=== PATIENT | female | born 1950 | race Caucasian/White ===

== ENCOUNTER 2021-05-30 07:11 | Outpatient (REF) | payer MEDICARE, SELFPAY ==
[2021-05-30 11:53] LABS: Alanine Aminotransferase 16 U/L (0-31); Albumin Level 4.5 g/dL (3.5-5.0); Alkaline Phosphatase 74 U/L (39-117); Anion Gap 13 (12-20); Aspartate Amino Transferase 25 U/L (5-31); Bilirubin Total 0.5 mg/dL (0.0-1.0); Blood Urea Nitrogen 18 mg/dL (9-16); Calcium 9.3 mg/dL (8.4-10.2); Carbon Dioxide 26 mmol/L (22-29); Chloride 106 mmol/L (96-108); Cholesterol 189 mg/dL; Estimated Glomerular Filt Rate > 60; Glucose Fasting 87 mg/dL (60-99); HDL Cholesterol 72 mg/dL; LDL Cholesterol Calculated 105 mg/dl; Potassium 4.1 mmol/L (3.3-5.1); Sodium 141 mmol/L (135-145); Total Protein 7.5 g/dL (6.5-8.0); Triglycerides 63 mg/dL
[2021-05-30 11:57] LABS: Hematocrit 41.2 % (37-47); Hemoglobin 13.5 g/dl (12.0-16.0); Mean Corpuscular HGB Conc 32.8 g/dl (31.0-35.0); Mean Corpuscular Hemoglobin 31.7 pg (27.0-33.0); Mean Corpuscular Volume 96.7 fL (80-98); Mean Platelet Volume 9.8 fL (9.4-12.3); Platelet Count 209 X10*3/uL (160-400); Red Blood Count 4.26 X10*6/uL (4.20-5.50); Red Cell Distribution Width 12.5 % (11.0-16.0); White Blood Count 4.9 X10*3/uL (4.8-10.8)
[2021-05-30 12:16] LABS: TSH reflex Free T4 2.12 uIU/mL (0.32-4.0)
== END 2021-05-30 07:12 | disposition home or self-care (01) ==
LOC: HO.HMGCLDS 07:11
PROVIDERS: PCP Internal Medicine; Visit Provider Internal Medicine
DX: Z00.00 Encounter for general adult medical examination without abnormal findings (principal); E03.9 Hypothyroidism, unspecified
CPT/HCPCS: 36415; 80053; 80061; 84443; 85027

== ENCOUNTER 2021-07-21 08:17 | Outpatient (REF) | payer MEDICARE, SELFPAY ==
--- NOTE | ~2021-07-21 | MM_ITS ---
EXAMINATION: BONE DENSITOMETRY CLINICAL INDICATION: Other specified disorders of bone density and structure, unspecified site. COMPARISON: Baseline BD dated 01/14/2019. This is the baseline study for the left forearm radius 33%. TECHNIQUE: Using a [employer] DXA System (software version: 13.1) manufactured by [employer], dual-energy x-ray absorptiometry was performed of the lumbar spine and left forearm radius 33%. The patient has had bilateral hip replacements. The images are of good technical quality. Summary results are attached. FINDINGS: AP SPINE L1-L4 (excluding L2): The data of L1-L4 has been changed to exclude the L2 vertebral body, because degenerative changes at this level may cause overestimation of lumbar spine density. Current: BMD 1.277 g/cm2, Z-score 2.2, T-score 0.9, normal, 1.4% increase from baseline (<5% change is not significant). Baseline: BMD 1.259 g/cm2. LEFT FOREARM RADIUS 33%: Current: BMD 0.693 g/cm2, Z-score 0.0, T-score -2.1, osteopenia. Prior: Not previously measured. IDENTIFIED RISK FACTORS: Height loss. History of adult fracture. Menopause. HISTORY OF FRACTURE: Wrist. MEDICATIONS: Multivitamin. Vitamin D. MM/XR DEXA axial skeleton IMPRESSION: 1. DIAGNOSIS: Osteopenia based on the lowest T-score value of -2.1 in the left forearm applying World Health Organization criteria. 2. 10-YEAR FRACTURE RISK PREDICTION, FRAX: Not performed in this patient without a femoral neck BMD measurement. 3. Treatment Recommendations: NOF guidelines recommend consideration for treatment in postmenopausal women and men age 50 and older presenting with the following: -A hip or vertebral (clinical or morphometric) fracture. -T-score less than or equal to -2.5 at the femoral neck or spine after appropriate evaluation to exclude secondary causes. -Low bone mass at the hip or spine and a 10-year fracture probability by FRAX of greater than or equal to 3% for hip fracture or greater than or equal to 20% for major osteoporotic fracture based on the [place] adapted WHO algorithm. 4. Other Recommendations: All treatment decisions require clinical judgment and consideration of individual patient factors, including patient preferences, comorbidities, previous drug use, risk factors not captured in the FRAX model (e.g. frailty, falls, vitamin D deficiency, increased bone turnover, interval significant decline in bone density) and possible under or overestimation of fracture risk by FRAX. Additional medical evaluation for secondary cause of low bone mineral density may be appropriate. FUTURE SCAN RECOMMENDATION: People with diagnosed cases of osteoporosis or at high risk for fracture should have regular bone mineral density tests. For patients eligible for Medicare, routine testing is allowed once every 2 years. The testing frequency can be increased to one year for patients who have rapidly progressing disease, those who are receiving or discontinuing medical therapy to restore bone mass, or have additional risk factors.
== END 2021-07-21 08:18 | disposition home or self-care (01) ==
LOC: HO.MAMMO 08:17
PROVIDERS: PCP Internal Medicine; Visit Provider Internal Medicine
DX: Z13.820 Encounter for screening for osteoporosis (principal); M85.80 Other specified disorders of bone density and structure, unspecified site; Z78.0 Asymptomatic menopausal state; Z79.899 Other long term (current) drug therapy; Z87.81 Personal history of (healed) traumatic fracture
CPT/HCPCS: 77080

== ENCOUNTER 2021-07-21 12:10 | Outpatient (REF) | payer MEDICARE, SELFPAY ==
[2021-07-21 14:54] LABS: CDiff Gene PCR NEGATIVE (Negative)
== END 2021-07-21 12:11 | disposition home or self-care (01) ==
LOC: HO.HMGCLNP 12:10
PROVIDERS: Visit Provider Hospitalist
DX: Z11.2 Encounter for screening for other bacterial diseases (principal)
CPT/HCPCS: 87493

== ENCOUNTER 2021-08-09 16:37 | Outpatient (REF) | payer MEDICARE, SELFPAY | END 2021-08-09 16:38 | disposition home or self-care (01) | LOC: HO.LNP 16:37 | PROVIDERS: Visit Provider Internal Medicine | DX: N39.0 Urinary tract infection, site not specified (principal) | CPT/HCPCS: 87086; 87088; 87186 ==

== ENCOUNTER 2021-08-18 13:15 | Outpatient (REF) | payer MEDICARE, SELFPAY ==
[2021-08-18 14:04] LABS: Appearance Urine HAZY; Color Urine YELLOW; Glucose Urine UA NEG (NEG); Leukocyte Esterase Urine 2+ (NEG); Nitrite Urine POS (NEG); UACC Culture Trigger YES; Urine Blood TRACE (NEG); Urine Ketones 5 MG/DL (NEG); Urine Protein TRACE MG/DL (NEG-TRACE)
[2021-08-18 14:18] LABS: Bacteria Urine 4+ /LPF; Renal Epithelial Cells Urine TRACE /LPF; Squamous Epithelial Cell Urine 2+ /LPF
== END 2021-08-18 13:16 | disposition home or self-care (01) ==
LOC: HO.HMGCLDS 13:15
PROVIDERS: PCP Internal Medicine; Visit Provider Internal Medicine
DX: N39.0 Urinary tract infection, site not specified (principal)
CPT/HCPCS: 81001; 81003; 87086; 87088; 87186

== ENCOUNTER 2021-09-01 13:36 | Outpatient (REF) | payer MEDICARE, SELFPAY ==
--- NOTE | ~2021-09-01 | XR_ITS ---
EXAMINATION: XR CHEST CLINICAL INFORMATION: Cough. COMPARISON: None TECHNIQUE: 2 views of the chest were obtained. FINDINGS: No significant abnormality is noted involving the heart, lungs, mediastinum, bony thorax or soft tissues. XR/XR chest 2V IMPRESSION: Unremarkable chest exam.
== END 2021-09-01 13:37 | disposition home or self-care (01) ==
LOC: HO.HMGCX 13:36
PROVIDERS: PCP Internal Medicine; Visit Provider Physician Assistant Medical
DX: R05.9 Cough, unspecified (principal)
CPT/HCPCS: 71046

== ENCOUNTER 2022-01-18 14:25 | Outpatient (REF) | payer MEDICARE, SELFPAY | END 2022-01-18 14:26 | disposition home or self-care (01) | LOC: HO.LNP 14:25 | PROVIDERS: Visit Provider Physician Assistant | DX: N39.0 Urinary tract infection, site not specified (principal) | CPT/HCPCS: 87086; 87088; 87186 ==

== ENCOUNTER 2022-06-01 09:04 | Outpatient (REF) | payer MEDICARE, SELFPAY ==
[2022-06-01 11:20] LABS: Appearance Urine CLEAR; Color Urine YELLOW; Glucose Urine UA NEG (NEG); Leukocyte Esterase Urine 1+ (NEG); Nitrite Urine NEG (NEG); Urine Blood 2+ (NEG); Urine Ketones NEG (NEG); Urine Protein NEG (NEG-TRACE)
[2022-06-01 11:37] LABS: Hematocrit 39.3 % (37.0-47.0); Hemoglobin 13.3 g/dl (12.0-16.0); Mean Corpuscular HGB Conc 33.8 g/dl (31.0-35.0); Mean Corpuscular Hemoglobin 31.8 pg (27.0-33.0); Mean Platelet Volume 9.7 fL (9.4-12.3); Platelet Count 217 X10*3/uL (160-400); Red Blood Count 4.18 X10*6/uL (4.20-5.50); Red Cell Distribution Width 12.7 % (11.0-16.0); White Blood Count 3.9 X10*3/uL (4.8-10.8)
[2022-06-01 12:13] LABS: TSH reflex Free T4 2.42 uIU/mL (0.32-4.0)
[2022-06-01 12:14] LABS: Alanine Aminotransferase 33 U/L (0-31); Albumin Level 4.3 g/dL (3.5-5.0); Alkaline Phosphatase 76 U/L (39-117); Anion Gap 13 (12-20); Aspartate Amino Transferase 33 U/L (5-31); Bilirubin Total 0.4 mg/dL (0.0-1.0); Blood Urea Nitrogen 14 mg/dL (9-16); Calcium 9.5 mg/dL (8.4-10.2); Carbon Dioxide 24 mmol/L (22-29); Chloride 107 mmol/L (96-108); Cholesterol 165 mg/dL; Estimated Glomerular Filt Rate > 60; Glucose Fasting 112 mg/dL (60-99); HDL Cholesterol 71 mg/dL; LDL Cholesterol Calculated 83 mg/dl; Potassium 4.5 mmol/L (3.3-5.1); Sodium 139 mmol/L (135-145); Total Protein 7.3 g/dL (6.5-8.0); Triglycerides 59 mg/dL
[2022-06-01 12:14] LABS: Calcium Oxalate Crystals Urine 2+ /LPF; Squamous Epithelial Cell Urine 2+ /LPF
[2022-06-01 12:15] LABS: WBC Urine 0-2 /HPF (0-4)
[2022-06-01 12:16] LABS: Bacteria Urine TRACE /LPF; Mucus Urine 1+ /LPF
== END 2022-06-01 09:05 | disposition home or self-care (01) ==
LOC: HO.HMGCLDS 09:04
PROVIDERS: PCP Internal Medicine; Visit Provider Internal Medicine
DX: E03.9 Hypothyroidism, unspecified (principal); E78.5 Hyperlipidemia, unspecified; M19.019 Primary osteoarthritis, unspecified shoulder; M85.80 Other specified disorders of bone density and structure, unspecified site
CPT/HCPCS: 36415; 80053; 80061; 81001; 84443; 85027

== ENCOUNTER 2022-11-06 06:26 | Day surgery (SDC) | payer MEDICARE, SELFPAY ==
--- NOTE | 2022-11-05 10:58 | HO.ANESPROP2 ---
Documented by User: Rhonda Wilson NP 11/05/22 11:01 HPI - Anesthesia Eval Consult details Narrative: 72yo F for Colonoscopy PMFSH Active Problems Active Problems: All Active Problems (Updated 09/15/22 @ 08:46 by Carlos Alberto Orellana MD) Upper respiratory tract infection (Acute) Vitamin D deficiency (Acute) Hyperglycemia (Acute) Recurrent UTI (Acute) UTI (urinary tract infection) (Acute) Sialoadenitis (Acute) Subcutaneous cyst (Acute) Cough (Acute) Urinary tract infection (Acute) Acute diarrhea (Acute) Postmenopausal (Acute) Hyperlipidemia (Acute) Osteopenia (Acute) Normal colonoscopy (Acute) Mammogram normal (Acute) OA (osteoarthritis) of shoulder (Acute) S/P bilateral hip replacements (Acute) Annual physical exam (Acute) Hypothyroidism (Acute) Past Medical History Medical History (Updated 11/05/22 @ 10:59 by Rhonda Wilson NP) Annual physical exam Glaucoma HTN (hypertension) Hyperlipidemia Hypothyroidism Mammogram normal Normal colonoscopy OA (osteoarthritis) of shoulder Osteopenia Postmenopausal Recurrent UTI Subcutaneous cyst Family History Family History Mother Mental health disorder Sister Mental health disorder Sister Mental health disorder Sister Mental health disorder Sister Mental health disorder Surgical History Surgical History (Updated 11/06/22 @ 06:39 by Noy Sofia) H/O colonoscopy S/P bilateral hip replacements S/P wrist surgery Social History Social History Housing: House Patient Tobacco Use Status: Never used Tobacco e-Cigarette/Vaping Use: Never Used Second Hand Smoke Exposure: No Use of substances other than those prescribed or required for medical reasons: No Are you DNR?: No Advance Directives: No Advance Directives Information Provided: Yes service: No Current occupational status: retired Meds Allergies Allergy/AdvReac Type Severity Reaction Status Date / Time brimonidine Allergy Unknown excessive Verified 11/06/22 06:39 sleepiness oxycodone Allergy Unknown nausea, Verified 11/06/22 06:39 hallucinations Sulfa (Sulfonamide Allergy Unknown HIVES Verified 11/06/22 06:39 Antibiotics) [SULFA (SULFONAMIDE ANTIBIOTICS)] timolol Allergy Unknown lowers Verified 11/06/22 06:39 blood pressure to dangeous levels Home Medications Medication Instructions Recorded Confirmed Last Taken Type netarsudil 0.02 %-latanoprost 0 drp ophthalmic (eye) 06/06/21 06/07/22 Unknown History 0.005 % eye drops Exam Exam Date and Time: November 05, 2022 1058 Pertinent Lab Results Pertinent Lab Results: Laboratory Tests 06/01/22 06/01/22 09:13 09:13 WBC 3.9 L Hgb 13.3 Hct 39.3 Plt Count 217 Sodium 139 Potassium 4.5 Chloride 107 Carbon Dioxide 24 BUN 14 Creatinine 0.76 Assessment and Plan Assessment Anesthesia Assessment: Chart Reviewed Documented by User: Tati Payan MD 11/06/22 07:29 [facility] Past Medical History Medical History (Updated 11/05/22 @ 10:59 by Rhonda Wilson NP) Annual physical exam Glaucoma HTN (hypertension) Hyperlipidemia Hypothyroidism Mammogram normal Normal colonoscopy OA (osteoarthritis) of shoulder Osteopenia Postmenopausal Recurrent UTI Subcutaneous cyst Family History Family History Mother Mental health disorder Sister Mental health disorder Sister Mental health disorder Sister Mental health disorder Sister Mental health disorder Family history of problems with anesthesia: No Surgical History Surgical History (Updated 11/06/22 @ 06:39 by Noy Sofia) H/O colonoscopy S/P bilateral hip replacements S/P wrist surgery History of Problems with Anesthesia: No Social History Social History Housing: House Patient Tobacco Use Status: Never used Tobacco e-Cigarette/Vaping Use: Never Used Second Hand Smoke Exposure: No Use of substances other than those prescribed or required for medical reasons: No Are you DNR?: No Advance Directives: No Advance Directives Information Provided: Yes service: No Current occupational status: retired Meds Allergies Allergy/AdvReac Type Severity Reaction Status Date / Time brimonidine Allergy Unknown excessive Verified 11/06/22 06:39 sleepiness oxycodone Allergy Unknown nausea, Verified 11/06/22 06:39 hallucinations Sulfa (Sulfonamide Allergy Unknown HIVES Verified 11/06/22 06:39 Antibiotics) [SULFA (SULFONAMIDE ANTIBIOTICS)] timolol Allergy Unknown lowers Verified 11/06/22 06:39 blood pressure to dangeous levels Home Medications Medication Instructions Recorded Confirmed Last Taken Type netarsudil 0.02 %-latanoprost 0 drp ophthalmic (eye) 06/06/21 06/07/22 Unknown History 0.005 % eye drops Exam Airway Mallampati Class: II TM Dist: >3cm Neck ROM: Full Loose/Missing/Broken Teeth: Yes and Lower Heart: rrr Lungs: cta Assessment and Plan Assessment Anesthesia Assessment: Anesthesia Plan Discussed Final Anesthetic Review Family History of Problems with Anesthesia: No History of Problems with Anesthesia: No NPO: Yes ASA Class: II Final Preanesthetic Review: No Changes in Pt Med Stat Patient Risk: Low Procedure Risk: Low Anesthetic Plan Anesthetic Plan: MAC: Disposition: Standard PACU
[2022-11-06 06:40] VITALS: BMI 29.2
[2022-11-06 06:58] VITALS: BP 120/63; PULSE 58; RESP 16; TEMP 36.7; O2SAT 95
[2022-11-06] MEDS: Lactated Ringers 1,000 ML 100 ML IVCONT (07:09)
--- NOTE | 2022-11-06 07:34 | MHC.SHP ---
Pre-Procedural Eval Section A Date of Service: 11/06/22 Section B Chief Complaint: Encounter for screening for malignant neoplasm of Details of Present Illness: see h* p no changes Relevant Family History (Specify if Yes): No Relevant Social History: None Present Medications: see Short Stay Collaborative assessment Medical History: No relevant PMH History of Previous Operations: No relevant previous surgery Allergies: Allergies Allergy/AdvReac Type Severity Reaction Status Date / Time brimonidine Allergy Unknown excessive Verified 11/06/22 06:39 sleepiness oxycodone Allergy Unknown nausea, Verified 11/06/22 06:39 hallucinations Sulfa (Sulfonamide Allergy Unknown HIVES Verified 11/06/22 06:39 Antibiotics) [SULFA (SULFONAMIDE ANTIBIOTICS)] timolol Allergy Unknown lowers Verified 11/06/22 06:39 blood pressure to dangeous levels Review of Systems Sugical H&P ROS: Negative: Constitution, Cardiovascular, Respiratory, Neurological, Psychiatric, Hem-Onc, Allergic/Immunologic, Gastrointestinal, Genitourinary, Musculoskeletal, Integumentary, Endocrine and Eyes/Ears/Nose/Throat Exam Surgical H&P Exam: Normal: HEENT, Normal: Heart, Normal: Lungs, Normal: Extremities, Normal: Abdomen, Normal: Skin and Normal: Neurological Plan Diagnosis/Plan: Unchanged I have reviewed the history and physical and performed a pertinent physical examination on my patient. No changes have occurred unless specified.
--- NOTE | 2022-11-06 07:58 | PM.OP ---
Brief Operative Note Date of Service: 11/06/22 Pre-op diagnosis: screening Post-op diagnosis: same Surgeon: Rick Nagel Anesthesia: MAC Was an Dental Surgery Doctor used for this Procedure?: No Estimated blood loss (mL): 2 Pathology: other Condition: stable Disposition: PACU
[2022-11-06 08:03] VITALS: BP 101/50; PULSE 67; RESP 18; TEMP 36.7; O2SAT 98
[2022-11-06 08:18] VITALS: BP 118/62; PULSE 54; RESP 18; TEMP 36.7; O2SAT 97
--- NOTE | 2022-11-06 19:08 | OP_ITS ---
SURGEON: Rick Nagel MD INDICATIONS: Colon cancer screening. PREOPERATIVE DIAGNOSIS: POSTOPERATIVE DIAGNOSIS: PROCEDURE PERFORMED: Colonoscopy to the terminal ileum with biopsy. ESTIMATED BLOOD LOSS: COMPLICATIONS: ANESTHESIA: Monitored anesthesia care. ASSISTANTS: SPECIMENS: DESCRIPTION OF PROCEDURE: The procedure was performed on 11/06/2022. A history and physical performed. The risks and benefits of the procedure were explained to the patient. Informed consent was obtained. The patient was placed in the left lateral decubitus position. A digital rectal exam was performed and was found to be normal. The Olympus pediatric video colonoscope was introduced into the rectum and advanced to the cecum without difficulty. The cecum was identified by transillumination, palpation, and identification of ileocecal valve, examination was performed. The scope was removed. She tolerated the procedure well and was taken to recovery in stable condition. FINDINGS: The terminal ileum was normal. The visualized colonic mucosa was within normal limits without evidence of masses or ulcers. There was some liquid and semi-formed stool left, which limited the sensitivity examination particularly in the sigmoid and descending colon. A single polyp measuring less than 5 mm was identified at 70 cm and removed with biopsy forceps. No other polyps were identified. There was moderate sigmoid diverticulosis with diffuse scattered diverticulosis. Retroflexed examination showed small internal hemorrhoids. IMPRESSION: Colon polyp. RECOMMENDATIONS: Follow up biopsy results. MD GUILLE Owens/SATYA / [id number]
== END 2022-11-06 08:41 | disposition home or self-care (01) ==
PROVIDERS: PCP Internal Medicine; Visit Provider Internal Medicine Gastroenterology
PROC: 0DJD8ZZ Inspection of Lower Intestinal Tract, Via Natural or Artificial Opening Endoscopic (ICD-10-PCS; CPT 45378; principal; 2022-11-06 07:30)
DX: Z12.11 Encounter for screening for malignant neoplasm of colon (principal); D12.6 Benign neoplasm of colon, unspecified; K57.30 Diverticulosis of large intestine without perforation or abscess without bleeding; K64.8 Other hemorrhoids; Z80.0 Family history of malignant neoplasm of digestive organs; I10 Essential (primary) hypertension; E03.9 Hypothyroidism, unspecified; Z79.899 Other long term (current) drug therapy; Z88.2 Allergy status to sulfonamides; Z88.5 Allergy status to narcotic agent; Z88.8 Allergy status to other drugs, medicaments and biological substances
CPT/HCPCS: 45380; 88305

== ENCOUNTER 2023-04-08 08:43 | Outpatient (REF) | payer MEDICARE, SELFPAY ==
[2023-04-08 11:33] LABS: MANUAL DIFF FLAG NO
[2023-04-08 11:46] LABS: Basophils Percent Auto 0.9 % (0-2); Eosinophils Absolute Auto 0.1 X10*3/uL (0.0-0.4); Hematocrit 39.2 % (37.0-47.0); Hemoglobin 13.2 g/dl (12.0-16.0); Lymphocytes Absolute Auto 1.5 X10*3/uL (1.2-4.9); Lymphocytes Percent Auto 45.6 % (20-40); Mean Corpuscular HGB Conc 33.7 g/dl (31.0-35.0); Mean Corpuscular Volume 95.1 fL (80.0-98.0); Mean Platelet Volume 9.9 fL (9.4-12.3); Monocytes Absolute Auto 0.3 X10*3/uL (0.1-1.2); Monocytes Percent Auto 9.5 % (2-11); Neutrophils Absolute Auto 1.4 x10*3/uL (2.0-8.3); Platelet Count 218 X10*3/uL (160-400); Red Blood Count 4.12 X10*6/uL (4.20-5.50); Red Cell Distribution Width 12.2 % (11.0-16.0); White Blood Count 3.4 X10*3/uL (4.8-10.8)
[2023-04-08 11:56] LABS: Estimated Average Glucose 114 mg/dL; Hemoglobin A1c % 5.6 %
[2023-04-08 12:25] LABS: Alanine Aminotransferase 23 U/L (0-31); Albumin Level 4.1 g/dL (3.5-5.0); Alkaline Phosphatase 80 U/L (39-117); Anion Gap 9 (12-20); Aspartate Amino Transferase 26 U/L (5-31); Bilirubin Total 0.8 mg/dL (0.0-1.0); Blood Urea Nitrogen 13 mg/dL (9-16); Calcium 9.3 mg/dL (8.4-10.2); Carbon Dioxide 27 mmol/L (22-29); Chloride 110 mmol/L (96-108); Cholesterol 163 mg/dL; Estimated Glomerular Filt Rate > 60; Glucose Fasting 91 mg/dL (60-99); HDL Cholesterol 66 mg/dL; LDL Cholesterol Calculated 88 mg/dl; Magnesium 2.3 mg/dL (1.6-2.6); Potassium 4.4 mmol/L (3.3-5.1); Sodium 142 mmol/L (135-145); Total Protein 6.9 g/dL (6.5-8.0); Triglycerides 49 mg/dL
[2023-04-08 12:32] LABS: TSH reflex Free T4 2.91 uIU/mL (0.32-4.0); Vitamin D 25-OH Total 40.3 ng/mL (>30)
== END 2023-04-08 08:44 | disposition home or self-care (01) ==
LOC: HO.HMGCLDS 08:43
PROVIDERS: PCP Internal Medicine; Visit Provider Internal Medicine
DX: Z00.00 Encounter for general adult medical examination without abnormal findings (principal); R73.9 Hyperglycemia, unspecified; E55.9 Vitamin D deficiency, unspecified; E78.5 Hyperlipidemia, unspecified; E03.9 Hypothyroidism, unspecified; R00.2 Palpitations
CPT/HCPCS: 36415; 80053; 80061; 82306; 83036; 83735; 84443; 85025

== ENCOUNTER 2023-10-11 08:18 | Outpatient (REF) | payer MEDICARE, SELFPAY ==
[2023-10-11 11:27] LABS: MANUAL DIFF FLAG NO
[2023-10-11 11:43] LABS: Basophils Percent Auto 0.7 % (0-2); Eosinophils Absolute Auto 0.1 X10*3/uL (0.0-0.4); Eosinophils Percent Auto 1.7 % (0-4); Hematocrit 39.6 % (37.0-47.0); Hemoglobin 13.1 g/dl (12.0-16.0); Lymphocytes Absolute Auto 1.6 X10*3/uL (1.2-4.9); Lymphocytes Percent Auto 39.5 % (20-40); Mean Corpuscular HGB Conc 33.1 g/dl (31.0-35.0); Mean Corpuscular Hemoglobin 31.8 pg (27.0-33.0); Mean Corpuscular Volume 96.1 fL (80.0-98.0); Mean Platelet Volume 9.7 fL (9.4-12.3); Monocytes Absolute Auto 0.3 X10*3/uL (0.1-1.2); Monocytes Percent Auto 7.8 % (2-11); Neutrophils Absolute Auto 2.1 x10*3/uL (2.0-8.3); Neutrophils Percent Auto 50.3 % (45-73); Platelet Count 227 X10*3/uL (160-400); Red Blood Count 4.12 X10*6/uL (4.20-5.50); Red Cell Distribution Width 12.6 % (11.0-16.0); White Blood Count 4.1 X10*3/uL (4.8-10.8)
[2023-10-11 11:57] LABS: Estimated Average Glucose 108 mg/dL; Hemoglobin A1c % 5.4 % (<6.0)
[2023-10-11 12:02] LABS: Alanine Aminotransferase 19 U/L (0-31); Albumin Level 4.2 g/dL (3.5-5.0); Alkaline Phosphatase 83 U/L (39-117); Anion Gap 11 (12-20); Aspartate Amino Transferase 25 U/L (5-31); Bilirubin Total 0.5 mg/dL (0.0-1.0); Blood Urea Nitrogen 11 mg/dL (9-16); Calcium 9.3 mg/dL (8.4-10.2); Carbon Dioxide 27 mmol/L (22-29); Chloride 106 mmol/L (96-108); Cholesterol 180 mg/dL (<200); Estimated Glomerular Filt Rate > 60; Glucose Fasting 93 mg/dL (60-99); HDL Cholesterol 65 mg/dL (>40); LDL Cholesterol Calculated 102 mg/dL (<100); Potassium 3.9 mmol/L (3.3-5.1); Sodium 140 mmol/L (135-145); Total Protein 7.4 g/dL (6.5-8.0); Triglycerides 69 mg/dL (<150)
[2023-10-11 12:22] LABS: TSH reflex Free T4 2.99 uIU/mL (0.32-4.0)
[2023-10-11 12:34] LABS: Folate 13.4 ng/mL (> or = 4.0); Vitamin B12 > 2000 pg/mL (200-900)
== END 2023-10-11 08:19 | disposition home or self-care (01) ==
LOC: HO.HMGCLDS 08:18
PROVIDERS: PCP Internal Medicine; Visit Provider Internal Medicine
DX: R73.9 Hyperglycemia, unspecified (principal); E03.9 Hypothyroidism, unspecified; E78.5 Hyperlipidemia, unspecified; M85.80 Other specified disorders of bone density and structure, unspecified site; E53.8 Deficiency of other specified B group vitamins
CPT/HCPCS: 36415; 80053; 80061; 82607; 82746; 83036; 84443; 85025

== ENCOUNTER 2023-10-16 08:56 | Outpatient (AMB) | payer MEDICARE, SELFPAY ==
--- NOTE | 2023-10-16 08:57 | A.OFFVIS_ITS ---
Intake Vital Signs 10/16/23 09:03 Height 5 ft 3 in Weight 164 lb BMI 29.0 BP 90/52 L Blood Pressure Location Rt brachial Position Sitting Pulse 57 Pulse Source Pulse Oximeter Pulse Oximetry (%) 97 Oxygen Delivery Method Room Air Intake Visit Reasons: SWV [id number] Allergies brimonidine Allergy (Unknown, Verified 10/16/23 09:03) excessive sleepiness oxycodone Allergy (Unknown, Verified 10/16/23 09:03) nausea, hallucinations Sulfa (Sulfonamide Antibiotics) [SULFA (SULFONAMIDE ANTIBIOTICS)] Allergy (Unknown, Verified 10/16/23 09:03) HIVES timolol Allergy (Unknown, Verified 10/16/23 09:03) lowers blood pressure to dangeous levels Medication List - Last Reconciled 10/16/23 by Melvi Napoles MD cholecalciferol (vitamin D3) 10 mcg PO DAILY levothyroxine 50 mcg PO DAILY netarsudil-latanoprost 0.02-0.005 % 0 drps ophthalmic (eye) omega-3 fatty acids 1,000 mg PO DAILY omeprazole 40 mg PO DAILY simvastatin 20 mg PO BEDTIME Do you need a note to return to daycare/school/sports/work: No HPI V G0439 HPI Details Pt presents for annual. Patient is concerned about her worsening balance and short-term memory. Her twin sister was diagnosed with normal pressure hydrocephalus. Initiated the conversation about Advanced Directives. Advanced Directives help? patients prepare for current and future decisions about their medical treatment? and place of care. Discussed with patient that it is a process where a patients? current condition and prognosis are reviewed, their wishes for information? regarding their illness are elicited, and likely medical dilemmas are presented? and options discussed. The form can be amended as needed, reviewed yearly and? make changes as needed IPPE/AWV ? year old presents? for her ? Annual? Wellness Visit, initial visit.? Medical / Social History Reviewed? Past Medical History ?Yes? . ? [place]? of Care / Care Team list updated ?Yes . ? Surgical/Hospitalization? History ?Yes . ? Current Medications? (including OTC and supplements) ?Yes . ? Family History ?Yes? . ? Tobacco? Control form ?Yes . ? AUDIT-C (Alcohol use) form? ?Yes . ? Illicit drug use in Social? History ?Yes . ? Current diagnosis of? depression? ?No ? Appropriate PHQ2/PHQ9? completed ?Yes . ? Data entered by ?Medical? Management Advisor and reviewed by provider ? Fall Risk ? Fall? History? Have you had any falls with? injury in the past year? ?No . ? Have you had two or more? falls in the past year? ?No . ? Fall Risk Assessment: ?No? falls in the past year . ? HRA filled out by? the patient, reviewed by Provider and scanned. ? IPPE/AWV ? Balance? Romberg? ?Yes . ? Tandem? walk ?Yes . ? Walk and? Turn ?Yes . ? Rise from? sit to stand ?Yes . ?Vision? Corrective? lens ?Yes ? Vision? screen ? Up-to-date, has an appointment [] for vision? screening and glaucoma screening ?Hearing? Whisper? test ?pass .? Initiated the conversation about Advanced Directives. Advanced Directives help? patients prepare for current and future decisions about their medical treatment? and place of care. Discussed with patient that it is a process where a patients? current condition and prognosis are reviewed, their wishes for information? regarding their illness are elicited, and likely medical dilemmas are presented? and options discussed. The form can be amended as needed, reviewed yearly and? make changes as needed Written? Plan?Completed. See Patient? Documents. [facility] Medical History (Updated 10/16/23 @ 10:12 by Melvi Napoles MD) HTN (hypertension) Glaucoma Recurrent UTI Subcutaneous cyst Postmenopausal Hyperlipidemia Osteopenia Normal colonoscopy Mammogram normal OA (osteoarthritis) of shoulder Annual physical exam Hypothyroidism Surgical History (Updated 10/16/23 @ 09:39 by Melvi Napoles MD) H/O colonoscopy S/P wrist surgery S/P bilateral hip replacements Family History Mother Mental health disorder Sister Mental health disorder Sister Mental health disorder Sister Mental health disorder Sister Mental health disorder Social History Housing: House Patient Tobacco Use Status: Never used Tobacco e-Cigarette/Vaping Use: Never Used Second Hand Smoke Exposure: No service: No Current occupational status: retired Cognitive needs: No Hearing needs: No Vision needs: Yes Questionnaire Medicare Wellness Checkup [age] What gender do you identify with?: female During the past 4 weeks, how much have you been bothered by emotional problems such as feeling anxious, depressed, irritable, sad or downhearted, and blue?: not at all During the past 4 weeks, has your physical & emotional health limited your social activities with family, friends, neighbors, or groups?: not at all During the past 4 weeks, how much bodily pain have you generally had?: mild pain During the past 4 weeks, was someone available to help you if you needed & wanted help?: yes, as much as I wanted During the past 4 weeks, what was the hardest physical activity you could do for at least 2 minutes?: heavy Can you get to places out of walking distance without help? (For eg., can you travel alone on buses, taxis or drive your car?): Yes Can you go shopping for groceries or clothes without someone's help?: No Can you prepare your own meals?: Yes Can you do your housework without help?: Yes Because of any health problems, do you need the help of another person with your personal care needs such as eating, bathing, dressing or getting around the house?: No Can you handle your own money without help?: Yes During the past 4 weeks, how would you rate your health in general?: very good During the past 4 weeks how have things been going for you?: very well; could hardly better Are you having difficulties driving your car?: no Do you always fasten your seat belt when you are in a car?: yes, usually During past 4 weeks, have you been bothered by the following: never: Falling or dizzy when standing up, Sexual problems?, Trouble eating well?, Teeth or denture problems? and Problems using the telephone? and seldom: Tiredness or fatigue? Have you fallen 2 or more times in the past year?: No Are you afraid of falling?: No Are you a smoker?: no During the past 4 weeks, how many drinks of wine, beer, or other alcoholic beverages did you have?: 1 drink or less per week Do you exercise for about 20 minutes 3 or more times a week?: yes, some of the time Have you been given information to help with the following?: yes: Hazards in your house that might hurt you? and yes: Keeping track of your medications? How often do you have trouble taking medicines the way you have been told to take them?: I always take medicine as prescribed How confident are you that you can control & manage most of your health problems?: very confident What is your race?: White Mini Mental State Exam (MMSE) Orientation What is the (year) (season) (date) (day) (month)?: year, season, date, day and month Where are we (state) (county) (town or city) (hospital) (floor)?: state, county, town or city, hospital/clinic and floor Registration Name of 3 unrelated objects clearly and slowly, then ask patient to repeat all 3 of them. (1st repeat determines score. Make sure they can repeat all three): object 1, object 2 and object 3 Attention & Calculation (CHOOSE ONE) Spell WORLD backwards (DLROW): 5 letters Recall Ask patient to repeat the 3 items from question #3.: object 1, object 2 and ob ject 3 Language Show patient a wristwatch & ask what it is. Repeat for pencil.: watch and pencil Ask the patient to repeat the phrase 'No ifs, ands, or buts' after you.: correct Ask the patient to 'take a piece of paper with their right hand' 'fold paper in half' 'place paper on floor': take paper in right hand, fold paper in half and place paper on floor Print the sentence 'CLOSE YOUR EYES' on a piece. If patient actually closes eyes then score.: followed written direction Give patient a blank piece of paper & ask to write a sentence. Score if it contains a noun & verb.: sentence contains subject and verb Ask patient to copy figure of intersecting pentagons exactly. Score if all 10 angles & 2 intersects are included.: all 10 angles present & 2 are intersected Score Score: 30 PHQ-9 Over the last 2 weeks, how often have you been bothered by any of the following problems? 1. Little interest or pleasure in doing things: not at all 2. Feeling down, depressed, or hopeless: not at all 3. Trouble falling or staying asleep, or sleeping too much: not at all 4. Feeling tired or having little energy: not at all 5. Poor appetite or overeating: not at all 6. Feeling bad about yourself - or that you are a failure or have let yourself or your family down: not at all 7. Trouble concentrating on things, such as reading the newspaper or watching television: not at all 8. Moving or speaking so slowly that other people could have noticed. Or the opposite - being so fidgety or restless that you have been moving around a lot more than usual: not at all 9. Thoughts that you would be better off or of hurting yourself in some way: not at all Total score: 0 Depression Screening Interpretation: Negative Depression Screening Done: Yes 24407 - PHQ-9 Billing: Yes Source: Developed by Drs. Leon Rangel, Ame Guzman, Jose Maria Moore and colleagues, with an educational ravi from [employer]. Review of Systems Const All systems reviewed & are unremarkable except as noted in HPI and below Reports no additional complaints Eyes Reports no additional complaints ENT Reports no additional complaints Card Reports no additional complaints Resp Reports no additional complaints GI Reports no additional complaints Reports no additional complaints Physical Exam Vital Signs: Last Vital Signs Pulse 57 10/16/23 09:03 BP 90/52 L 10/16/23 09:03 Pulse Ox 97 10/16/23 09:03 Oxygen Delivery Method Room Air 10/16/23 09:03 BMI result Body Mass Index 29.0 Const General: no acute distress HEENT Head: Yes normal to inspection Ears: hearing grossly normal bilaterally General nose exam: Normal external nose present Mouth: Normal oral and palatal mucosa present Throat: Yes posterior oropharynx normal Neck Neck: Yes no lymphadenopathy and Yes supple Resp Effort & Inspection: normal respiratory effort Auscultation: clear to auscultation bilaterally Cardio Rhythm: regular rhythm Heart sounds: S1 normal heart sound present and S2 normal heart sound present GI Inspection: Yes normal to inspection Palpation (GI): Soft to palpation Percussion: Yes normal to percussion Auscultation: normal bowel sounds Neuro Cranial nerves: Yes CN's II-XII intact bilaterally Gait exam (Neuro): Normal gait present Motor exam (neuro): 5/5 motor strength present throughout Coordination: [id number] test normal Romberg Test: Positive Assessment & Plan Assessment & Plan (1) Normal colonoscopy: Comment: 2017, repeat in 5 ys, Fx of colon ca (2) Annual physical exam: Code(s): Z00.00 - Encounter for general adult medical examination without abnormal findings Plan: Well-balanced diet regular physical activity discussed with the patient. She is up-to-date with the mammogram and will have a repeat colonoscopy next year. (3) Hypothyroidism: Code(s): E03.9 - Hypothyroidism, unspecified Plan: Continue levothyroxine (4) Hyperlipidemia: Code(s): E78.5 - Hyperlipidemia, unspecified Plan: Continue statin (5) Balance problem: Code(s): R26.89 - Other abnormalities of gait and mobility Plan: Check brain CT (concern about family(twin sister) history of normal-pressure hydrocephalus) and worsening balance and memory Orders: Orders CT head/brain wo IV con Today R29.818 - Other symptoms and signs involving the nervous system Lipid Panel 6 Months E03.9 - Hypothyroidism, unspecified, E55.9 - Vitamin D deficiency, unspecified, E78.5 - Hyperlipidemia, unspecified, R73.9 - Hyperglycemia, unspecified TSH reflex Free T4 6 Months E03.9 - Hypothyroidism, unspecified, E55.9 - Vitamin D deficiency, unspecified, E78.5 - Hyperlipidemia, unspecified, R73.9 - Hyperglycemia, unspecified Complete Blood Count Auto Diff 6 Months E03.9 - Hypothyroidism, unspecified, E55.9 - Vitamin D deficiency, unspecified, E78.5 - Hyperlipidemia, unspecified, R73.9 - Hyperglycemia, unspecified Comprehensive [place]. Panel Fast 6 Months E03.9 - Hypothyroidism, unspecified, E55.9 - Vitamin D deficiency, unspecified, E78.5 - Hyperlipidemia, unspecified, R73.9 - Hyperglycemia, unspecified Vitamin D 25-OH Total 6 Months E03.9 - Hypothyroidism, unspecified, E55.9 - Vitamin D deficiency, unspecified, E78.5 - Hyperlipidemia, unspecified, R73.9 - Hyperglycemia, unspecified Quality Reporting (2019) Depression/Bipolar (159/160/161/177) PHQ-9: Total score: 0 Coding Level of Care Code Medicare Subsequent (G0439) Diagnoses Normal colonoscopy Annual physical exam Z00.00 Hypothyroidism E03.9 Hyperlipidemia E78.5 Balance problem R26.89 CPT Codes Advance Care Planning - Time spent: 1-15 minutes, not on file ([id number]) Advance Care Planning Advance Care Planning discussion: Exists, not on file Time spent: 1-15 minutes, not on file
[2023-10-16 09:03] VITALS: BP 90/52; PULSE 57; O2SAT 97; BMI 29.0
== END 2023-10-16 10:15 | disposition home or self-care (01) ==
PROVIDERS: Visit Provider Internal Medicine
DX: Z00.00 Encounter for general adult medical examination without abnormal findings (principal); E03.9 Hypothyroidism, unspecified; E78.5 Hyperlipidemia, unspecified; R26.89 Other abnormalities of gait and mobility
CPT/HCPCS: 1124F; G0439

== ENCOUNTER 2023-11-13 07:39 | Outpatient (REF) | payer MEDICARE, SELFPAY ==
--- NOTE | ~2023-11-13 | CT_ITS ---
CT HEAD WITHOUT CONTRAST CLINICAL INFORMATION: Positive Romberg test. COMPARISON: None available. TECHNIQUE: Contiguous axial imaging was performed from the skull base to vertex without intravenous administration of contrast. This CT examination was performed using dose optimization techniques as appropriate, variously including the following: *Automated exposure control *Adjustment of mA and/or kV according to patient size (this includes techniques or standardized protocols for targeted exams where dose is matched to indication/reason for exam; i.e. extremities or head) *Use of iterative reconstruction technique FINDINGS: There is no intracranial hemorrhage, hydrocephalus, extra-axial surface collection, midline shift, or other herniation pattern. Muñoz to white matter differentiation is diffusely maintained without evidence of an evolved acute territorial infarct. The basilar cisterns are preserved. No significant soft tissue abnormality. No acute osseous abnormality. The paranasal sinuses and the mastoid air cells are well aerated. 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 CT/CT head/brain wo IV con IMPRESSION: - No acute intracranial abnormality. 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
== END 2023-11-13 07:40 | disposition home or self-care (01) ==
LOC: HO.CT 07:39
PROVIDERS: PCP Internal Medicine; Visit Provider Internal Medicine
DX: R29.818 Other symptoms and signs involving the nervous system (principal)
CPT/HCPCS: 70450

== ENCOUNTER 2023-12-19 09:37 | Outpatient (AMB) | payer MEDICARE, SELFPAY ==
--- OUTSIDE RECORDS SUMMARY | 2023-12-19 09:39 | XMS_ITS | Patient Health Record ---
Author Name Unknown Organization [facility] Address [address] [place] [id number] Care Team Providers Care Cemetery Manager Name Role Phone Melvi Napoles MD Primary Care Provider Rick Couch Jr Unavailable [phone] ALLERGIES Allergen (clinical drug ingredient) Drug/Non Drug Allergy documented on EMR Reaction Allergy Type Onset Date Status Sulfa Unknown Drug Allergy Active Timolol Unknown Drug Allergy Active REASON FOR REFERRAL No Information MEDICATIONS Medication SIG (Take, Route, Frequency, Duration) Notes Start Date End Date Status MiraLax (colon prep) 17 GM/SCOOP mixed with Gatorade or Crystal Light Orally begin at 5:00 p.m. the day before the procedure for 1 day 08/27/2022 Active Simvastatin 20 MG 1 tablet in the even ing Orally Once a day Active Levothyroxine Sodium 50 MCG 1 capsule Or ally Once a day Active Latanoprost 0.005 % 1 drop into affected eye in the evening Ophthalmic Once a day Active Omeprazole 40 MG 1 capsule Orally Onc e a day Active Multi Vitamin/Minerals 1 1 Orally QD Active Brimonidine Tartrate 0.2 % 1 drop into a ffected eye Ophthalmic Three times a day Active Probiotic 1 1 Orally QD Active IMMUNIZATIONS Vaccine Route Administration Date Status Comme nts Influenza Unknown 10/18/2021 Administered SOCIAL HISTORY Sex Assigned At : Social History Observation Description Sex Assigned At Unknown Alcohol Screen Question Answer Notes Did you have a drink contain ing alcohol in the past year? Yes How often did you have a dri nk containing alcohol in the past year? Monthly or less (1 point) How many drinks did you have on a typical day when you were drinking in the past year? 1 or 2 drinks (0 point) How often did you have 6 or more drinks on one occasion in the past year? Never (0 point) Points 1 Interpretation Negative PROBLEMS Problem Type ICD Code Onset Dates Problem Status W/U Status Risk SNOMED Code Notes Problem Colon cancer screening (Z12.11) Active confirmed [id number] Problem Diverticulosis (K57.90) Active confirmed [id number] Problem Family history of colon cancer (Z80.0) Active confirmed 575540682 Problem Long-term use of aspirin therapy (Z79.82) Active confirmed [id number] Problem Long-term current use of high risk medication other than anticoagulant (Z79.899) Active confirmed [id number] PLAN OF TREATMENT Future Test Test Name Order Date COLONOSCOPY 06/19/2012 COLONOSCOPY 02/20/2017 COLONOSCOPY 08/27/2022 Insurance Providers Payer Name Payer Address Payer Phone Subscriber Number Group Number Insured Name Patient Relationship to Insured Coverage Start Date Coverage End Date MEDICARE OF [place] [address] [place] [address] [id number] YUE COOK Self - patient is the insured [employer] ATT[employer] CLAIMS [address] [place] [phone] [id number] YUE COOK Self - patient is the insured MEDICAL (GENERAL) HISTORY Medical History History ICD Code colonoscopy 04/12/17, negativ e for polyps, five-year followup based on family history glaucoma hypothyroidism hypertension Elevated cholesterol Surgical History Surgery Date(Month/Year) tonsillectomy wrist surgery right hip replacement 09/2016 hip surgery 2020
[2023-12-19 10:26] VITALS: BP 126/64; PULSE 57; TEMP 36.4; O2SAT 97; BMI 28.5
--- NOTE | 2023-12-19 10:26 | MHC.OFFWIV ---
Intake Vital Signs 12/19/23 10:26 Height 5 ft 3 in Weight 161 lb BMI 28.5 BP 126/64 Blood Pressure Location Lt brachial Position Sitting Pulse 57 Pulse Source Pulse Oximeter Temp 97.5 F Temp Source Temporal Artery Scan Pulse Oximetry (%) 97 Oxygen Delivery Method Room Air Intake Visit Reasons: EST/cough([phone]) Intake Note: pt is here today for cough started 4 weeks ago Patient Tobacco Use Status: Never used Tobacco Allergies brimonidine Allergy (Unknown, Verified 12/19/23 10:26) excessive sleepiness oxycodone Allergy (Unknown, Verified 12/19/23 10:26) nausea, hallucinations Sulfa (Sulfonamide Antibiotics) [SULFA (SULFONAMIDE ANTIBIOTICS)] Allergy (Unknown, Verified 12/19/23 10:26) HIVES timolol Allergy (Unknown, Verified 12/19/23 10:26) lowers blood pressure to dangeous levels Medication List - Last Reconciled 12/19/23 by Trini Hidalgo, SEDRICK benzonatate 100 mg PO BID PRN cholecalciferol (vitamin D3) 10 mcg PO DAILY levothyroxine 50 mcg PO DAILY omega-3 fatty acids 1,000 mg PO DAILY omeprazole 40 mg PO DAILY simvastatin 20 mg PO BEDTIME Do you need a note to return to daycare/school/sports/work: No HPI HPI Comments History of Present Illness Details 73 y/o female presents to walk in clinic with c/o cough for 4 weeks. Denies F/C/N/V. PFSH Medical History (Updated 10/16/23 @ 10:12 by Melvi Napoles MD) HTN (hypertension) Glaucoma Recurrent UTI Subcutaneous cyst Postmenopausal Hyperlipidemia Osteopenia Normal colonoscopy Mammogram normal OA (osteoarthritis) of shoulder Annual physical exam Hypothyroidism Surgical History (Updated 10/16/23 @ 09:39 by Melvi Napoles MD) H/O colonoscopy S/P wrist surgery S/P bilateral hip replacements Family History Mother Mental health disorder Sister Mental health disorder Sister Mental health disorder Sister Mental health disorder Sister Mental health disorder Social History Housing: House Patient Tobacco Use Status: Never used Tobacco e-Cigarette/Vaping Use: Never Used Second Hand Smoke Exposure: No service: No Current occupational status: retired Cognitive needs: No Hearing needs: No Vision needs: Yes Review of Systems Const All systems reviewed & are unremarkable except as noted in HPI and below Physical Exam Vital Signs: Last Vital Signs Temp 97.5 F 12/19/23 10:26 Pulse 57 12/19/23 10:26 BP 126/64 12/19/23 10:26 Pulse Ox 97 12/19/23 10:26 Oxygen Delivery Method Room Air 12/19/23 10:26 BMI result Body Mass Index 28.5 HEENT Head: Yes normocephalic Ears: external ears normal and TM's normal bilaterally General nose exam: Normal nasal mucous membranes and turbinates present Face and sinus: Yes sinuses nontender Mouth: moist mucous membranes Resp Effort & Inspection: normal respiratory effort and Actively coughing Auscultation: clear to auscultation bilaterally Cardio Rate: regular rate Rhythm: regular rhythm Assessment & Plan Assessment & Plan (1) Cough in adult: Code(s): R05.9 - Cough, unspecified Plan: warm fluids. Rest Benzonatate for cough Medications: New benzonatate 100 mg PO BID PRN 60 caps 0RF cough Coding Level of Care Code Est Pt Level 2 (35275) Diagnoses Cough in adult R05.9 Time Spent (min) 10
== END 2023-12-19 11:16 | disposition home or self-care (01) ==
PROVIDERS: PCP Internal Medicine; Visit Provider Nurse Practitioner Family
DX: R05.9 Cough, unspecified (principal)
CPT/HCPCS: 99212

== ENCOUNTER 2024-02-28 11:05 | Outpatient (AMB) | payer MEDICARE, SELFPAY ==
[2024-02-28 11:18] VITALS: BP 130/70; PULSE 57; TEMP 36.4; O2SAT 95; BMI 27.8
--- NOTE | 2024-02-28 11:18 | AM.OFFWIN_ITS ---
Intake Vital Signs 02/28/24 11:18 Height 5 ft 3 in Weight 157 lb BMI 27.8 BP 130/70 Blood Pressure Location Lt brachial Position Sitting Pulse 57 Pulse Source Pulse Oximeter Temp 97.5 F Temp Source Temporal Artery Scan Pulse Oximetry (%) 95 Oxygen Delivery Method Room Air Intake Visit Reasons: EP Vertigo Intake Note: pt is here today for vertigo started 13 days ago Patient Tobacco Use Status: Never used Tobacco Allergies brimonidine Allergy (Unknown, Verified 02/28/24 11:21) excessive sleepiness oxycodone Allergy (Unknown, Verified 02/28/24 11:21) nausea, hallucinations Sulfa (Sulfonamide Antibiotics) [SULFA (SULFONAMIDE ANTIBIOTICS)] Allergy (Unknown, Verified 02/28/24 11:21) HIVES timolol Allergy (Unknown, Verified 02/28/24 11:21) lowers blood pressure to dangeous levels Do you need a note to return to daycare/school/sports/work: No HPI HPI Comments History of Present Illness Details 73 y/o female patient who presents to farhat her[facility] in clinic with c/o Vertigo x 2 weeks now. Pt reports feeling like the room is spinning. Denies nausea or vomiting. She has been taking OTC Meclizine and Loratadine with some mild relief. 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 She does have h/o Glaucoma and currently on medications. Denies any recent URI. Denies any sick contacts. [facility] Medical History (Updated 02/28/24 @ 12:05 by Melvi Napoles MD) HTN (hypertension) Glaucoma Recurrent UTI Subcutaneous cyst Postmenopausal Hyperlipidemia Osteopenia Normal colonoscopy Mammogram normal OA (osteoarthritis) of shoulder Annual physical exam Hypothyroidism Surgical History (Updated 10/16/23 @ 09:39 by Melvi Napoles MD) H/O colonoscopy S/P wrist surgery S/P bilateral hip replacements Family History Mother Mental health disorder Sister Mental health disorder Sister Mental health disorder Sister Mental health disorder Sister Mental health disorder Social History Housing: House Patient Tobacco Use Status: Never used Tobacco e-Cigarette/Vaping Use: Never Used Second Hand Smoke Exposure: No service: No Current occupational status: retired Cognitive needs: No Hearing needs: No Vision needs: Yes Physical Exam Vital Signs: Last Vital Signs Temp 97.5 F 02/28/24 11:18 Pulse 57 02/28/24 11:18 BP 130/70 02/28/24 11:18 Pulse Ox 95 02/28/24 11:18 Oxygen Delivery Method Room Air 02/28/24 11:18 BMI result Body Mass Index 27.8 Const General: comfortable and no acute distress Orientation/consciousness: patient oriented x3 HEENT Head: Yes normocephalic Ears: external ears normal and TM's normal bilaterally General nose exam: Normal nasal mucous membranes and turbinates present Throat: Yes posterior oropharynx normal Eyes Pupils: Equal, round and reactive pupils present EOM: EOMs intact bilaterally Resp Effort & Inspection: normal respiratory effort Cardio Rate: regular rate Rhythm: regular rhythm Neuro General: patient oriented x3 Cranial nerves: Yes Equal, round and reactive pupils present Assessment & Plan Assessment & Plan (1) Vertigo: Code(s): R42 - Dizziness and giddiness Plan: - Meclizine 50 mg BID PRN - F/U with PCP if symptoms not improved - Pt asking for ENT referral, messaged PCP Medications: New meclizine 50 mg PO BID PRN 60 tabs 0RF dizziness R42 - Dizziness and giddiness Coding Level of Care Code Est Pt Level 3 (70019) Diagnoses Vertigo R42 Time Spent (min) 15
== END 2024-02-28 12:10 | disposition home or self-care (01) ==
PROVIDERS: PCP Internal Medicine; Visit Provider Nurse Practitioner Family
DX: R42 Dizziness and giddiness (principal)
CPT/HCPCS: 99213

== ENCOUNTER 2024-03-17 09:00 | Outpatient (RCR) | payer MEDICARE, SELFPAY ==
[2024-03-06 13:16] VITALS: BP 132/78; PULSE 55; O2SAT 96
--- NOTE | 2024-03-06 14:31 | MHC.PT.EP ---
[facility] [place] Office [place] Office [place] Office [address] Analilia Smith [address] [phone] F: [phone] F: [phone] F: [phone] F: [phone] Physical Therapy Plan of Care Date of Evaluation: 03/06/24 Date of Surgery: Diagnosis: This is a 73 yo female presenting to skilled PT with a script for vertigo. Assessment: This is a 73 yo female presenting to skilled PT with a script for vertigo. Patient reporting being in [place] this winter. She reports one day about 3 weeks ago it was a warm day and she does not feel like she hydrated well enough. The next day she had a strong bout vertigo that has lasted until now. Since then she has been treating this with meclizine, loratadine and ibuprofen. She has attempted to self tx herself with information she found on the web but felt like this was making her worse. She has had a moment of vertigo in the past but it resolved in 2 days. Symptoms tend to increase with turning to the R, rolling in bed and looking up to the R. Her symptoms are described as room spinning, eyes bouncing. She also reports BOSE's, mild sense of imbalance and inability to participate in her usual very active lifestyle which includes yoga, exercise classes, ball room dancing, yardwork, driving and walking. Examination shows (-) oculomotor tests with saccades, (-) VBI B (mild symptoms noted on R), and normal cervical AROM. She was (+) for BPPV with R kimberly-hallpike and performed R tyrone maneuver which improved nystagmus s/p tx. Balance was normal except for some lightheadedness/residual BOSE that was felt throughout the session and mildly increased sway with EC. S/S consistent with R PC BPPV and concussion and she would benefit from PT 2x/wk for 4wks to address impairments, implement HEP and optimize functional mobility. 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 Manual therapy to restore motion and function. Therapeutic exercise to improve strength and flexibility. Neuromuscular re-education for posture and balance. Therapeutic activities to return to functional activities of daily living. Electronically signed by: Constance Rogers PT Please sign and return to therapist. Thank you for your referral.
--- NOTE | 2024-04-16 13:44 | MHC.PT.DC ---
[facility] [place] [facility] [place] Office [place] Office [address] Analilia Smith [address] [phone] F: [phone] F: [phone] F: [phone] F: [phone] Physical Therapy Discharge Report Diagnosis: This is a 73 yo female presenting to skilled PT with a script for vertigo. Date of Surgery: Date of Evaluation: 03/06/24 Date of Discharge: 04/16/24 Treatments to Date: 4 Cancellations to Date: 0 No Shows to Date: 0 Discharge Status: Achieved Goals Improved Function Independent with HEP Patient Elected to Stop Discharge Summary: 03/17: Patient without nystagmus noted or symptoms noted in any position. She was educated on symptoms moving forward. Her extensive glaucoma plays a role in her vision and she is undergoing cataract surgery in April. I educated her on her script and if symptoms return. At this point skilled PT is no longer indicated. Chart will be closed in 30 days if patient does not return before then. Electronically signed by: Constance Rogers PT Please sign and return to therapist. Thank you for your referral.
== END 2024-04-16 13:45 | disposition home or self-care (01) ==
LOC: HO.PTCHIC 09:00
PROVIDERS: PCP Internal Medicine; Visit Provider Internal Medicine
DX: R42 Dizziness and giddiness (principal)
CPT/HCPCS: 95992; 97110; 97162

== ENCOUNTER 2024-04-06 07:53 | Outpatient (REF) | payer MEDICARE, SELFPAY ==
[2024-04-06 10:19] LABS: MANUAL DIFF FLAG NO
[2024-04-06 10:48] LABS: Basophils Percent Auto 0.9 % (0-2); Eosinophils Absolute Auto 0.1 X10*3/uL (0.0-0.4); Eosinophils Percent Auto 2.9 % (0-4); Hematocrit 37.2 % (37.0-47.0); Hemoglobin 12.2 g/dl (12.0-16.0); Imm Gran Abs Auto 0.01 X10*3/uL (0.00-0.03); Imm Gran Pct Auto 0.3 % (0.0-0.4); Lymphocytes Absolute Auto 1.4 X10*3/uL (1.2-4.9); Lymphocytes Percent Auto 40.6 % (20-40); Mean Corpuscular HGB Conc 32.8 g/dl (31.0-35.0); Mean Corpuscular Hemoglobin 31.6 pg (27.0-33.0); Mean Corpuscular Volume 96.4 fL (80.0-98.0); Mean Platelet Volume 9.6 fL (9.4-12.3); Monocytes Absolute Auto 0.3 X10*3/uL (0.1-1.2); Monocytes Percent Auto 8.3 % (2-11); Neutrophils Absolute Auto 1.7 x10*3/uL (2.0-8.3); Platelet Count 183 X10*3/uL (160-400); Red Blood Count 3.86 X10*6/uL (4.20-5.50); Red Cell Distribution Width 12.5 % (11.0-16.0); White Blood Count 3.5 X10*3/uL (4.8-10.8)
[2024-04-06 11:04] LABS: Alanine Aminotransferase 20 U/L (0-31); Alkaline Phosphatase 67 U/L (39-117); Anion Gap 13 (12-20); Aspartate Amino Transferase 23 U/L (5-31); Bilirubin Total 0.4 mg/dL (0.0-1.0); Blood Urea Nitrogen 15 mg/dL (9-16); Calcium 9.8 mg/dL (8.4-10.2); Carbon Dioxide 24 mmol/L (22-29); Chloride 110 mmol/L (96-108); Cholesterol 144 mg/dL (<200); Estimated Glomerular Filt Rate > 60; Glucose Fasting 97 mg/dL (60-99); HDL Cholesterol 65 mg/dL (>40); LDL Cholesterol Calculated 70 mg/dL (<100); Potassium 4.1 mmol/L (3.3-5.1); Sodium 143 mmol/L (135-145); Total Protein 7.2 g/dL (6.5-8.0); Triglycerides 46 mg/dL (<150)
[2024-04-06 11:21] LABS: TSH reflex Free T4 1.91 uIU/mL (0.32-4.0); Vitamin D 25-OH Total 34.7 ng/mL (>30)
== END 2024-04-06 07:54 | disposition home or self-care (01) ==
LOC: HO.HMGCLDS 07:53
PROVIDERS: PCP Internal Medicine; Visit Provider Internal Medicine
DX: E55.9 Vitamin D deficiency, unspecified (principal); E78.5 Hyperlipidemia, unspecified; R73.9 Hyperglycemia, unspecified; E03.9 Hypothyroidism, unspecified
CPT/HCPCS: 36415; 80053; 80061; 82306; 84443; 85025

== ENCOUNTER 2024-04-08 10:04 | Outpatient (AMB) | payer MEDICARE, SELFPAY ==
[2024-04-08 10:06] VITALS: BP 114/64; PULSE 51; O2SAT 96; BMI 28.5
--- NOTE | 2024-04-08 10:06 | A.OFFPC_ITS ---
Vital Signs 04/08/24 10:06 Height 5 ft 3 in Weight 161 lb BMI 28.5 BP 114/64 Blood Pressure Location Rt brachial Position Sitting Pulse 51 Pulse Source Pulse Oximeter Pulse Oximetry (%) 96 Oxygen Delivery Method Room Air Intake Visit Reasons: 6 Month F/U Intake Note: Pt is here today for a 6 months follow up visit on labs. Allergies brimonidine Allergy (Unknown, Verified 04/08/24 10:15) excessive sleepiness oxycodone Allergy (Unknown, Verified 04/08/24 10:15) nausea, hallucinations Sulfa (Sulfonamide Antibiotics) [SULFA (SULFONAMIDE ANTIBIOTICS)] Allergy (Unknown, Verified 04/08/24 10:15) HIVES timolol Allergy (Unknown, Verified 04/08/24 10:15) lowers blood pressure to dangeous levels Medication List - Last Reconciled 04/08/24 by Melvi Napoles MD cholecalciferol (vitamin D3) 10 mcg PO DAILY levothyroxine 50 mcg PO DAILY omega-3 fatty acids 1,000 mg PO DAILY omeprazole 40 mg PO DAILY PRN simvastatin 20 mg PO BEDTIME Tobacco use date assessed: 04/08/24 Fall risk assessment: No Falls in past year Last assessed Fall Risk: 04/08/24 Dental Screening Dental Screen Date: 04/08/24 Did you have a dental visit in the last 12 months?: Yes Did you have a dental problem in the last 6 months where you did not have access to dental care?: No Was dental information given to patient?: Patient has dentist HPI 6 Month F/U HPI Details Patient presents for the follow-up of hyperlipidemia and hypothyroidism stable on current medications [facility] Medical History (Updated 04/08/24 @ 15:37 by Melvi Napoles MD) HTN (hypertension) Glaucoma Recurrent UTI Subcutaneous cyst Postmenopausal Hyperlipidemia Osteopenia Normal colonoscopy Mammogram normal OA (osteoarthritis) of shoulder Annual physical exam Hypothyroidism Surgical History (Updated 04/08/24 @ 10:36 by Melvi Napoles MD) H/O colonoscopy S/P wrist surgery S/P bilateral hip replacements Family History Mother Mental health disorder Sister Mental health disorder Sister Mental health disorder Sister Mental health disorder Sister Mental health disorder Social History (Reviewed 04/08/24 @ 10:18 by DARREL Guillermo Housing: House Patient Tobacco Use Status: Never used Tobacco e-Cigarette/Vaping Use: Never Used Second Hand Smoke Exposure: No service: No Current occupational status: retired Cognitive needs: No Hearing needs: No Vision needs: Yes Questionnaire PHQ-9 Over the last 2 weeks, how often have you been bothered by any of the following problems? 1. Little interest or pleasure in doing things: not at all 2. Feeling down, depressed, or hopeless: not at all 3. Trouble falling or staying asleep, or sleeping too much: not at all 4. Feeling tired or having little energy: not at all 5. Poor appetite or overeating: not at all 6. Feeling bad about yourself - or that you are a failure or have let yourself or your family down: not at all 7. Trouble concentrating on things, such as reading the newspaper or watching television: not at all 8. Moving or speaking so slowly that other people could have noticed. Or the opposite - being so fidgety or restless that you have been moving around a lot more than usual: not at all 9. Thoughts that you would be better off or of hurting yourself in some way: not at all Total score: 0 Depression Screening Interpretation: Negative Depression Screening Done: Yes [id number] - PHQ-9 Billing: Yes Source: Developed by Drs. Leon Rangel, mAe Guzman, Jose Maria Moore and colleagues, with an educational ravi from [employer]. Thrive Questionnaire Date Thrive assessed: 04/08/24 I am a: Patient What is your living situation today?: I have a steady place to live Within the past 12 months, did the food you bought not last and you didn't have the money to get more?: Never true Within the past 12 months, did you worry whether your food would run out before you got money to buy more?: Never true Do you have trouble paying for medicines?: No Do you have trouble getting transportation to medical appointments?: No Do you have trouble paying your heating and electricity bill?: No Do you have trouble taking care of your child, family member or friend?: No Do you have trouble with day-to-day activities such as bathing, preparing meals, shopping, managing finances, etc.?: No Are you currently unemployed and looking for a job?: No Are you interested in more education?: No Please select the resources that you would like help with: None THRIVE Score: 0 AUDIT C Alcohol Use Questionnaire (AUDIT-C) 1. How often do you have a drink containing alcohol?: Monthly or less 2. How many drinks containing alcohol do you have on a typical day when you are drinking?: 1 or 2 3. How often do you have six or more drinks on one occasion?: Never Total Score: 1 NIKA-7 AMB Questionnaire NIKA-7 Date NIKA - 7 assessed: 04/08/24 Feeling nervous, anxious, or on edge: 0 = Not at all Not being able to stop or control worryin = Not at all Worrying too much about different things: 0 = Not at all Trouble relaxin = Not at all Being so restless that it is hard to sit still: 0 = Not at all Becoming easily annoyed or irritable: 0 = Not at all Feeling afraid as if something awful might happen: 0 = Not at all Total NIKA-7 score (0-4 normal; 5-9 mild; 10-14 moderate; 15-21 severe): 0 Source: Developed by Drs. Leon Rangel, Ame Guzman, Jose Maria Moore and colleagues, with an educational ravi from [employer]. Review of Systems Const All systems reviewed & are unremarkable except as noted in HPI and below Eyes Reports no additional complaints Card Reports no additional complaints Resp Reports no additional complaints GI Reports no additional complaints Reports no additional complaints Physical exam (Primary Care) Vital Signs: Last Vital Signs Pulse 51 04/08/24 10:06 BP 114/64 04/08/24 10:06 Pulse Ox 96 04/08/24 10:06 Oxygen Delivery Method Room Air 04/08/24 10:06 BMI result Body Mass Index 28.5 Tobacco/Smoking Status: Tobacco use Status Tobacco use date assessed 04/08/24 04/08/24 10:17 Patient Tobacco Use Status Never used Tobacco 04/08/24 10:17 e-Cigarette/Vaping Use Never Used 04/08/24 10:06 PHQ-9: PHQ-9 Score PHQ-9: Total score 0 04/08/24 10:39 Depression Screening Interpretation: Negative Thrive Assessment: Date of Thrive Assessment Date Thrive assessed 04/08/24 04/08/24 10:19 Const General: no acute distress HENMT Head: Yes normal to inspection Throat: Yes posterior oropharynx normal Resp Effort & Inspection: normal respiratory effort Auscultation: clear to auscultation bilaterally Cardio Rhythm: regular rhythm Heart sounds: S1 normal heart sound present and S2 normal heart sound present GI Inspection: Yes normal to inspection Palpation (GI): Soft to palpation Percussion: Yes normal to percussion Auscultation: normal bowel sounds Assessment and Plan Assessment & Plan (1) OA (osteoarthritis) of shoulder: Comment: florina, Code(s): M19.019 - Primary osteoarthritis, unspecified shoulder Plan: For chronic bilateral shoulder pain patient would like to see an orthopedic to evaluate for a shoulder replacement surgery (2) Tick bite: Code(s): W57.XXXA - Bitten or stung by nonvenomous insect and other nonvenomous arthropods, initial encounter Plan: check Lyme antibody (3) Hyperlipidemia: Code(s): E78.5 - Hyperlipidemia, unspecified Plan: cont statin (4) Hypothyroidism: Code(s): E03.9 - Hypothyroidism, unspecified Plan: cont Levothyroxine Orders: Orders Lyme IgG/IgM w/reflex to WB Today W57.XXXA - Bitten or stung by nonvenomous insect and other nonvenomous arthropods, initial encounter Referrals Orthopedics Referral M19.019 - Primary osteoarthritis, unspecified shoulder Medications: Changed From omeprazole 40 mg PO DAILY 90 caps 0RF To omeprazole 40 mg PO DAILY PRN Coding Level of Care Code Est Pt Level 4 (75423) Diagnoses OA (osteoarthritis) of shoulder M19. Tick bite W57.XXXA Hyperlipidemia E78.5 Hypothyroidism E03.9
== END 2024-04-08 10:42 | disposition home or self-care (01) ==
PROVIDERS: PCP Internal Medicine; Visit Provider Internal Medicine
DX: M19.019 Primary osteoarthritis, unspecified shoulder (principal); W57.XXXA Bitten or stung by nonvenomous insect and other nonvenomous arthropods, initial encounter; E78.5 Hyperlipidemia, unspecified; E03.9 Hypothyroidism, unspecified
CPT/HCPCS: 99214

== ENCOUNTER 2024-05-06 10:37 | Outpatient (REF) | payer MEDICARE, SELFPAY ==
[2024-05-07 16:13] LABS: Lyme Abs Screen <0.90 index
== END 2024-05-06 10:38 | disposition home or self-care (01) ==
LOC: HO.HMGCLDS 10:37
PROVIDERS: PCP Internal Medicine; Visit Provider Internal Medicine
DX: T14.8XXA Other injury of unspecified body region, initial encounter (principal); W57.XXXA Bitten or stung by nonvenomous insect and other nonvenomous arthropods, initial encounter
CPT/HCPCS: 36415; 86617; 86618

== ENCOUNTER 2024-05-19 11:00 | Outpatient (RCR) | payer MEDICARE, SELFPAY ==
[2024-05-13 06:46] VITALS: BP 117/78; PULSE 64; O2SAT 97
--- NOTE | 2024-05-13 08:05 | MHC.PT.EP ---
[facility] [place] Office [place] Office [place] Office [address] [place] [address] [address] [phone] F: [phone] F: [phone] F: [phone] F: [phone] Physical Therapy Plan of Care Date of Evaluation: 05/13/24 Date of Surgery: Diagnosis: This is a 73 yo female presenting to skilled PT with a script for vertigo. Assessment: This is a 73 yo female presenting to skilled PT with a script for vertigo. Patient returns reporting that this past Saturday when she closed her eyes while singing at [employer]ahao[employer] she noticed that she started to get dizzy. She had been gardening that day in the hot sun and did not hydrate. Since then she has been feeling okay, has been hydrating and dancing without increased symptoms. She feels like the heat and hydration are a common factor in her symptoms. Examination shows (+) oculomotor tests with saccades with ML smooth pursuits, (-) VBI B, and normal cervical AROM. She was (-) for BPPV but reported that with L hallpike and L roll test that she felt like symptoms could happen. I treated her with a kurtzer hybrid maneuver and her symptoms felt better. Balance was normal except for some lightheadedness/residual BOSE that was felt throughout the session and mildly increased sway with EC. S/S consistent with ? L PC or HC BPPV and she would benefit from PT 2x/wk for 4wks to address impairments, implement HEP and optimize functional mobility. Frequency and Duration: The patient will be seen 2x/wk for 4wks Short Term Goals: reassess canals [employer] Superintendent Goals: I in HEP Negative in all 6 canals for dizziness and nystagmus Return to normal gait pattern without reports fo LOB due to dizziness Treatment Plan: Modalities to reduce pain, spasms and effusion. Manual therapy to restore motion and function. Therapeutic exercise to improve strength and flexibility. Neuromuscular re-education for posture and balance. Therapeutic activities to return to functional activities of daily living. Electronically signed by: Constance Rogers PT Please sign and return to therapist. Thank you for your referral.
--- NOTE | 2024-07-06 08:34 | MHC.PT.DC ---
[facility] [place] Office [place] Office [place] Office [address] [phone] F: [phone] F: [phone] F: [phone] F: [phone] Physical Therapy Discharge Report Diagnosis: This is a 73 yo female presenting to skilled PT with a script for vertigo. Date of Surgery: Date of Evaluation: 05/13/24 Date of Discharge: 07/06/24 Treatments to Date: 3 Cancellations to Date: 0 No Shows to Date: 0 Discharge Status: Achieved Goals Improved Function Recommend MD Follow-up Discharge Summary: 05/19: Patient without any nystagmus noted with positions however she did have eye lid twitching which I think may be what she feels when her eyes are twitching lately. I will plan to put her on a PT at this time and she will call if symptoms return. Chart was closed after 30 days. Electronically signed by: Constance Rogers, PT Please sign and return to therapist. Thank you for your referral.
== END 2024-07-06 08:35 | disposition home or self-care (01) ==
LOC: HO.PTCHIC 11:00
PROVIDERS: PCP Internal Medicine; Visit Provider Internal Medicine
DX: R42 Dizziness and giddiness (principal)
CPT/HCPCS: 95992; 97110; 97162

== ENCOUNTER 2024-08-21 09:04 | Outpatient (RCR) | payer MEDICARE, SELFPAY ==
[2024-08-21 09:06] VITALS: BP 110/68; PULSE 55
--- NOTE | 2024-08-21 09:51 | MHC.PT.EP ---
[facility] [place] Office [place] Office [place] Office [address] Analilia Smith [address] [phone] F: [phone] F: [phone] F: [phone] F: [phone] Physical Therapy Plan of Care Date of Evaluation: Date of Surgery: Diagnosis: vertigo dizziness and giddiness BPPV Assessment: 74 y/o female presenting to skilled PT with a script for vertigo. She reports feeling pressure in her head and just a little off, therefore she has avoided ballroom dancing. She also feels that she has been dehydrated and feels that is part of it. Examination shows (-) oculomotor tests, (-) VBI B, normal cervical AROM, and good static/ dynamic balance with DGI. She was (-) for BPPV in Loly-Hallpike and Roll Test for sx and nystagmus. At this time, her sx may be from a cold she has had for several weeks causing sx of congestion. Also educated pt that we will keep chart open for 6 weeks in case of recurrence of room-spinning dizziness and will reassess at that time. Pt in agreement. Frequency and Duration: The patient will be seen Short Term Goals: Educated pt that we will keep chart open for 6 weeks in case of recurrence of room-spinning dizziness and will reassess at that time. Goals will be made at that time if pt arrives with dizziness Fpc Goals: Treatment Plan: Modalities to reduce pain, spasms and effusion. Manual therapy to restore motion and function. Therapeutic exercise to improve strength and flexibility. Neuromuscular re-education for posture and balance. Therapeutic activities to return to functional activities of daily living. Electronically signed by: Janna Rodrigues PT Please sign and return to therapist. Thank you for your referral.
--- NOTE | 2024-10-12 14:36 | MHC.PT.DC ---
[facility] [place] Office [place] [facility] [place] Office [address] Analilia Smith [address] [phone] F: [phone] F: [phone] F: [phone] F: [phone] Physical Therapy Discharge Report Diagnosis: vertigo dizziness and giddiness BPPV Date of Surgery: Date of Evaluation: 08/21/24 Date of Discharge: 10/12/24 Treatments to Date: 1 Cancellations to Date: 0 No Shows to Date: 0 Discharge Status: Discharge Summary: D/c chart at this time as it has been open for 6 weeks in case of recurrence of sx. At time of evaluation, she was (-) for BPPV in [facility] and Roll Test for sx and nystagmus. At this time, her sx may be from a cold she has had for several weeks causing sx of congestion. Electronically signed by: Janna Rodrigues PT Please sign and return to therapist. Thank you for your referral.
== END 2024-10-12 14:36 | disposition home or self-care (01) ==
LOC: HO.PTCHIC 09:04
PROVIDERS: PCP Internal Medicine; Visit Provider Internal Medicine
DX: H81.10 Benign paroxysmal vertigo, unspecified ear (principal)
CPT/HCPCS: 97161

== ENCOUNTER 2024-09-17 12:27 | Outpatient (AMB) | payer MEDICARE, SELFPAY ==
[2024-09-17 12:58] VITALS: BP 118/70; PULSE 61; O2SAT 98; BMI 28.3
--- NOTE | 2024-09-17 12:58 | MHC.PC.OV ---
Vital Signs 09/17/24 12:58 Height 5 ft 3 in Weight 160 lb BMI 28.3 BP 118/70 Blood Pressure Location Lt brachial Position Sitting Pulse 61 Pulse Source Pulse Oximeter Pulse Oximetry (%) 98 Oxygen Delivery Method Room Air Intake Visit Reasons: Surgery date 10/01 Intake Note: Pt is here today for pre op visit. Pt is having R should replacement at [facility] on 10/01/24. Allergies brimonidine Allergy (Unknown, Verified 09/17/24 13:02) excessive sleepiness oxycodone Allergy (Unknown, Verified 09/17/24 13:02) nausea, hallucinations Sulfa (Sulfonamide Antibiotics) [SULFA (SULFONAMIDE ANTIBIOTICS)] Allergy (Unknown, Verified 09/17/24 13:02) HIVES timolol Allergy (Unknown, Verified 09/17/24 13:02) lowers blood pressure to dangeous levels Medication List - Last Reconciled 09/17/24 by Melvi Napoles MD cholecalciferol (vitamin D3) 10 mcg PO DAILY levothyroxine 50 mcg PO DAILY omega-3 fatty acids 1,000 mg PO DAILY omeprazole 40 mg PO DAILY simvastatin 20 mg PO BEDTIME Tobacco use date assessed: 09/17/24 Fall risk assessment: No Falls in past year Last assessed Fall Risk: 09/17/24 Dental Screening Dental Screen Date: 09/17/24 Did you have a dental visit in the last 12 months?: Yes Did you have a dental problem in the last 6 months where you did not have access to dental care?: No Was dental information given to patient?: Patient has dentist HPI Surgery date 10/01 HPI Details Pt presents for pre op for R shoulder replacement on 10/01. Hyperlipidemia and hypothyroidism stable on current medications. Patient has been physically active walking every day for at least a half an hour. She complains of 2 days of right-sided lower back discomfort radiating to right buttock and leg worse when sitting for longer time. She denies weakness or numbness in extremities, change in bladder or bowel function. [facility] Medical History HTN (hypertension) Glaucoma Recurrent UTI Subcutaneous cyst Postmenopausal Hyperlipidemia Osteopenia Normal colonoscopy Mammogram normal OA (osteoarthritis) of shoulder Annual physical exam Hypothyroidism Surgical History H/O colonoscopy S/P wrist surgery S/P bilateral hip replacements Family History Mother Mental health disorder Sister Mental health disorder Sister Mental health disorder Sister Mental health disorder Sister Mental health disorder Social History Housing: House Patient Tobacco Use Status: Never used Tobacco e-Cigarette/Vaping Use: Never Used Second Hand Smoke Exposure: No service: No Current occupational status: retired Cognitive needs: No Hearing needs: No Vision needs: Yes Questionnaire PHQ-9 Over the last 2 weeks, how often have you been bothered by any of the following problems? 1. Little interest or pleasure in doing things: nearly every day 2. Feeling down, depressed, or hopeless: not at all 3. Trouble falling or staying asleep, or sleeping too much: not at all 4. Feeling tired or having little energy: not at all 5. Poor appetite or overeating: not at all 6. Feeling bad about yourself - or that you are a failure or have let yourself or your family down: not at all 7. Trouble concentrating on things, such as reading the newspaper or watching television: not at all 8. Moving or speaking so slowly that other people could have noticed. Or the opposite - being so fidgety or restless that you have been moving around a lot more than usual: not at all 9. Thoughts that you would be better off or of hurting yourself in some way: not at all Total score: 3 Depression Screening Interpretation: Negative Depression Screening Done: Yes 63032 - PHQ-9 Billing: Yes Source: Developed by Drs. Leon Rangel, Ame Guzman, Jose Maria Moore and colleagues, with an educational ravi from [employer]. Thrive Questionnaire Date Thrive assessed: 09/17/24 I am a: Patient What is your living situation today?: I have a steady place to live Within the past 12 months, did the food you bought not last and you didn't have the money to get more?: Never true Within the past 12 months, did you worry whether your food would run out before you got money to buy more?: Never true Do you have trouble paying for medicines?: No Do you have trouble getting transportation to medical appointments?: No Do you have trouble paying your heating and electricity bill?: No Do you have trouble taking care of your child, family member or friend?: No Do you have trouble with day-to-day activities such as bathing, preparing meals, shopping, managing finances, etc.?: No Are you currently unemployed and looking for a job?: No Are you interested in more education?: No Please select the resources that you would like help with: None Currently or been in a relationship where the following occur: No concerns reported THRIVE Score: 0 AUDIT C Alcohol Use Questionnaire (AUDIT-C) 1. How often do you have a drink containing alcohol?: 2-4 times a month 2. How many drinks containing alcohol do you have on a typical day when you are drinking?: 1 or 2 3. How often do you have six or more drinks on one occasion?: Never Total Score: 2 NIKA-7 AMB Questionnaire NIKA-7 Date NIKA - 7 assessed: 09/17/24 Feeling nervous, anxious, or on edge: 0 = Not at all Not being able to stop or control worryin = Not at all Worrying too much about different things: 0 = Not at all Trouble relaxin = Not at all Being so restless that it is hard to sit still: 0 = Not at all Becoming easily annoyed or irritable: 0 = Not at all Feeling afraid as if something awful might happen: 0 = Not at all Total NIKA-7 score (0-4 normal; 5-9 mild; 10-14 moderate; 15-21 severe): 0 Source: Developed by Drs. Leon Rangel, Ame Guzman, Jose Maria Moore and colleagues, with an educational ravi from [employer]. NIKA-7 Assessment Billing NIKA-7 Assessment Tool: NIKA-7 Assessment 40378 Review of Systems Card Reports no additional complaints Resp Reports no additional complaints GI Reports no additional complaints Reports no additional complaints Physical exam (Primary Care) Vital Signs: Last Vital Signs Pulse 61 09/17/24 12:58 BP 118/70 09/17/24 12:58 Pulse Ox 98 09/17/24 12:58 Oxygen Delivery Method Room Air 09/17/24 12:58 BMI result Body Mass Index 28.3 Tobacco/Smoking Status: Tobacco use Status Tobacco use date assessed 09/17/24 09/17/24 13:04 Patient Tobacco Use Status Never used Tobacco 09/17/24 13:04 e-Cigarette/Vaping Use Never Used 09/17/24 13:04 PHQ-9: PHQ-9 Score PHQ-9: Total score 3 09/17/24 13:04 Depression Screening Interpretation: Negative Thrive Assessment: Date of Thrive Assessment Date Thrive assessed 09/17/24 09/17/24 13:04 Currently or been in a relationship where the following occur: No concerns reported Const General: no acute distress Eyes General: appearance normal, both eyes and all related structures Resp Effort & Inspection: normal respiratory effort Auscultation: clear to auscultation bilaterally Cardio Rhythm: regular rhythm Heart sounds: S1 normal heart sound present and S2 normal heart sound present GI Inspection: Yes normal to inspection Palpation (GI): Soft to palpation Percussion: Yes normal to percussion Auscultation: normal bowel sounds Back/Spine/Pelvis Other: Paraspinal tenderness lower lumbar region, straight leg rising 90 degrees bilaterally. Deep tendon reflexes 2+ bilaterally Coding Level of Care Code Est Pt Level 4 (58338) Diagnoses OA (osteoarthritis) of shoulder M19.019 Hyperlipidemia E78.5 Hypothyroidism E03.9 Lower back pain M54.50 Additional Codes NIKA-7 Assessment Billing - NIKA-7 Assessment Tool: NIKA-7 Assessment 67925 ([id number]) Assessment & Plan Assessment & Plan (1) OA (osteoarthritis) of shoulder: Comment: Right Code(s): M19.019 - Primary osteoarthritis, unspecified shoulder Category: Medical Plan: EKG showed normal sinus bradycardia no ST-T changes. Patient is medically cleared for right shoulder surgery (2) Hyperlipidemia: Code(s): E78.5 - Hyperlipidemia, unspecified Category: Medical Plan: Continue statin (3) Hypothyroidism: Code(s): E03.9 - Hypothyroidism, unspecified Category: Medical Plan: Continue levothyroxine (4) Lower back pain: Code(s): M54.50 - Low back pain, unspecified Category: Medical Plan: Try baclofen and ibuprofen as needed. lower back exercises were given to the patient. Orders: Orders Basic Metabolic Panel Today M19.019 - Primary osteoarthritis, unspecified shoulder, R73.9 - Hyperglycemia, unspecified Complete Blood Count Auto Diff Today M19.019 - Primary osteoarthritis, unspecified shoulder, R73.9 - Hyperglycemia, unspecified Medications: New baclofen 10 mg PO BEDTIME 10 tabs 0RF Changed From simvastatin 20 mg PO BEDTIME 90 tabs 1RF To simvastatin every other day 20 mg PO BEDTIME
== END 2024-09-17 13:25 | disposition home or self-care (01) ==
PROVIDERS: PCP Internal Medicine; Visit Provider Internal Medicine
DX: M19.019 Primary osteoarthritis, unspecified shoulder (principal); E78.5 Hyperlipidemia, unspecified; E03.9 Hypothyroidism, unspecified; M54.50 Low back pain, unspecified

== ENCOUNTER → 2024-09-17 12:27 | Outpatient (BNVA) | payer MEDICARE, SELFPAY | PROVIDERS: PCP Internal Medicine; Visit Provider Internal Medicine | DX: M19.011 Primary osteoarthritis, right shoulder (principal); E78.5 Hyperlipidemia, unspecified; E03.9 Hypothyroidism, unspecified; M54.50 Low back pain, unspecified; Z79.899 Other long term (current) drug therapy | CPT/HCPCS: 96127; 99212 ==

== ENCOUNTER 2024-09-18 09:57 | Outpatient (REF) | payer MEDICARE, SELFPAY ==
[2024-09-18 13:15] LABS: MANUAL DIFF FLAG NO
[2024-09-18 13:23] LABS: Basophils Percent Auto 0.6 % (0-2); Eosinophils Absolute Auto 0.2 X10*3/uL (0.0-0.4); Eosinophils Percent Auto 4.6 % (0-4); Hematocrit 37.4 % (37.0-47.0); Hemoglobin 12.3 g/dl (12.0-16.0); Imm Gran Abs Auto 0.01 X10*3/uL (0.00-0.03); Imm Gran Pct Auto 0.3 % (0.0-0.4); Lymphocytes Absolute Auto 1.2 X10*3/uL (1.2-4.9); Lymphocytes Percent Auto 36.9 % (20-40); Mean Corpuscular HGB Conc 32.9 g/dl (31.0-35.0); Mean Corpuscular Hemoglobin 31.4 pg (27.0-33.0); Mean Corpuscular Volume 95.4 fL (80.0-98.0); Mean Platelet Volume 9.7 fL (9.4-12.3); Monocytes Absolute Auto 0.2 X10*3/uL (0.1-1.2); Neutrophils Absolute Auto 1.7 x10*3/uL (2.0-8.3); Neutrophils Percent Auto 50.6 % (45-73); Platelet Count 201 X10*3/uL (160-400); Red Blood Count 3.92 X10*6/uL (4.20-5.50); Red Cell Distribution Width 13.3 % (11.0-16.0); White Blood Count 3.3 X10*3/uL (4.8-10.8)
[2024-09-18 13:40] LABS: Anion Gap 11 (12-20); Blood Urea Nitrogen 15 mg/dL (9-16); Calcium 9.1 mg/dL (8.4-10.2); Carbon Dioxide 27 mmol/L (22-29); Chloride 108 mmol/L (96-108); Estimated Glomerular Filt Rate > 60; Glucose Random 99 mg/dL (60-115); Sodium 142 mmol/L (135-145)
== END 2024-09-18 09:58 | disposition home or self-care (01) ==
LOC: HO.HMGCLDS 09:57
PROVIDERS: PCP Internal Medicine; Visit Provider Internal Medicine
DX: M19.019 Primary osteoarthritis, unspecified shoulder (principal); R73.9 Hyperglycemia, unspecified
CPT/HCPCS: 36415; 80048; 85025

== ENCOUNTER 2024-10-12 08:41 | Outpatient (AMB) | payer MEDICARE, SELFPAY ==
--- NOTE | 2024-10-12 08:51 | MHC.OFFWIV ---
Intake Vital Signs 10/12/24 08:57 Height 5 ft 3 in Weight 160 lb BMI 28.3 BP 122/80 Blood Pressure Location Lt brachial Position Sitting Pulse 76 Pulse Source Pulse Oximeter Temp 98.3 F Temp Source Oral Pulse Oximetry (%) 97 Oxygen Delivery Method Room Air Intake Visit Reasons: EP-cough, UTI, insomnia Intake Note: Patient here for cough that has been present for about 1 week now and worsening, she also has UTI symptoms w/back pain and has been having a real hard time sleeping. she is 1 week post op from right shoulder replacement. Patient Tobacco Use Status: Never used Tobacco Allergies brimonidine Allergy (Unknown, Verified 10/12/24 08:56) excessive sleepiness oxycodone Allergy (Unknown, Verified 10/12/24 08:56) nausea, hallucinations Sulfa (Sulfonamide Antibiotics) [SULFA (SULFONAMIDE ANTIBIOTICS)] Allergy (Unknown, Verified 10/12/24 08:56) HIVES timolol Allergy (Unknown, Verified 10/12/24 08:56) lowers blood pressure to dangeous levels Do you need a note to return to daycare/school/sports/work: No HPI HPI Comments History of Present Illness Details Patient is a 74-year-old female who is 1 week postop from her right shoulder surgery complaining of 1 week of a cough as well as burning with urination and low back pain for the last 5 days. She states this is how she feels when she has a UTI. She states she only has a cough and no other upper respiratory symptoms. She is taking Tylenol 500 mg every 8 hours for her shoulder pain. She states she is also not sleeping well. [facility] Medical History HTN (hypertension) Glaucoma Recurrent UTI Subcutaneous cyst Postmenopausal Hyperlipidemia Osteopenia Normal colonoscopy Mammogram normal OA (osteoarthritis) of shoulder Annual physical exam Hypothyroidism Surgical History H/O colonoscopy S/P wrist surgery S/P bilateral hip replacements Family History Mother Mental health disorder Sister Mental health disorder Sister Mental health disorder Sister Mental health disorder Sister Mental health disorder Social History Housing: House Patient Tobacco Use Status: Never used Tobacco e-Cigarette/Vaping Use: Never Used Second Hand Smoke Exposure: No service: No Current occupational status: retired Cognitive needs: No Hearing needs: No Vision needs: Yes Review of Systems Const All systems reviewed & are unremarkable except as noted in HPI and below Physical Exam Vital Signs: Last Vital Signs Temp 98.3 F 10/12/24 08:57 Pulse 76 10/12/24 08:57 BP 122/80 10/12/24 08:57 Pulse Ox 97 10/12/24 08:57 Oxygen Delivery Method Room Air 10/12/24 08:57 BMI result Body Mass Index 28.3 Const General: cooperative, healthy appearing, comfortable, no acute distress and well developed Orientation/consciousness: patient oriented x3 Limitations: no limitations HEENT Head: Yes normal to inspection Ears: hearing grossly normal bilaterally General nose exam: Normal external nose present Face and sinus: Yes normal facial exam Eyes General: appearance normal, both eyes and all related structures Neck Neck: Yes normal visual inspection and Yes full ROM Resp Effort & Inspection: normal respiratory effort and able to speak in complete sentences Skin General skin exam: no rashes or lesions noted Neuro General: patient oriented x3 Extrem General: Yes normal to inspection Results AMB Urinalysis, Automated UA Leukoctes 500 Jocelyn/uL Last Edit by APRIL Galvan on 10/12/24 09:10 UA Nitrite Positive Last Edit by APRIL Galvan on 10/12/24 09:10 UA Urobilinogen 2 mg/dL Last Edit by APRIL Galvan on 10/12/24 09:10 UA Protein 15 mg/dL Last Edit by APRIL Galvan on 10/12/24 09:10 UA pH 8.0 Last Edit by APRIL Galvan on 10/12/24 09:10 UA Blood 200 Lux/uL Last Edit by APRIL Galvan on 10/12/24 09:10 UA Specific Ralston 1.005 Last Edit by APRIL Galvan on 10/12/24 09:10 UA Ketone Negative Last Edit by APRIL Galvan on 10/12/24 09:10 UA Bilirubin 1 mg/dL Last Edit by APRIL Galvan on 10/12/24 09:10 UA Glucose 0 mg/dL Last Edit by APRIL Galvan on 10/12/24 09:10 Results Reviewed Results Reviewed: Laboratory Last Values Urine pH (Auto) 8.0 10/12/24 09:09 Specific Ralston (Auto) 1.005 10/12/24 09:09 Urine Protein (Auto) 15 mg/dL 10/12/24 09:09 Glucose (UA)(Auto) 0 mg/dL 10/12/24 09:09 Urine Ketones (Auto) Negative 10/12/24 09:09 Urine Blood (Auto) 200 Lux/uL 10/12/24 09:09 Urine Nitrite (Auto) Positive 10/12/24 09:09 Urine Bilirubin (Auto) 1 mg/dL 10/12/24 09:09 Urine Urobilinogen (Auto) 2 mg/dL 10/12/24 09:09 Leukocyte Esterase (Auto) 500 Jocelyn/uL 10/12/24 09:09 Assessment & Plan Assessment & Plan (1) Urinary tract infection: Code(s): N39.0 - Urinary tract infection, site not specified Qualifiers: Urinary tract infection type: acute cystitis Hematuria presence: with hematuria Qualified Code(s): N30.01 - Acute cystitis with hematuria Plan: UA positive for nitrites, 3+ leukocyte esterase and 3+ blood. Sent cefuroxime to pharmacy. (2) Cough: Code(s): R05 - Cough Qualifiers: Cough type: acute Qualified Code(s): R05.1 - Acute cough Plan: Vital signs are stable. Cough is likely secondary to intubation for her surgery, sent Alex Salas and recommended ibuprofen for throat pain. Plan see above Orders: Orders AMB Urinalysis Automated Today Z13.9 - Encounter for screening, unspecified Medications: New cefuroxime axetil 500 mg PO Q12H 10 tabs 0RF benzonatate 200 mg PO TID PRN 14 caps 0RF cough Coding Level of Care Code Est Pt Level 4 (06100) Diagnoses Acute cystitis with hematuria N30.01 Urinary tract infection type: acute cystitis Hematuria presence: with hematuria Acute cough R05.1 Cough type: acute
[2024-10-12 08:57] VITALS: BP 122/80; PULSE 76; TEMP 36.8; O2SAT 97; BMI 28.3
== END 2024-10-12 09:46 | disposition home or self-care (01) ==
PROVIDERS: PCP Internal Medicine; Visit Provider Physician Assistant
DX: N30.01 Acute cystitis with hematuria (principal); R05.1 Acute cough; Z13.9 Encounter for screening, unspecified

== ENCOUNTER → 2024-10-12 08:41 | Outpatient (BNVA) | payer MEDICARE, SELFPAY | PROVIDERS: PCP Internal Medicine; Visit Provider Physician Assistant | DX: N30.01 Acute cystitis with hematuria (principal); R05.1 Acute cough | CPT/HCPCS: 81003; 99212 ==

== ENCOUNTER 2024-10-20 08:54 | Outpatient (AMB) | payer MEDICARE, SELFPAY ==
[2024-10-20 09:23] VITALS: BP 124/80; PULSE 60; O2SAT 98; BMI 28.7
--- NOTE | 2024-10-20 09:23 | AM.OFFWIN_ITS ---
Intake Vital Signs 10/20/24 09:23 Height 5 ft 3 in Weight 162 lb 1 oz BMI 28.7 BP 124/80 Blood Pressure Location Lt brachial Position Sitting Pulse 60 Pulse Source Pulse Oximeter Pulse Oximetry (%) 98 Oxygen Delivery Method Room Air Intake Visit Reasons: EP-UTI Patient Tobacco Use Status: Never used Tobacco Allergies brimonidine Allergy (Unknown, Verified 10/20/24 09:30) excessive sleepiness oxycodone Allergy (Unknown, Verified 10/20/24 09:30) nausea, hallucinations Sulfa (Sulfonamide Antibiotics) [SULFA (SULFONAMIDE ANTIBIOTICS)] Allergy (Unknown, Verified 10/20/24 09:30) HIVES timolol Allergy (Unknown, Verified 10/20/24 09:30) lowers blood pressure to dangeous levels Medication List - Last Reconciled 10/20/24 by Yadi Muro MD cholecalciferol (vitamin D3) 10 mcg PO DAILY codeine-guaifenesin 10-100 mg/5 mL 10 mL PO Q4-6H PRN levothyroxine 50 mcg PO DAILY omega-3 fatty acids 1,000 mg PO DAILY omeprazole 40 mg PO DAILY simvastatin 20 mg PO BEDTIME Do you need a note to return to daycare/school/sports/work: No HPI EP-UTI HPI Details Patient is a 74-year-old female came today to be evaluated for bladder infection Patient has been having symptoms since of this month, she was initially evaluated in walk-in clinic when she presented with respiratory infection as well as signs of cystitis She was treated with cefuroxime and benzonatate Patient says that she felt better for few days but now the symptoms are coming back She is having dysuria and frequency There is no back pain there is no nausea no vomiting There is slight suprapubic discomfort UA shows positive leuk esterase 3+ and blood 3+ I am treating her with Levaquin 500 mg once a day for 5 days We will send urine for culture as well. [facility] Medical History HTN (hypertension) Glaucoma Recurrent UTI Subcutaneous cyst Postmenopausal Hyperlipidemia Osteopenia Normal colonoscopy Mammogram normal OA (osteoarthritis) of shoulder Annual physical exam Hypothyroidism Surgical History H/O colonoscopy S/P wrist surgery S/P bilateral hip replacements Family History Mother Mental health disorder Sister Mental health disorder Sister Mental health disorder Sister Mental health disorder Sister Mental health disorder Social History Housing: House Patient Tobacco Use Status: Never used Tobacco e-Cigarette/Vaping Use: Never Used Second Hand Smoke Exposure: No service: No Current occupational status: retired Cognitive needs: No Hearing needs: No Vision needs: Yes Review of Systems Const All systems reviewed & are unremarkable except as noted in HPI and below Physical Exam Vital Signs: Last Vital Signs Pulse 60 10/20/24 09:23 BP 124/80 10/20/24 09:23 Pulse Ox 98 10/20/24 09:23 Oxygen Delivery Method Room Air 10/20/24 09:23 BMI result Body Mass Index 28.7 Const General: no acute distress Orientation/consciousness: patient oriented x3 Eyes General: appearance normal, both eyes and all related structures Resp Effort & Inspection: normal respiratory effort and able to speak in complete sentences Auscultation: clear to auscultation bilaterally General: Yes no CVA tenderness Back/Spine/Pelvis Back: no CVA tenderness Neuro General: patient oriented x3 Psych Mental Status: mental status grossly normal Assessment & Plan Assessment & Plan (1) Acute cystitis with hematuria: Code(s): N30.01 - Acute cystitis with hematuria Plan Patient is a 74-year-old female came today to be evaluated for bladder infection Patient has been having symptoms since 11th of this month, she was initially evaluated in walk-in clinic when she presented with respiratory infection as well as signs of cystitis She was treated with cefuroxime and benzonatate Patient says that she felt better for few days but now the symptoms are coming back She is having dysuria and frequency There is no back pain there is no nausea no vomiting There is slight suprapubic discomfort UA shows positive leuk esterase 3+ and blood 3+ I am treating her with Levaquin 500 mg once a day for 5 days We will send urine for culture as well. Orders: Orders Urine Culture Today N30.01 - Acute cystitis with hematuria Medications: New levofloxacin 500 mg PO DAILY 5 tabs 0RF 5 days Coding Level of Care Code Est Pt Level 3 (19438) Diagnoses Acute cystitis with hematuria N30.01
== END 2024-10-20 10:00 | disposition home or self-care (01) ==
PROVIDERS: PCP Internal Medicine; Visit Provider Internal Medicine
DX: N30.01 Acute cystitis with hematuria (principal); Z13.9 Encounter for screening, unspecified

== ENCOUNTER 2024-10-20 08:54 | Outpatient (REF) | payer MEDICARE, SELFPAY | END 2024-10-20 08:55 | disposition home or self-care (01) | LOC: HO.LNP 08:54 | PROVIDERS: PCP Internal Medicine; Visit Provider Internal Medicine | DX: N30.01 Acute cystitis with hematuria (principal); B96.20 Unspecified Escherichia coli [E. coli] as the cause of diseases classified elsewhere | CPT/HCPCS: 81003; 87086; 87088; 87186; 99212 ==

== ENCOUNTER 2024-11-04 10:25 | Outpatient (REF) | payer MEDICARE, SELFPAY | END 2024-11-04 10:26 | disposition home or self-care (01) | LOC: HO.LAB 10:25 | PROVIDERS: PCP Internal Medicine | DX: N30.01 Acute cystitis with hematuria (principal) | CPT/HCPCS: 81003; 87086; 87088; 87186; 99212 ==

== ENCOUNTER 2024-11-04 10:25 | Outpatient (AMB) | payer MEDICARE, SELFPAY ==
[2024-11-04 10:38] VITALS: BP 112/76; PULSE 78; O2SAT 98; BMI 28.7
--- NOTE | 2024-11-04 10:38 | AM.OFFWIN_ITS ---
Intake Vital Signs 11/04/24 10:38 Height 5 ft 3 in Weight 162 lb BMI 28.7 BP 112/76 Blood Pressure Location Rt brachial Pulse 78 Pulse Source Pulse Oximeter Pulse Oximetry (%) 98 Oxygen Delivery Method Room Air Intake Visit Reasons: EP-uti Patient Tobacco Use Status: Never used Tobacco Allergies brimonidine Allergy (Unknown, Verified 11/04/24 10:38) excessive sleepiness oxycodone Allergy (Unknown, Verified 11/04/24 10:38) nausea, hallucinations Sulfa (Sulfonamide Antibiotics) [SULFA (SULFONAMIDE ANTIBIOTICS)] Allergy (Unknown, Verified 11/04/24 10:38) HIVES timolol Allergy (Unknown, Verified 11/04/24 10:38) lowers blood pressure to dangeous levels Medication List - Last Reconciled 11/04/24 by Yadi Muro MD cholecalciferol (vitamin D3) 10 mcg PO DAILY codeine-guaifenesin 10-100 mg/5 mL 10 mL PO Q4-6H PRN levothyroxine 50 mcg PO DAILY omega-3 fatty acids 1,000 mg PO DAILY omeprazole 40 mg PO DAILY simvastatin 20 mg PO BEDTIME Do you need a note to return to daycare/school/sports/work: No HPI EP-uti HPI Details Chief Complaint The patient reports recurrence of urinary tract infection symptoms following recent antibiotic treatment. History of Present Illness The patient is a 74-year-old female presenting with recurrent urinary tract infections (UTIs). She was last seen on October 20 and was prescribed Levaquin for five days. Symptoms improved during the course of treatment but recurred three days after completing the antibiotics. The patient has a history of difficulty in eradicating UTIs and typically requires prolonged antibiotic therapy. Previous urine cultures identified Escherichia coli as the causative pathogen, which is sensitive to both Levaquin and nitrofurantoin. As background, the patient is known to have an allergy to sulfonamides. She has been evaluated by urology, including a bladder scope, with all findings reportedly negative. Throughout her history with UTIs, the patient experiences typical symptoms, including back pain and mild hematuria, both considered customary for her. New back pain was noted with the recurrence of symptoms. She denies any fever or chills. Today's symptoms echo the pattern of recurrent infections that have intermittently disrupted her life over the years. Plan For the issue of recurrent urinary tract infections, I will prescribe Levaquin for a 10-day course, given its appropriateness for the previously cultured E. coli pathogen. Due to past allergic reactions, sulfonamides will be avoided. If symptoms persist following this course of treatment, a further urology consult will be warranted to explore any underlying causes not previously identified. Additionally, I will ensure this prescription is sent to the patient's pharmacy promptly. [facility] Medical History HTN (hypertension) Glaucoma Recurrent UTI Subcutaneous cyst Postmenopausal Hyperlipidemia Osteopenia Normal colonoscopy Mammogram normal OA (osteoarthritis) of shoulder Annual physical exam Hypothyroidism Surgical History H/O colonoscopy S/P wrist surgery S/P bilateral hip replacements Family History Mother Mental health disorder Sister Mental health disorder Sister Mental health disorder Sister Mental health disorder Sister Mental health disorder Social History Housing: House Patient Tobacco Use Status: Never used Tobacco e-Cigarette/Vaping Use: Never Used Second Hand Smoke Exposure: No service: No Current occupational status: retired Cognitive needs: No Hearing needs: No Vision needs: Yes Review of Systems Const All systems reviewed & are unremarkable except as noted in HPI and below Physical Exam Vital Signs: Last Vital Signs Pulse 78 11/04/24 10:38 BP 112/76 11/04/24 10:38 Pulse Ox 98 11/04/24 10:38 Oxygen Delivery Method Room Air 11/04/24 10:38 BMI result Body Mass Index 28.7 Const General: no acute distress Orientation/consciousness: patient oriented x3 Eyes General: appearance normal, both eyes and all related structures Resp Effort & Inspection: normal respiratory effort and able to speak in complete sentences GI Other: Mild suprapubic discomfort with pressure General: Yes no CVA tenderness Back/Spine/Pelvis Back: no CVA tenderness Neuro General: patient oriented x3 Psych Mental Status: mental status grossly normal Assessment & Plan Assessment & Plan (1) Acute cystitis with hematuria: Code(s): N30.01 - Acute cystitis with hematuria Plan Chief Complaint The patient reports recurrence of urinary tract infection symptoms following recent antibiotic treatment. History of Present Illness The patient is a 74-year-old female presenting with recurrent urinary tract infections (UTIs). She was last seen on October 20 and was prescribed Levaquin for five days. Symptoms improved during the course of treatment but recurred three days after completing the antibiotics. The patient has a history of difficulty in eradicating UTIs and typically requires prolonged antibiotic therapy. Previous urine cultures identified Escherichia coli as the causative pathogen, which is sensitive to both Levaquin and nitrofurantoin. As background, the patient is known to have an allergy to sulfonamides. She has been evaluated by urology, including a bladder scope, with all findings reportedly negative. Throughout her history with UTIs, the patient experiences typical symptoms, including back pain and mild hematuria, both considered customary for her. New back pain was noted with the recurrence of symptoms. She denies any fever or chills. Today's symptoms echo the pattern of recurrent infections that have intermittently disrupted her life over the years. Plan For the issue of recurrent urinary tract infections, I will prescribe Levaquin for a 10-day course, given its appropriateness for the previously cultured E. coli pathogen. Due to past allergic reactions, sulfonamides will be avoided. If symptoms persist following this course of treatment, a further urology consult will be warranted to explore any underlying causes not previously identified. Additionally, I will ensure this prescription is sent to the patient's pharmacy promptly.orts recurrence of urinary tract infection symptoms following recent antibiotic treatment. Medications: Changed From levofloxacin 500 mg PO DAILY 5 days 5 tabs 0RF To levofloxacin 500 mg PO DAILY 10 days 10 tabs 0RF Coding Level of Care Code Est Pt Level 3 (31534) Diagnoses Acute cystitis with hematuria N30.01
--- OUTSIDE RECORDS SUMMARY | 2024-11-10 17:39 | XMS_ITS | Patient Health Record ---
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 Role Phone Melvi Napoles MD Primary Care Provider Rick Couch Jr Unavailable ALLERGIES Allergen (clinical drug ingredient) Drug/Non Drug [...] Problem Colon cancer screening (Z12.11) Active confirmed 023168057 Problem Diverticulosis (K57.90) Active confirmed 781315975 Problem Family history of colon cancer (Z80.0) Active confirmed 596411039 Problem Long-term use of aspirin therapy (Z79.82) Active confirmed 540530850 Problem Long-term current use of high risk medication other than anticoagulant (Z79.899) Active confirmed 472533732 PLAN OF TREATMENT Future Test Test Name Order Date COLONOSCOPY 06/19/2012 COLONOSCOPY 02/20/2017 COLONOSCOPY 08/27/2022 Insurance Providers Payer Name Payer Address Payer Phone Subscriber Number Group Number Insured Name Patient Relationship to Insured Coverage Start Date Coverage End Date MEDICARE OF [place] [address] [place] [id number] YUE COOK Self - patient is the insured [employer] ATT[employer] CLAIMS [address] [place] [phone] [id number] YUE COOK Self - patient is the insured MEDICAL (GENERAL) HISTORY Medical History History ICD Code colonoscopy 04/12/17, negativ e for polyps, five-year followup based on family history glaucoma hypothyroidism hypertension Elevated cholesterol Surgical History Surgery Date(Month/Year) tonsillectomy wrist surgery right hip replacement 09/2016 hip surgery 2020
--- OUTSIDE RECORDS SUMMARY | 2024-11-10 17:39 | XMS_ITS | Data Portability ---
Author Organization [facility] Office Address [address] [facility] [place] [address] Care Team Providers Care Transportation Broker Name Role Phone AYDIN GAYLE Primary Care Provider Assessment Encounter Date Assessment Date Assessment LastModified by Organization Details LastModified Time 05/26/2021 05/26/2021 Diagnostic Imaging: Grashey, axillary, and humerus views of the LEFT shoulder demonstrated moderate/severe glenohumeral DJD, with joint space narrowing, and osteophyte formation. Assessment/Plan: 70-year-old female presents with moderate/severe LEFT glenohumeral DJD. We had a long discussion regarding pertinent anatomy, imaging results, natural progression of the condition, and both non-surgical and surgical options. At this point, Laura has significant arthritis on x-ray, and notes that her pain is beginning to become more frequent, and is affecting her quality of life. We discussed conservative treatment options including pharmacotherapy, and injection therapy, but she is seeking more definitive surgical management, which is reasonable. She is a candidate for reverse shoulder replacement. Risks, benefits, perioperative outcomes and expectations were discussed. We will set up a tentative surgical date, as well as a presurgical appointment with Dr. Madrigal. She can also contact the office if she wishes to have her shoulder injection prior to surgery. All questions were answered, and she is comfortable with this plan. This visit is a wmvn-tf-ewjo visit during the COVID-19 pandemic. Based on my clinical judgment, I felt that this visit could not be provided safely and appropriately via TeleHealth. Based on available information prior to presentation, the patient had a high risk of significant worsening and potential functional impairment affecting ADLs if the visit was not completed today. The patient was seen in the office after following PPE use, Workforce Safety, Patient Safety and Infection Control protocols for all services provided today in accordance with [facility] and CDC Guidelines. There was additional practice expense incurred due to the Public Health Emergency. This additional expense includes but is not limited to: - Additional clinical staff and medical horticultural technical officer time for pre-screening - Time spent reviewing COVID social distancing guidelines, precautions, instructions, and signage - Patient symptom checking upon arrival - Application, removal, and purchasing of additional PPE - Additional cleaning of exam room, equipment, supplies, as well as cleaning supplies for that purpose. This note was dictated with Timmy. Please excuse any errors in spelling/transcri ption, which may have changed the context of the sentence. [email or web address] Not available 05/26/2021 11:57:52 09/18/2021 09/18/2021 Data:X-Ray AP/Grashey Left shoulder-09/18/20 21: Severe glenohumeral osteoarthritis. Complete loss of glenohumeral joint spacing. Early onset erosion of the glenoid. Impression/Plan: 71 year old female here for LEFT shoulder pain. Had a lengthy conversation today with the patient regarding her shoulder. Patient has watched the pre-visit video. Explained to patient in detail the anatomy of a shoulder. Reviewed X-Rays. Reviewed all possible treatment options which include: nothing until pain is unbearable, injections or surgery. Discussed the possible surgical options would be a total shoulder replacement or a reverse shoulder replacement. Discussed optimal treatment outcomes, with realistic healing, pain and range of motion levels post-surgically. Discussed possibility of 1% of cases failing early, within 10 years. Reviewed the seven surgical risks; infection, medical risk factors, dislocation/poppi ng out of socket, implant failure, nerve injury, stress fracture, and the possibility of still having pain. I am mostly concerned about her risk for acromial stress fracture and nerve injury and we discussed these risks in more detail. Reviewed operative and post op healing process. Discussed that patient is allowed to do small movements in front of body and driving usually is allowed within 2-6 weeks, once they are off pain medication and has practiced with family/friends. Patient received a pre-op binder. Based on Laura's radiographs, explained that she is a candidate for shoulder replacement given her arthritic changes and complete loss of joint spacing. However, she is compensating for her shoulder better than the typical consult, as she has well-preserved ROM and is still able to perform most ADLs albeit with some difficulty. While she has started to erode into her glenoid, Laura has plenty of glenoid bone stock remaining. It is not imperative that we address her shoulder immediately, but Laura should f/u yearly to continue to the progression of her glenoid erosion. Ultimately, Laura's three treatment options include leaving her shoulder alone and continuing to supplement with anti-inflammatori es, receiving cortisone injection(s), or opting for shoulder replacement. Given her demographic and glenoid erosion, Laura is a candidate for a reverse replacement, rather than an anatomic replacement. Explained that a reverse replacement will address her pain, but she may continue to experience some limitations in ROM, especially behind her back. Given her current management, urged Laura to hold off on surgery for the time being and continue using her shoulder for whatever actions she tolerates. We will cancel Laura's upcoming surgical date and she should f/u in one year for continued evaluation. She is in agreement with this plan. Given the patient's pain, dysfunction, and advanced degenerative changes, advised against enrollment in a formal physical therapy program, as this will likely exacerbate their shoulder pain. ? I spent a total of 46 minutes on the day of the visit, which includes time spent preparing to see the patient by reviewing records/test results including patient radiographs, obtaining patient history, performing a medically necessary examination, counseling/educat ing the patient on surgical risks, rehabilitation timelines, and continued shoulder care, communicating with other health professionals including Urbano Hampton's clinical notes, coordinating patient care, and documenting information in the EHR? The patient completed the COVID-19 screening handout and was deemed healthy to move forward with this appointment. This visit is a bzta-or-zcfr visit during the COVID-19 pandemic. Based on my clinical judgment, I felt that this visit could not be provided safely and appropriately via TeleHealth. Based on available information prior to presentation, the patient had a high risk of significant worsening and potential functional impairment affecting ADLs if the visit was not completed today. The patient was seen in the office after following PPE use, Workforce Safety, Patient Safety and Infection Control protocols for all services provided today in accordance with [facility] and CDC Guidelines. There was additional practice expense incurred due to the Public Health Emergency. This additional expense includes but is not limited to: * Additional clinical staff and medical horticultural technical officer time for pre-screening * Time spent reviewing COVID social distancing guidelines, precautions, instructions, and signage * Patient symptom checking upon arrival * Application, removal, and purchasing of additional PPE * Additional cleaning of exam room, equipment, supplies, as well as cleaning supplies for that purpose. [email or web address] Not available 09/18/2021 11:23:07 Plan of Treatment Reminders Order Date Submit Date Provider Last Modified By Organization Details Last Modified Time Details Appointments None record ed. Lab None record ed. Referral None record ed. Procedures None record ed. Surgeries None record ed. Imaging None record ed. Medication Orders None record ed. Patient TargetsNo targets recorded. Patient InstructionsNo instructions recorded. Reason for Referral None Reported. Results Created Date Observation Date Name Description Value Unit Range Abnormal Flag Note LastModifiedBy Organization Detail LastModifiedTime 05/26/20 21 05/26/2021 xr humer us left 2 views minim um Fin al Report EXAM#: [id number] PROCED URE: DXR 0093 XR HUMERU S LEFT 2 VIEWS MINIMU M May 26 2021 10:24A M CLINIC AL INDICA TION: pain in left should er Severe degene rative change s are presen t of the glenoh umeral joint with comple te loss of the joint space, subcho ndral cyst format ion, and margin al osteop hyte format ion. Degene rative change s are presen t of the acromi oclavi cular joint. NUMBER OF IMAGES : 1 Report ed by : SUPA PATEL M.D. On: May 26 2021 10:51A Signed by: SUPA PATEL M.D. On: May 26 2021 10:51A [email or web address] [facility] [address] [facility], [place], [address], 05/26/2021 13:29:40 05/26/20 21 05/26/2021 XR, teresa nabil, 2 or more view Fin al Report EXAM#: [id number] PROCED URE: DXR 0145 XR SHOULD ER LEFT 2 VIEWS May 26 2021 10:24A M CLINIC AL INDICA TION: pain in left should er Severe degene rative change s are presen t of the glenoh umeral joint with comple te loss of the joint space, subcho ndral cyst format ion, and margin al osteop hyte format ion. Degene rative change s are presen t of the acromi oclavi cular joint. NUMBER OF IMAGES : 2 Report ed by : SUPA PATEL M.D. On: May 26 2021 10:51A Signed by: SUPA PATEL M.D. On: May 26 2021 10:51A [email or web address] [facility] [address] [facility], [place], [address], 05/26/2021 13:29:40 09/18/2009/18/2021 teresa TEJADA [email or web address] [email or web address] [email or web address] ocesso [email or web address] ?CMD=O PENSTU DY&ACC ESSION =[id number] [facility] [address], [address], 09/18/2021 11:46:23 09/18/2009/18/2021 jud TEJADA [email or web address] ntegra tionPr ocesso [email or web address] ?CMD=O PENSTU DY&ACC ESSION =[id number] [facility] [address], [address], 09/18/2021 11:46:24 Result Notes None recorded. Problems Name Problem SNOMED Code Status Onset Date Resolution Date Notes Provider Name and Address Organization Details Recorded Time Localized , primary osteoarth ritis of the shoulder region 594496635 Active 2020 IZAIAH GOTTLIEB [address] [place] [address], [address] , [facility] 11:57:14 History of operation on musculosk eletal system 628749296 Active 2018 History of musculosk eletal operation Not Available [facility] 2 01:04:36 Localized , primary osteoarth ritis of the pelvic region and thigh 037349006 Active 2015 Localized , primary osteoarth ritis of the pelvic region and thigh Loc alized, primary osteoarth ritis of the pelvic region and thigh Not Available [facility] 2 01:04:36 Patient encounter status 388732463 Active 2015 Not Available [facility] 2 01:04:37 History of artificia l joint 627305474 Active 2018 History of artificia l joint Not Available [facility] 2 01:04:37 Trochante wali bursitis of right hip 32943487427 9100 Active 2018 Not Available [facility] 2 01:04:37 Notes:Problem Name: Total hi p replacement Prosthesis Problem Code: 420230539 Problem Code Type: SNOMED Status: Active Start_Date: 11/02/2016 - Problem Notes None recorded. Procedures Surgical History Date Name Laterality Status Provider Name and Address Organization Details Recorded Time 09/01/20 19 Orthopaedic Surgery completed Ana Laura Fernandez [facility] 05/26/2021 10:59:12 09/16/20 17 Orthopaedic Surgery completed Mally Apodaca [facility] 09/18/2021 10:55:34 12/02/19 06 Orthopaedic Surgery completed Mally Apodaca [facility] 09/18/2021 10:55:59 Imaging Results Imaging Date Name Status [facility]Modified by [facility] Details LastModified Time 05/26/2021 xr humerus left 2 views minimum completed [address] [facility] [address] [place], [address], 05/26/2021 13:29:40 05/26/2021 XR, shoulder, 2 or more view completed [address] [facility] [address] [place], [address], 05/26/2021 13:29:40 09/18/2021 XR, shoulder completed [address] [facility] [address] [place] [address], [address], 09/18/2021 11:46:23 09/18/2021 XR, humerus completed [email or web address] [facility] [address] [place], [address], 09/18/2021 11:46:24 Procedure Notes None recorded. Medical Equipment None Reported. Allergies Allergen ID Allergen Name Allergen Category Reaction Reaction Severity Criticality Documentation Date Start Date Code Code System Note Provider Name and Address Organization Details Recorded Time 288193 Substance with sulfonami de structure and antibacte rial mechanism of action (substanc e) medicatio n Not available Not available Not available 05/26/2021 16851 8003 SNOMED Ana Laura Fernandez [facility] 10:56:24 386928 timolol medicatio n Not available Not available Not available 05/26/2021 45801 RxNorm Mally Constanza [facility] 10:53:31 915403 hydrocodo ne Not available Not available Not available Not available 05/26/2021 5489 RxNorm Ana Laura Fernandez [facility] 10:56:48 300352 brimonidi ne medicatio n Not available Not available Not available 09/18/2021 58680 5 RxNorm eye drops Mally Constanza [facility] 10:53:22 209819 Sulf-10 medicatio n Not available Not available Not available 08/13/2022 38121 2 RxNorm React ion: Unkno wn, sever ity: Unkno wn Not Available [facility] 2 01:46:38 Medications Name Sig Start Date Stop Date Status Note LastModified by Organization Details LastModified Time amoxicillin 500 mg capsule 4 capsules Orally 1 hour pre-denta l procedure 2018 active Not Available Not Available Not Avai lable metronidazo le 500 mg tablet 09/18 completed Not Available Not Available Not Available omeprazole 40 mg capsule,del ayed release 09/17 completed Not Available Not Available Not Available levothyroxi ne 50 mcg tablet 2020 active Not Available Not Available Not Avai lable simvastatin 20 mg tablet 2020 active Not Available Not Available Not Avai lable fluticasone propionate 50 mcg/actuati on nasal spray,suspe nsion USE 2 SPRAYS IN EACH NOSTRIL DAILY UNTIL SYMPTOMS IMPROVE FOR ALLERGIES CONGESTIO N OR IRRITATIO N 05/26 completed Not Available Not Available Not Available azithromyci n 500 mg tablet TAKE 1 TABLET BY MOUTH EVERY DAY FOR 5 DAYS 05/26 completed Not Available Not Available Not Available nitrofurant oin monohydrate /macrocryst als 100 mg capsule 09/18 completed Not Available Not Available Not Available Vitamin C active Not Available Not Kisha ilable Not Available Fish Oil 2020 active Not Available Not Available Not Avai lable Vitamin D3 active Not Available Not Av ailable Not Available latanoprost active Not Available Not A vailable Not Available multivitami n 2020 active Not Available Not Available Not Avai lable Alphagan P 0.1 % eye drops 2020 active Not Available Not Available Not Avai lable Rocklatan 0.02 %-0.005 % eye drops 09/17 completed Not Available Not Available Not Available Vitals Date Recorded Body height Body mass index (BMI) Body weight Provider Name and Address Organization Details Last Updated DateTime 05/26/2021 162.56 cm 26.6 kg/m2 58638.82 g Ana Laura Fernandez [facility] 05/26/2021 10:56:15 Date Recorded Body height Body mass index (BMI) Body weight Provider Name and Address Organization Details Last Updated DateTime 09/18/2021 162.56 cm 27.8 kg/m2 93672.96 g Malyl Apodaca [facility] 09/18/2021 10:55:11 Social History Question Answer Notes LastModified by Organizat ion Details LastModified Time Tobacco Smoking Status Never [facility] 05/26/2021 10:58:16 What Is Your Level Of Alcohol Consumption? Occasional 1-2/week Information not available 05/26/2021 Auto Related Injury? No Information not available 09/18/2021 What Is Your Level Of Caffeine Consumption? Occasional Information not available 09/18/2021 Do You Or Have You Ever Used E-cigarettes Or Vape? Never Used Electronic Cigarettes Information not available 05/26/2021 What Is Your Occupation? Retired Information not available 05/26/2021 Have You Had Cortisone? No Information not available 05/26/2021 Do You Or Have You Ever Used Smokeless Tobacco? Never Used Smokeless Tobacco Information not available 05/26/2021 How Much Tobacco Do You Smoke? No Information not available 09/18/2021 What Types Of Sporting Activities Do You Participate In? Walking Information not available 05/26/2021 Work Related Injury? No Information not available 09/18/2021 Sex: Unknown Functional Status Question Answer Note LastModified by Organization D etails LastModified Time What is your exercise level? Moderate Information not available 05/26/2021 Mental Status None recorded. Family History Relationship Description Onset Age of this Age Resolved Age Notes LastModified by Organization Details LastModified Time Father No current problems or disability Not available 05/26 10:58:06 Mother No current problems or disability Not available 05/26 10:58:06 Medical History Condition Response Blood Clots / Phlebitis N Heart Problems N HIV or AIDS N High Blood Pressure N Depression or Anxiety N MRSA Y Emphysema / Chronic Bronchitis N Any Other Significant Medical Issues Y Reaction to General/Local Anesthesia N Hepatitis / Jaundice N Weight Gain / Loss Y Kidney / Bladder Infections Y Diabetes N Bleeding Disorder N Hearing Loss Y Angina, Heart Failure or Attack N Night Sweats N Seizures / Epilepsy N Osteoarthritis / Rheumatoid arthritis / Other Y Cancer N Stroke N Chemical Dependency / Alcoholism N Ulcer / Stomach Bleeding / Indigestion N Visual Loss or Glaucoma Y Psoriasis / Skin Rash N Thyroid Disorder Y Heart Disease N Asthma / Shortness of Breath / Sleep Bracelet Former ea (please specify) N Pulmonary Embolism N Gynecological HistoryNo gynecological history recorded. Obstetrics History GPAL:G 0 P 0 0 0 0 Immunizations Vaccine Type Date Status Provider Name and Address Organization Details Recorded Time SARS-COV-2 (COVID-19) vaccine, UNSPECIFIED 01/10/2021 completed Ana Laura gloria [place] [facility] 05/26/2021 10:57:54 SARS-COV-2 (COVID-19) vaccine, UNSPECIFIED 02/07/2021 completed Ana Laura gloria [place] [facility] 05/26/2021 10:57:58 Past Encounters Encounter ID Performer Location Encounter Start Date Encounter Closed Date Diagnosis/Indication Diagnosis SNOMED-CT Code Diagnosis ICD10 Code [id number] IZAIAH GOTTLIEB [place] [facility] [address] [place] [address],[facility] [address] [place] [address] 05/26/2021 10:04:54 05/29/2021 08:01:09 Localized, primary osteoarthritis of the shoulder region 723518583 M19.012 [id number] RIO MADRIGAL MD [place] [facility] [address] [place] [phone] 09/18/2021 10:32:52 09/18/2021 11:27:22 Localized, primary osteoarthritis of the shoulder region 910198353 M19.012 Health Concerns Section Related Observation LastModified by Organization Detai ls LastModified Time None Recorded Concern Status LastModified by Organization Details LastModified Time None Recorded Advance Directives Directive None Recorded Payers Encounter Date Sequence Insurance Name Policy Number Policy Harris Covered Member ID Harris Member ID Guarantor Name 05/26/2021 1 [place]: [facility] [employer] Laura Adiel Alina [id number] Laura [facility] 05/26/2021 2 [facility]IC[place] SU[place]LE[place] [id number] Laura Adiel Alina [id number] Laura [facility] 09/18/2021 1 [place] [employer] Laura Adiel Ripa [id number] Laura 09/18/2021 2 [facility]LE[place]) [id number] Laura Adiel Ripa [id number] Laura [facility] Notes Date Note Type Note Provider Name and Address Organization Details Recorded Time 05/26/2021 text/html 70-year-old llroa-bwrd-bowmmqz t female presents with chief complaint LEFT shoulder pain. She notes the pain increases with activity, and overhead motions. She has difficulty with certain ADLs such as dressing herself, doing her hair, putting her bra to her shoulder pain. Pain is rated 3/10, function 50%. She notes that previously, she was able to control most of her pain with gluten-free diet, and fish oil, but notes that more recently, her pain increases with any activity, despite her diet and fish oil intake. She has not had any cortisone injections. She notes that she unfortunate how to watch her mother deal with significant shoulder arthritis, which went untreated, now she has difficulties with ambulating with a walker. She notes that her shoulder pain is affecting her quality of life, and she presents today to discuss further treatment options. IZAIAH GOTTLIEB [address] [place], [address], [facility] 05/26/2021 11:58:02 09/18/2021 text/html 71 year old mamta hampton here for LEFT shoulder pain. She last saw Urbano on 05/26/2021. She is joined by her daughter, Martha Finch. Laura notes her shoulder pain began about 20 years ago. Her shoulder would be painful with activity, but would be aleviated by rest. Recently, she notes significant impairment with activity. While her active ROM is quite good, she often locks up in certain motions and must manipulate with her other arm to get it out of these positions. As of late, she has been experiencing higher pain levels, but she attributes this to increased activity level (gardening, cleaning around her home, etc.) She supplements with 6mg Ibuprofen twice daily. Her right shoulder is also becoming increasingly painful due to compensation. She feels she could live with her shoulder at this time, but would rather address the issue at the source, rather than prolong it. {{He She*}} rates {{his her*}} pain at a {{ 3#}}. {{His Her*}} ASES score is {{ 64#}}. {{His Her*}} SANE is {{ 52#}}. RIO MADRIGAL MD [address] [facility], [place], [address], [facility] 09/20/2021 10:48:50 OBGyn Episode No OBEpisode recorded.
--- OUTSIDE RECORDS SUMMARY | 2024-11-10 17:40 | XMS_ITS ---
[facility] Address [address] [facility] [place] [address] Care Team Providers Care Oxygen Equipment Preparer Name Role Phone Melvi Napoles MD Primary Care Provider Lu Falk Unavailable [phone] Allergies Allergen (clinical drug ingredient) Drug/Non Drug Allergy documented on EMR Reaction Allergy Type Onset Date Status sulfamethoxazole / trimethoprim Bactrim Unknown Drug Allergy Active codeine Codeine Unknown Drug Allergy Active REASON FOR VISIT PCP: 05/2023, Ingrown Nail, Fungal Nails Medications Medication SIG (Take, Route, Frequency, Duration) Notes Start Date End Date Status Levothyroxine Sodium 50 MCG Oral for 90 Days Active Rocklatan 0.02-0.005 % Ophthalmic for 90 Days Active Alphagan P 0.1 % Ophthalmic for 90 Days Active Omeprazole 40 MG Oral for 90 Days Active Multivitamin 06/28/2023 Active Simvastatin 20 MG Oral for 90 Days Active Social History Tobacco Use: Social History Observation Description Date Details (start date - stop date) Never Smoker NA - NA Tobacco Use/Smoking Question Answer Notes Are you a: nonsmoker Additional Findings: Tobacco Non-User Current no n-smoker Alcohol Screen Question Answer Notes Did you have a drink containing alcohol in the p ast year? Yes Points 0 Interpretation Negative Tobacco use other than smoking: Question Answer Notes Are you an other tobacco user? No Vital Signs Height 5 ft 3 in in 07/16/2023 Weight 163 lbs 07/16/2023 BMI 28.87 kg/m2 07/16/2023 Encounters Encounter Location Date Provider Diagnosis [facility] [address] [place] [address] 07/16/2023 Lu Frederick Fungal infection of nail B35.1 and Ingrown nail L60.0 Assessments Encounter Date Diagnosis (ICD Code) Assessment Notes Treatment Notes Treatment Clinical Notes Section Notes 07/16/2023 Fungal infection of nail (ICD-10 - B35.1) 07/16/2023 Ingrown nail (ICD-10 - L60.0) Plan Of Treatment Next Appt Details Follow Up: prn, Reason: Progress Notes * Laura COOKDOB: 8 (73 yo F)Acc No.[id number]:07/16/2023 Progress Notes Patient:?Laura Cook Provider:?Lu Frederick DPM :1950???Age:73 Y???Sex:Female D ate:07/16/2023 Address:[address] [place], [place] [address] Pcp:Melvi Naploes MD Subjective: * Chief Complaints: * ??? PCP: 05/2023Ingrown Nail Fungal Nails * HPI: ???Painful Nails:?Nature:?aching, tender, discolored, thick.?Location:?Great toe Both feet.?Duration:?several years.?Course:?worse.?Aggrevated by:?shoegear causing difficulty standing/walking.?Treatments:?none.? * ROS:?General/Constitutional:?Nausea?denies.?Vomiting?denies.?Hunger Thirst?denies.?Loss appetite?denies.?Chills?denies.?Fatigue?denies.?Fever?denies.?Night Sweats?denies.?Unexplained weight loss?denies.?Unexplained weight gain?denies.?HEENTM:?Dentures?denies.?Dizziness?denies.?Glasses/contacts?admits.?Retinopathy?de nies.?Blurred/double vision?denies.?TMJ?denies.?Discharge/drainage?denies.?Implants?denies.?Sore throat?denies.?Dental implants?denies.?Hard of hearing ?denies.?Difficulty chewing/swallowing/speaking?denies.?Nose bleeds?denies.?Sore mouth?denies.?Respiratory:?On Oxygen?denies.?Pneumonia/pleurisy?denies.?Bronchitis?denies.?Emphysema?denies.?C oughing?denies.?Cough blood?denies.?Shortness of breath?denies.?Wheezing?denies.?Cardiovascular:?Pacemaker?denies.?MVP?denies.?WPW?denies.?CHF?denies.?Heart attack?denies.?Septal defect?denies.?Rapid beat?denies.?Chest pain ?denies.?Atrial Fib.?denies.?Murmur/Palpitations?denies.?Gastrointestinal:?Hemorrhoids?denies.?Stomach/Abdominal pain?denies.?Dark blood stool?denies.?Irritable bowel ?denies.?Constipation?denies.?Diarrhea?denies.?Hematology:?Swelling?denies.?Clots?denies.?Varicose Veins?denies.?Bruising?denies.?Bleeding problem?denies.?Genitourinary:?Blood urine?denies.?Frequent/Painfu/urination/bladder control?denies.?Kidney stones?denies.?Infection (UTI)?denies.?Nephropathy?denies.?sex trans dis (STD)?denies.?Prostate?denies.?Musculoskeletal:?Hammertoes?denies.?Bunions?denies.?Back Pain?denies.?Muscle Cramps/ Resting?denies.?Muscle cramps / walking?denies.?Generalized aches and pains?denies.?Weakness?denies.?Integ.:?Yeager?denies.?Scars?denies.?Corns/calluses?denies.?Ingrown nails?denies.?Painful nails?denies.?Open Sores?denies.?Rashes?denies.?Neurologic:?Difficulty sleeping?denies.?Brain disorder?denies.?Numbness?denies.?Balance trouble?denies.?Confusion?denies.?Fainting/blackouts?denies.?Tingling?denies.?Tr emors?denies.? * Medical History:? * Surgical History:?tonsillect tavo 1954wrist surgery 2018hip replacement 2019 * Hospitalization/Major Diagno stic Procedure:?Denies Past Hospitalization * Family History:?Mother: dece ased, kidney/liver disease, diagnosed with Family history of arthritis, Unspecified essential hypertension, Unspecified heart disease, Other malignant neoplasm of unspecified site. Father: , diagnosed with Family history of arthritis, Unspecified essential hypertension.?Paternal Grand Mother: diagnosed with Diabetic - NIDDM.? * Social History:?Tobacco Use:?Tobacco Use/Smoking?Are you a:?nonsmoker ?Additional Findings: Tobacco Non-User?Current non-smoker ?Tobacco use other than smoking?Are you an other tobacco user??No ???Drugs/Alcohol:?Drugs?Have you used drugs other than those for medical reasons in the past 12 months??No ?Alcohol Screen?Did you have a drink containing alcohol in the past year??Yes ?Points?0 ?Interpretation?Negative ???Miscellaneous:?no Caffeine. ?Children: yes, 4. ?Marital status: . * Medications:?TakingLevothyro xine Sodium 50 MCG Tablet Oral Simvastatin 20 MG Tablet Oral Omeprazole 40 MG Capsule Delayed Release Oral Alphagan P 0.1 % Solution Ophthalmic Rocklatan 0.02-0.005 % Solution Ophthalmic Multivitamin Medication List reviewed and reconciled with the patientTaking Levothyroxine Sodium 50 MCG Tablet Oral Taking Simvastatin 20 MG Tablet Oral Taking Omeprazole 40 MG Capsule Delayed Release Oral Taking Alphagan P 0.1 % Solution Ophthalmic Taking Rocklatan 0.02- 0.005 % Solution Ophthalmic Taking Multivitamin Medication List reviewed and reconciled with the patient * Allergies:?BactrimCodeineyes [Allergies Verified] Objective: * Vitals:?Ht: 5 ft 3 in, Wt:16 3, BMI:28.87, Shoe size:7, Ht-cm: 160.02 cm, Wt-k.94 kg. * Examination: ???General Examination: ?GENERAL APPEARANCE:?Reveals a pleasant, alert, well-nourished, well- developed, well hydrated individual, who demonstrates proper attention to hygiene/body habitus, and is in no acute distress, Pt serves as own?historian for office visit today.?ORIENTED:?person, place, and time.?Neurological: ?SENSORY:?Neurological exam reveals intact sensorium, pain sensation normal, vibration sensation intact, pinprick sensation is normal in the lower extremities, Pt denies, anesthesia, burning, paresthesia, tingling, B/L.?DEEP TENDON REFLEXES:?Achilles, 2/4, B/L.?Vascular: ?DP PULSES:?3/4, B/L.?PT PULSES:?3/4, B/L.?CAPILLARY FILL TIME:?immediate, all digits, B/L.?SKIN TEMPERTURE GRADIENT OF THE LOWER EXTERMITIES:?warm to cool, proximal to distal, B/L.?HAIR GROWTH/TEXTURE/ELASTICITY/TURGOR:?normal, B/L.?PIGMENTATION:?normal, B/L.?EDEMA:?absent, B/L.?Dermatologic: ?SKIN FINDINGS:?Skin exam reveals normal texture, elasticity, and turgor. There are no masses. The interspaces are clear.?Orthopedic: ?MUSCLE STRENGTH:?5/5 all groups in a symmetrical fashion , B/L.?Ingrown Nail: ?INSPECTION:?Reveals nail incurvation, NO pain on palpation, groove hypertrophy Bilateral nail borders T5.?Nails: ?NAILS are:?Elongated, overgrown, dystrophic, lytic, greater than 3mm thick, discolored and friable with crumbly malodorous subungual debris, with pain on palpation TA T5.? 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 Plan: * Treatment: * Procedure Codes:? * Preventive Medicine:? ??Counseling:?Discussion:?-03: Office or other outpatient visit for the evaluation and management of a new patient, which required a medically appropriate history and/or examination and LOW level of DECISION MAKING for: 1 STABLE ACUTE UNCOMPLICATED PROBLEM, 2 OR MORE MINOR PROBLEMS, OR 1 STABLE CHRONIC PROBLEM, THAT POSE(S) A LOW RISK FOR MORBIDITY/MORTALITY. The visit on the day of the encounter encompassed interpreting the data and educating the patient as to the nature of their condition, treatment options available according to their individual PMH, meds, allergies, and overall health/living conditions, as well as any potential risks or complications that may occur from a failure to adhere to, and participate in, the recommended course of therapy. The discussion included a complete verbal, and/or written explanation of the examination results, any x-rays taken, the proposed diagnosis, and outline of the treatment plan. A schedule for future care needs was also explained. The patient verbalized an understanding of the instructions at this time and agreed to be an active participant in their treatment. If the patient should think of any questions or concerns after the visit, I have encouraged the patient to call the office.?Abscess/Paraonychia/Ingrown Nails:?We discussed the possible etiologies (genetic, improper nailcare, shoegear, nail trauma) which may lead to ingrown nails and/or paronychial infections. We discussed and reviewed palliative/nonsurgical/deferring definitive treatment (vs) undergoing the treatment procedures of nail avulsion(s) or PNA, which may prevent recurrence and give more lasting results. The possible risks/complications such as worsened condition/delayed healing/nonhealing/failure/recurrence/infection, the potential benefits/advantages of decreased pain/deformity, as well as alterative treatment options including applying nail softening agents/nailgroove packing were discussed. No guarantees were given regarding any outcome for any procedure. The patient was educated in the length of time for the affected nail to regrow once completely healed from a nail avulsion procedure. Once the condition has completely healed, the patient was consulted on proper nailcare. Patient questions such as details of each procedure, varying time to heal, activity post procedure, and shoegear were discussed and the answers were verbally confirmed fully understood.?Fungal Nail Counseling:?The patient was counseled on the diagnosis, potential etiologies (including, but not limited to, environmental factors, genetic, immune deficiency), and the multiple treatment options for Onychomycosis. We discussed the risks and benefits of each option from performing no treatment, to ultraviolet light shoe treatment, to laser nail treatment, to applying topical antifungals, to taking oral antifungal medication, to surgical removal of the involved nail(s) with or without performing a matricectomy, or any combination thereof. We discussed the advantages and disadvantages of each of possible treatment and importance for adherence to all the recommended therapies for optimum success. This includes the necessity for weekly emery board self nail home debridements, and control the nail and skin environment as much as possible by only using a fresh, dry pair of shoes/socks each day, as well as keeping the skin as dry as possible through the use of sprays/powders if necessary. The patient was instructed to discard the emery board after use to prevent reinfection of the involved nail(s). We discussed the mycological and visual clinical effectiveness of topical vs oral antifungal treatments as well as each ones potential side effects and/or any patient- specific medication interactions. We discussed the reasons behind the important requirement of regular liver function testing with oral antifungal therapy for safety. Patient questions regarding use, dosage, successful outcomes, blood tests, and possible pharmaceutical interactions were reviewed and the patient verbalized that all answers were clearly understood, The Pt prefers topical treatment, Formula 7 was dispensed with instructions for use.?Verruca/benign lesion Surgery:?.? * Follow Up:?prn * Images: * Sign off status: Completed true * Provider:?Lu Frederick, DPM Date:? Generated for [place] ornelas/[place]udson/Leland on:?11/10/2024 05:39 PM EST History and Physical Notes * HPI (History of Present Illness) Category Sub-Category Detail Notes Category Not es Painful Nails Aggravated by: shoegear causing difficulty standing/walking Course: worse Duration: several years Location: Great toe Both feet Nature: aching, tender, disc olored, thick Treatments: none Examination Category Sub-Category Detail Notes Category Not es Ingrown Nail INSPECTION: Reveals nail inc urvation, NO pain on palpation, groove hypertrophy Bilateral nail borders T5 Neurological SENSORY: Neurological exa m reveals intact sensorium, pain sensation normal, vibration sensation intact, pinprick sensation is normal in the lower extremities, Pt denies, anesthesia, burning, paresthesia, tingling, B/L DEEP TENDON REFLEXES: Achilles, 2/4, B/L Dermatologic SKIN FINDINGS: Skin exam reveal s normal texture, elasticity, and turgor. There are no masses. The interspaces are clear Orthopedic MUSCLE STRENGTH: 5/5 all groups in a symm etrical fashion , B/L General Examination GENERAL APPEARANCE: Reveals a pleasant, alert, well- nourished, well-developed, well hydrated individual, who demonstrates proper attention to hygiene/body habitus, and is in no acute distress, Pt serves as own historian for office visit today ORIENTED: person, place, and t susu Vascular DP PULSES(B): 3/4, B/L PT PULSES(B): 3/4, B/L CAPILLARY FILL TIME: immediate, all digi ts, B/L TEMPERTURE GRADIENT(C): warm to cool, pr oximal to distal, B/L TROPHIC CONDITION-TEXTURE/ELASTICITY/TURGOR/HAIR GROWTH(B): normal, B/L EDEMA(C): absent, B/L PIGMENTATION: normal, B/L Nails NAILS are: Elongated, overg rown, dystrophic, lytic, greater than 3mm thick, discolored and friable with crumbly malodorous subungual debris, with pain on palpation TA T5
--- OUTSIDE RECORDS SUMMARY | 2024-11-10 17:40 | XMS_ITS ---
[facility] Address [address] [facility] [place] [address] Care Team Providers Care Pattern Illustrator Name Role Phone Melvi Napoles MD Primary Care Provider Lu Falk [phone] REASON FOR VISIT formula 7 Encounters Encounter Location Date Provider Diagnosis [facility] [address] [place] [address] 12/25/2023 Lu Frederick Plan Of Treatment No Information Progress Notes * Laura COOKDOB: 8 (73 yo F)Acc No.[id number]:12/25/2023 Patient:?Laura Cook :1950???Age:73 Y???Sex:Female Address:[address] [place] [address] * true * Date:? Generated for Yogeshi ceci/[place]udson/eTransmitting on:?11/10/2024 05:39 PM EST
--- OUTSIDE RECORDS SUMMARY | 2024-11-10 17:40 | XMS_ITS ---
[facility] Address [address] [facility] [address] Care Team Providers Care Quality Eng Name Role Phone Melvi Napoles MD Primary Care Provider Lu Falk [phone] REASON FOR VISIT Formula 7 Encounters Encounter Location Date Provider Diagnosis [facility] [address] [place] [address] 07/16/2023 Lu Frederick Plan Of Treatment No Information Progress Notes * Laura COOKDOB: 8 (73 yo F)Acc No.[id number]:07/16/2023 Patient:?Laura Cook :1950???Age:73 Y???Sex:Female Address:[address] [place] [address] * true * Date:? Generated for Printi ceci/[place]udson/eTransmitting on:?11/10/2024 05:39 PM EST
--- OUTSIDE RECORDS SUMMARY | 2024-11-10 17:40 | XMS_ITS | Patient Health Record ---
Author Organization [facility] Address [address] [facility] [place] [address] Care Team Providers Care Clinic Administrator Name Role Phone Melvi Napoles MD Primary Care Provider Lu Falk Unavailable [phone] Allergies Allergen (clinical drug ingredient) Drug/Non Drug Allergy documented on EMR Reaction Allergy Type Onset Date Status sulfamethoxazole / trimethoprim Bactrim Unknown Drug Allergy Active codeine Codeine Unknown Drug Allergy Active Reason For Referral No Information Medications Medication SIG (Take, Route, Frequency, Duration) Notes Start Date End Date Status Levothyroxine Sodium 50 MCG Oral for 90 Days Active Rocklatan 0.02-0.005 % Ophthalmic for 90 Days Active Alphagan P 0.1 % Ophthalmic for 90 Days Active Omeprazole 40 MG Oral for 90 Days Active Simvastatin 20 MG Oral for 90 Days Active Multivitamin 06/28/2023 Active Social History Tobacco Use: Social History [...] Are you an other tobacco user? No Encounters Encounter Location Date Provider Diagnosis [facility] [place] [address] [facility] [place] [address] 12/25/2023 Lu Frederick Plan Of Treatment No Information Insurance Providers Payer Name Payer Address Payer Phone Subscriber Number Group Number Insured Name Patient Relationship to Insured Coverage Start Date Coverage End Date Medicare National [employer] [address] [place] [address] [id number] Laura Fuller Self - patient is the insured Medical (General) History Medical History History ICD Code Anemia Arthritis Back,Hip,and Knee pain Broken bones Glaucoma High blood pressure Kidney disease Psoriasis Warts Measles Mumps Chicken pox Joint implants/screws Headaches/Migraines Surgical History Surgery Date(Month/Year) tonsillectomy 1953 wrist surgery 2017 hip replacement 2019
== END 2024-11-04 11:36 | disposition home or self-care (01) ==
PROVIDERS: PCP Internal Medicine; Visit Provider Internal Medicine
DX: Z13.9 Encounter for screening, unspecified (principal); N30.01 Acute cystitis with hematuria

== ENCOUNTER 2024-11-20 14:34 | Outpatient (REF) | payer MEDICARE, SELFPAY ==
--- OUTSIDE RECORDS SUMMARY | 2024-11-21 10:17 | XMS_ITS | Patient Health Record ---
Author Organization [facility] Address [address] [place] [address] Care Team Providers Care Electronics Scale Tester Name Role Phone Melvi Napoles MD Primary Care Provider Rick Couch Jr Unavailable [phone] ALLERGIES Allergen (clinical drug ingredient) Drug/Non Drug [...] Problem Colon cancer screening (Z12.11) Active confirmed 816283199 Problem Diverticulosis (K57.90) Active confirmed 979354525 Problem Family history of colon cancer (Z80.0) Active confirmed 295260729 Problem Long-term use of aspirin therapy (Z79.82) Active confirmed 333101569 Problem Long-term current use of high risk medication other than anticoagulant (Z79.899) Active confirmed 140370987 PLAN OF TREATMENT Future Test Test Name Order Date COLONOSCOPY 06/19/2012 COLONOSCOPY 02/20/2017 COLONOSCOPY 08/27/2022 Insurance Providers Payer Name Payer Address Payer Phone Subscriber Number Group Number Insured Name Patient Relationship to Insured Coverage Start Date Coverage End Date MEDICARE OF [place] [address] [place] [id number] YUE COOK Self - patient is the insured [employer] ATT[employer] CLAIMS [address] [place] [address] [id number] YUE COOK Self - patient is the insured MEDICAL (GENERAL) HISTORY Medical History History ICD Code colonoscopy 04/12/17, negativ e for polyps, five-year followup based on family history glaucoma hypothyroidism hypertension Elevated cholesterol Surgical History Surgery Date(Month/Year) tonsillectomy wrist surgery right hip replacement 09/2016 hip surgery 2020
--- OUTSIDE RECORDS SUMMARY | 2024-11-21 10:17 | XMS_ITS ---
Author Organization [facility] Address [address] [place] [address] Care Team Providers Care Freelance Operator Name Role Phone Melvi Napoles MD Primary Care Provider Lu Falk Unavailable [phone] Allergies Allergen (clinical drug ingredient) Drug/Non Drug [...] 07/16/2023 Encounters Encounter Location Date Provider Diagnosis [facility] [address] [place] [address] 07/16/2023 Lu Frederick Fungal infection of nail B35.1 and Ingrown nail L60.0 Assessments Encounter Date Diagnosis (ICD Code) Assessment Notes Treatment Notes Treatment Clinical Notes Section Notes 07/16/2023 Fungal infection of nail (ICD-10 - B35.1) 07/16/2023 Ingrown nail (ICD-10 - L60.0) Plan Of Treatment Next Appt Details Follow Up: prn, Reason: Progress Notes * Laura COOKDOB: 8 (73 yo F)Acc No.[id number]:07/16/2023 Progress Notes Patient:?Laura Cook Provider:?Lu Frederick DPM :1950???Age:73 Y???Sex:Female D ate:07/16/2023 Address:[address] [place], [place] [id number] Pcp:Melvi Napoles MD Subjective: * Chief Complaints: [...] Frederick, DPM Date:? Generated for [place] ornelas/[place]udson/[place] on:?11/21/2024 10:17 AM EST History and Physical Notes * HPI [...]
--- OUTSIDE RECORDS SUMMARY | 2024-11-21 10:17 | XMS_ITS ---
Author Organization [facility] [facility] [place] Address [address] [facility] [address] Care Team Providers Care Training Officer Name Role Phone Melvi Napoles MD Primary Care Provider Lu Falk [phone] REASON FOR VISIT Formula 7 Encounters Encounter Location Date Provider Diagnosis [facility] [address] [place] [address] 07/16/2023 Lu Frederick Plan Of Treatment No Information Progress Notes * Laura COOKDOB: [birth year] (73 yo F)Acc No.[id number]:07/16/2023 Patient:?Laura Cook :1950???Age:73 Y???Sex:Female Address:[address] [place] [address] * true * Date:? Generated for Printi ceci/[place]udson/eTransmitting on:?11/21/2024 10:17 AM EST
--- OUTSIDE RECORDS SUMMARY | 2024-11-21 10:17 | XMS_ITS ---
Author Organization [facility] [place] [facility] [place] Address [address] [facility] [place] [address] Care Team Providers Care Weight Training Instructor Name Role Phone Melvi Napoles MD Primary Care Provider Lu Falk [phone] REASON FOR VISIT formula 7 Encounters Encounter Location Date Provider Diagnosis [facility] [address] [place] [address] 12/25/2023 Lu Frederick Plan Of Treatment No Information Progress Notes * Laura COOKDOB: [birth year] (73 yo F)Acc No.[id number]:12/25/2023 Patient:?Laura Cook :1950???Age:73 Y???Sex:Female Address:[address] [place] [address] * true * Date:? Generated for Printi ceci/[place]/eTransmitting on:?11/21/2024 10:17 AM EST
--- OUTSIDE RECORDS SUMMARY | 2024-11-21 10:17 | XMS_ITS | Patient Health Record ---
Author Organization [facility] Address [address] [place] [address] Care Team Providers Care Mounting Inspector Name Role Phone Melvi Napoles MD Primary Care Provider Lu Falk Unavailable [phone] Allergies Allergen (clinical drug ingredient) Drug/Non Drug [...] No Encounters Encounter Location Date Provider Diagnosis [facility] [place] [address] [facility] [address] 12/25/2023 Lu Frederick Plan Of Treatment No Information Insurance Providers Payer Name Payer Address Payer Phone Subscriber Number Group Number Insured Name Patient Relationship to Insured Coverage Start Date Coverage End Date Medicare [employer] [address] [place] [address] [id number] Laura Fuller Self - patient is the insured Medical (General) History Medical History History ICD Code Anemia Arthritis Back,Hip,and Knee pain Broken bones Glaucoma High blood pressure Kidney disease Psoriasis Warts Measles Mumps Chicken pox Joint implants/screws Headaches/Migraines Surgical History Surgery Date(Month/Year) tonsillectomy 1953 wrist surgery 2017 hip replacement 2019
== END 2024-11-20 14:35 | disposition home or self-care (01) ==
LOC: HO.LNP 14:34
PROVIDERS: PCP Internal Medicine; Visit Provider Physician Assistant
DX: R30.0 Dysuria (principal)
CPT/HCPCS: 81003; 87086; 99212

== ENCOUNTER 2024-11-20 14:34 | Outpatient (AMB) | payer MEDICARE, SELFPAY ==
--- OUTSIDE RECORDS SUMMARY | 2024-11-20 14:36 | XMS_ITS ---
Author Organization [facility] Address [address] [facility] [place] [address] Care Team Providers Care Spot Welder Body Assembly Name Role Phone Melvi Napoles MD Primary Care Provider Lu Falk Unavailable [phone] Allergies Allergen (clinical drug ingredient) Drug/Non Drug [...] 07/16/2023 Encounters Encounter Location Date Provider Diagnosis [facility] [address] [place] [address] 07/16/2023 Lu Frederick Fungal infection of nail B35.1 and Ingrown nail L60.0 Assessments Encounter Date Diagnosis (ICD Code) Assessment Notes Treatment Notes Treatment Clinical Notes Section Notes 07/16/2023 Fungal infection of nail (ICD-10 - B35.1) 07/16/2023 Ingrown nail (ICD-10 - L60.0) Plan Of Treatment Next Appt Details Follow Up: prn, Reason: Progress Notes * Laura COOKDOB: [birth year] (73 yo F)Acc No.[id number]:07/16/2023 Progress Notes Patient:?Laura Cook Provider:?Lu Frederick DPM :1950???Age:73 Y???Sex:Female D ate:07/16/2023 Address:[address] [place], [place] [id number] Pcp:Melvi Napoles MD Subjective: * Chief Complaints: * ??? [...] Frederick, DPM Date:? Generated for [place] ornelas/[place] on:?11/20/2024 02:36 PM EST History and Physical Notes * [...] person, place, and t susu Vascular DP PULSES (B): 3/4, B/L PT PULSES (B): 3/4, B/L CAPILLARY FILL TIME: immediate, all digi ts, B/L TEMPERTURE GRADIENT (C): warm to cool, p roximal to distal, B/L TROPHIC CONDITION-TEXTURE/ELASTICITY/TURGOR/HAIR GROWTH (B): normal, B/L EDEMA (C): absent, B/L PIGMENTATION: normal, B/L Nails NAILS are: Elongated, overg rown, dystrophic, lytic, greater than 3mm thick, discolored and friable with crumbly malodorous subungual debris, with pain on palpation TA T5
--- OUTSIDE RECORDS SUMMARY | 2024-11-20 14:36 | XMS_ITS | Patient Health Record ---
Author Organization [facility] Address [address] [place] [address] Care Team Providers Care Ebay Reseller Name Role Phone Melvi Napoles MD Primary Care Provider Rick Couch Jr Unavailable [phone] ALLERGIES Allergen (clinical drug ingredient) Drug/Non [...] Problem Colon cancer screening (Z12.11) Active confirmed 570116745 Problem Diverticulosis (K57.90) Active confirmed 782602480 Problem Family history of colon cancer (Z80.0) Active confirmed 310149964 Problem Long-term use of aspirin therapy (Z79.82) Active confirmed 601487908 Problem Long-term current use of high risk medication other than anticoagulant (Z79.899) Active confirmed 065506988 PLAN OF TREATMENT Future Test Test Name Order Date COLONOSCOPY 06/19/2012 COLONOSCOPY 02/20/2017 COLONOSCOPY 08/27/2022 Insurance Providers Payer Name Payer Address Payer Phone Subscriber Number Group Number Insured Name Patient Relationship to Insured Coverage Start Date Coverage End Date MEDICARE OF [place] [address] [place] [address] [id number] YUE COOK Self - patient is the insured MED[employer] ATT[employer] CLAIMS [address] [place] [address] [id number] YUE COOK Self - patient is the insured MEDICAL (GENERAL) HISTORY Medical History History ICD Code colonoscopy 04/12/17, negativ e for polyps, five-year followup based on family history glaucoma hypothyroidism hypertension Elevated cholesterol Surgical History Surgery Date(Month/Year) tonsillectomy wrist surgery right hip replacement 09/2016 hip surgery 2020
--- OUTSIDE RECORDS SUMMARY | 2024-11-20 14:36 | XMS_ITS ---
[facility] Address [address] [place] [address] Care Team Providers Care Cemetery Vault Installer Name Role Phone Melvi Napoles MD Primary Care Provider Lu Falk [phone] REASON FOR VISIT Formula 7 Encounters Encounter Location Date Provider Diagnosis [facility] [address] [place] [address] 07/16/2023 Lu Frederick Plan Of Treatment No Information Progress Notes * Laura COOKDOB: 8 (73 yo F)Acc No.[id number]:07/16/2023 Patient:?Laura Cook :1950???Age:73 Y???Sex:Female Address:[address] [place] [address] * true * Date:? Generated for Yogeshi ceci/[place]/eTransmitting on:?11/20/2024 02:36 PM EST
--- OUTSIDE RECORDS SUMMARY | 2024-11-20 14:36 | XMS_ITS ---
[facility] Address [address] [facility] [place] [address] Care Team Providers Care Public Affairs Specialist Name Role Phone Melvi Napoles MD Primary Care Provider Lu Falk [phone] REASON FOR VISIT formula 7 Encounters Encounter Location Date Provider Diagnosis [facility] [address] [place] [address] 12/25/2023 Lu Frederick Plan Of Treatment No Information Progress Notes * Laura COOKDOB: [birth year] (73 yo F)Acc No.[id number]:12/25/2023 Patient:?Laura Cook :1950???Age:73 Y???Sex:Female Address:[address] [place] [address] * true * Date:? Generated for [place]oges[place] ceci/[place]/eTransmitting on:?11/20/2024 02:36 PM EST
--- OUTSIDE RECORDS SUMMARY | 2024-11-20 14:37 | XMS_ITS | Patient Health Record ---
Author Organization [facility] Address [address] [facility] [place] [address] Care Team Providers Care Sterile Technician Name Role Phone Melvi Napoles MD Primary Care Provider Lu Falk Unavailable [phone] Allergies Allergen (clinical drug ingredient) Drug/Non Drug [...] No Encounters Encounter Location Date Provider Diagnosis [facility] [place] [address] [facility] [place] [address] 12/25/2023 Lu Frederick Plan Of Treatment No Information Insurance Providers Payer Name Payer Address Payer Phone Subscriber Number Group Number Insured Name Patient Relationship to Insured Coverage Start Date Coverage End Date Medicare National Govt Sv[employer] Inc [address] [place] [address] [id number] Laura Fuller Self - patient is the insured Medical (General) History Medical History History ICD Code Anemia Arthritis Back,Hip,and Knee pain Broken bones Glaucoma High blood pressure Kidney disease Psoriasis Warts Measles Mumps Chicken pox Joint implants/screws Headaches/Migraines Surgical History Surgery Date(Month/Year) tonsillectomy 1953 wrist surgery 2017 hip replacement 2019
--- NOTE | 2024-11-20 14:49 | MHC.OFFWIV ---
Intake Vital Signs 11/20/24 14:55 Weight 162 lb BP 142/80 H Blood Pressure Location Lt brachial Position Sitting Pulse 78 Pulse Source Pulse Oximeter Temp 98.1 F Temp Source Oral Pulse Oximetry (%) 98 Oxygen Delivery Method Room Air Intake Visit Reasons: EP-UTI Patient Tobacco Use Status: Never used Tobacco Allergies brimonidine Allergy (Unknown, Verified 11/04/24 10:38) excessive sleepiness oxycodone Allergy (Unknown, Verified 11/04/24 10:38) nausea, hallucinations Sulfa (Sulfonamide Antibiotics) [SULFA (SULFONAMIDE ANTIBIOTICS)] Allergy (Unknown, Verified 11/04/24 10:38) HIVES timolol Allergy (Unknown, Verified 11/04/24 10:38) lowers blood pressure to dangeous levels HPI HPI Comments History of Present Illness Details Pt presents for recurrent UTI SHe was seen on 10/20 and 11/04 for symptoms 4th UTI since October 01 (had rotator cuff surgery) Has been using flushable wipes, guide rail cleaner and shas noticed difficulty with arm ROM due to surgery and ? hygeine issue Both days grew + E. COli but culture from 11/04 was resistent to cipro Pt tx with levaquin both times but second time they called in macrobid after resistace noted. Completed all antibiotic courses She said 2 days ago she started with symptoms States starts with burning eyes and lower back ache Then onset urgency and dysuria + urgency and frequency Some incontinence She denies noted blood but has microscopic blood known in the past December 23 has urology appointment Staying hydrated and eating well No vaginal discharge or bleeding Discomfort is 3/10 [facility] Medical History HTN (hypertension) Glaucoma Recurrent UTI Subcutaneous cyst Postmenopausal Hyperlipidemia Osteopenia Normal colonoscopy Mammogram normal OA (osteoarthritis) of shoulder Annual physical exam Hypothyroidism Surgical History H/O colonoscopy S/P wrist surgery S/P bilateral hip replacements Family History Mother Mental health disorder Sister Mental health disorder Sister Mental health disorder Sister Mental health disorder Sister Mental health disorder Social History Housing: House Patient Tobacco Use Status: Never used Tobacco e-Cigarette/Vaping Use: Never Used Second Hand Smoke Exposure: No service: No Current occupational status: retired Cognitive needs: No Hearing needs: No Vision needs: Yes Review of Systems Const Denies chills and Denies fever(s) Eyes Reports irritation Card Denies chest pain Resp Denies cough GI Reports abdominal pain and Denies vomiting Reports dysuria, Reports urinary hesitancy and Reports urinary urgency Musc Reports back pain Physical Exam Vital Signs: Last Vital Signs Temp 98.1 F 11/20/24 14:55 Pulse 78 11/20/24 14:55 BP 142/80 H 11/20/24 14:55 Pulse Ox 98 11/20/24 14:55 Oxygen Delivery Method Room Air 11/20/24 14:55 General: Non-toxic, NAD. Speaking full sentences. Skin: Warm dry throughout. Respiratory: No respiratory distress Cardiac: RRR. No murmur Abdominal: BS present. No CVAT. Minimal suprapubic tenderness to palpation. MSK: Full ROM extremities. Neurology: Alert. No aphasia or facial droop. Gait without abnormality Psych: Good mood and affect Results AMB Urinalysis, Automated UA Leukoctes 0 Jocelyn/uL Last Edit by APRIL Galvan on 11/20/24 15:06 UA Nitrite Negative Last Edit by APRIL Galvan on 11/20/24 15:06 UA Urobilinogen 0.2 mg/dL Last Edit by APRIL Galvan on 11/20/24 15:06 UA Protein 0 mg/dL Last Edit by APRIL Galvan on 11/20/24 15:06 UA pH 7.0 Last Edit by APRIL Galvan on 11/20/24 15:06 UA Blood 25 Lux/uL Last Edit by APRIL Galvan on 11/20/24 15:06 UA Specific [place] 1.010 Last Edit by APRIL Galvan on 11/20/24 15:06 UA Ketone Negative Last Edit by APRIL Galvan on 11/20/24 15:06 UA Bilirubin 0 mg/dL Last Edit by APRIL Galvan on 11/20/24 15:06 UA Glucose 0 mg/dL Last Edit by APRIL Galvan on 11/20/24 15:06 Results Reviewed Results Reviewed: Laboratory Last Values Urine pH (Auto) 7.0 11/20/24 15:05 Specific [place] (Auto) 1.010 11/20/24 15:05 Urine Protein (Auto) 0 mg/dL 11/20/24 15:05 Glucose (UA)(Auto) 0 mg/dL 11/20/24 15:05 Urine Ketones (Auto) Negative 11/20/24 15:05 Urine Blood (Auto) 25 Lux/uL 11/20/24 15:05 Urine Nitrite (Auto) Negative 11/20/24 15:05 Urine Bilirubin (Auto) 0 mg/dL 11/20/24 15:05 Urine Urobilinogen (Auto) 0.2 mg/dL 11/20/24 15:05 Leukocyte Esterase (Auto) 0 Jocelyn/uL 11/20/24 15:05 Assessment & Plan Assessment & Plan (1) Dysuria: Code(s): R30.0 - Dysuria Plan: Pt seen and evaluated U/a improved from last visits; + blood which she is aware of Culture will be sent Concern is that pt has all her recurrent UTI symptoms x 2 days without significant urine Due to it being Saturday, concerned that she will not have culture results until next week and may worsen over weekend if it is bacterial Will send in Keflex; pt aware if culture negative that she needs to discontinue the antibiotic She expresses verbal understanding and has no additional questions at this time Orders: Orders Urine Culture Today R30.0 - Dysuria AMB Urinalysis Automated Today Z13.9 - Encounter for screening, unspecified Medications: New cephalexin 500 mg PO BID 14 caps 0RF Coding Level of Care Code Est Pt Level 3 (46143) Diagnoses Dysuria R30.0
[2024-11-20 14:55] VITALS: BP 142/80; PULSE 78; TEMP 36.7; O2SAT 98
== END 2024-11-20 15:37 | disposition home or self-care (01) ==
PROVIDERS: PCP Internal Medicine; Visit Provider Physician Assistant
DX: R30.0 Dysuria (principal); Z13.9 Encounter for screening, unspecified

== ENCOUNTER 2024-12-23 08:00 | Outpatient (RCR) | payer MEDICARE, SELFPAY | END 2024-12-23 09:11 | disposition home or self-care (01) | LOC: HO.PTCHIC 08:00 | PROVIDERS: PCP Internal Medicine; Visit Provider Orthopaedic Surgery | DX: Z47.1 Aftercare following joint replacement surgery (principal); Z96.611 Presence of right artificial shoulder joint | CPT/HCPCS: 97110; 97162 ==

== ENCOUNTER 2025-04-09 09:47 | Outpatient (AMB) | payer MEDICARE, SELFPAY ==
[2025-04-09 09:50] VITALS: BP 106/74; PULSE 76; RESP 18; TEMP 36.9; O2SAT 96; BMI 29.0
--- NOTE | 2025-04-09 09:50 | A.OFFVIS_ITS ---
Intake Vital Signs 04/09/25 09:50 Height 5 ft 3 in Weight 164 lb BMI 29.0 BP 106/74 Blood Pressure Location Lt brachial Position Sitting Respiration 18 Pulse 76 Pulse Source Pulse Oximeter Temp 98.5 F Temp Source Oral Pulse Oximetry (%) 96 Oxygen Delivery Method Room Air Intake Visit Reasons: AWV G0439 Intake Note: Pt is here today for AWV. Allergies brimonidine Allergy (Unknown, Verified 04/09/25 09:52) excessive sleepiness oxycodone Allergy (Unknown, Verified 04/09/25 09:52) nausea, hallucinations Sulfa (Sulfonamide Antibiotics) [SULFA (SULFONAMIDE ANTIBIOTICS)] Allergy (Unknown, Verified 04/09/25 09:52) HIVES timolol Allergy (Unknown, Verified 04/09/25 09:52) lowers blood pressure to dangeous levels Medication List - Last Reconciled 04/09/25 by Melvi Napoles MD cholecalciferol (vitamin D3) 10 mcg PO DAILY cyclosporine 0.05% (Restasis) 1 drp ophthalmic (eye) Q12H levothyroxine 50 mcg PO DAILY omega-3 fatty acids 1,000 mg PO DAILY omeprazole 40 mg PO DAILY PRN simvastatin 20 mg PO BEDTIME HPI AWV G0439 HPI Details Patient presents for annual visit. She has been under lot of stress related to her son with 3 children getting . Patient complains of chronic lower back pain radiating to right lower extremity worse when sitting for long time or walking up or down the stairs. She denies any weakness or numbness in extremities. Patient noticed on her Apple watch low heart rate to 40s while she is sleeping. She denies any chest pain shortness or breath or palpitations. Initiated the conversation about Advanced Directives. Advanced Directives help? patients prepare for current and future decisions about their medical treatment? and place of care. Discussed with patient that it is a process where a patients? current condition and prognosis are reviewed, their wishes for information? regarding their illness are elicited, and likely medical dilemmas are presented? and options discussed. The form can be amended as needed, reviewed yearly and? make changes as needed IPPE/AWV ? year old presents? for her ? Annual? Wellness Visit, initial visit.? Medical / Social History Reviewed? Past Medical History ?Yes? . ? [facility]? of Care / Care Team list updated ?Yes . ? Surgical/Hospitalization? History ?Yes . ? Current Medications? (including OTC and supplements) ?Yes . ? Family History ?Yes? . ? Tobacco? Control form ?Yes . ? AUDIT-C (Alcohol use) form? ?Yes . ? Illicit drug use in Social? History ?Yes . ? Current diagnosis of? depression? ?No ? Appropriate PHQ2/PHQ9? completed ?Yes . ? Data entered by ?Medical? Verification Clerk and reviewed by provider ? Fall Risk ? Fall? History? Have you had any falls with? injury in the past year? ?No . ? Have you had two or more? falls in the past year? ?No . ? Fall Risk Assessment: ?No? falls in the past year . ? HRA filled out by? the patient, reviewed by Provider and scanned. ? IPPE/AWV ? Balance? Romberg? ?Yes . ? Tandem? walk ?Yes . ? Walk and? Turn ?Yes . ? Rise from? sit to stand ?Yes . ?Vision? Corrective? lens ?Yes ? Vision? screen ? Up-to-date, has an appointment [] for vision? screening and glaucoma screening ?Hearing? Whisper? test ?pass .? Initiated the conversation about Advanced Directives. Advanced Directives help? patients prepare for current and future decisions about their medical treatment? and place of care. Discussed with patient that it is a process where a patients? current condition and prognosis are reviewed, their wishes for information? regarding their illness are elicited, and likely medical dilemmas are presented? and options discussed. The form can be amended as needed, reviewed yearly and? make changes as needed Written? Plan?Completed. See Patient? Documents. [facility] Medical History HTN (hypertension) Glaucoma Recurrent UTI Subcutaneous cyst Postmenopausal Hyperlipidemia Osteopenia Normal colonoscopy Mammogram normal OA (osteoarthritis) of shoulder Annual physical exam Hypothyroidism Surgical History H/O colonoscopy S/P wrist surgery S/P bilateral hip replacements Family History Mother Mental health disorder Sister Mental health disorder Sister Mental health disorder Sister Mental health disorder Sister Mental health disorder Social History Housing: House Patient Tobacco Use Status: Never used Tobacco e-Cigarette/Vaping Use: Never Used Second Hand Smoke Exposure: No service: No Current occupational status: retired Cognitive needs: No Hearing needs: No Vision needs: Yes Questionnaire Medicare Wellness Checkup [age] What gender do you identify with?: female During the past 4 weeks, how much have you been bothered by emotional problems such as feeling anxious, depressed, irritable, sad or downhearted, and blue?: not at all During the past 4 weeks, has your physical & emotional health limited your social activities with family, friends, neighbors, or groups?: slightly During the past 4 weeks, how much bodily pain have you generally had?: moderate pain During the past 4 weeks, was someone available to help you if you needed & wanted help?: yes, quite a bit During the past 4 weeks, what was the hardest physical activity you could do for at least 2 minutes?: heavy Can you get to places out of walking distance without help? (For eg., can you travel alone on buses, taxis or drive your car?): Yes Can you go shopping for groceries or clothes without someone's help?: Yes Can you prepare your own meals?: Yes Can you do your housework without help?: Yes Because of any health problems, do you need the help of another person with your personal care needs such as eating, bathing, dressing or getting around the house?: No Can you handle your own money without help?: Yes During the past 4 weeks, how would you rate your health in general?: very good During the past 4 weeks how have things been going for you?: pretty well Are you having difficulties driving your car?: no Do you always fasten your seat belt when you are in a car?: yes, usually During past 4 weeks, have you been bothered by the following: never: Sexual problems?, Trouble eating well?, Teeth or denture problems? and Problems using the telephone? and often: Falling or dizzy when standing up and Tiredness or fatigue? Have you fallen 2 or more times in the past year?: No Are you afraid of falling?: No Are you a smoker?: no During the past 4 weeks, how many drinks of wine, beer, or other alcoholic beverages did you have?: 1 drink or less per week Do you exercise for about 20 minutes 3 or more times a week?: yes, some of the time Have you been given information to help with the following?: no: Hazards in your house that might hurt you? and no: Keeping track of your medications? How often do you have trouble taking medicines the way you have been told to take them?: I always take medicine as prescribed How confident are you that you can control & manage most of your health problems?: very confident What is your race?: White Mini Mental State Exam (MMSE) Orientation What is the (year) (season) (date) (day) (month)?: year, season, date, day and month Where are we (state) (county) (town or city) (hospital) (floor)?: state, county, town or city, hospital/clinic and floor Registration Name of 3 unrelated objects clearly and slowly, then ask patient to repeat all 3 of them. (1st repeat determines score. Make sure they can repeat all three): object 1, object 2 and object 3 Attention & Calculation (CHOOSE ONE) Spell WORLD backwards (DLROW): 5 letters Recall Ask patient to repeat the 3 items from question #3.: object 1, object 2 and object 3 Language Show patient a wristwatch & ask what it is. Repeat for pencil.: watch and pencil Ask the patient to repeat the phrase 'No ifs, ands, or buts' after you.: correct Ask the patient to 'take a piece of paper with their right hand' 'fold paper in half' 'place paper on floor': take paper in right hand, fold paper in half and place paper on floor Print the sentence 'CLOSE YOUR EYES' on a piece. If patient actually closes eyes then score.: followed written direction Give patient a blank piece of paper & ask to write a sentence. Score if it contains a noun & verb.: sentence contains subject and verb Score Score: 29 Activity of Daily Living Bathing - sponge bath, tub bath or shower: receives no assistance (gets in/out by self, if usual bathing means Dressing - getting clothes from closets & drawers, including inner/outer garments & fasteners.: gets clothes & gets completely dressed without help Toileting - going to the 'toilet room' for urine/bowel elimination & cleaning self/arranging clothes: goes to toilet room, cleans self, arranges clothes without help Transfer: moves in & out of bed and chair without help (may use support object) Continence: controls urination/bowel movements completely by self Feeding: feeds self without help Total Score: 0 Information obtained from: patient Using telephone: independent Traveling: independent Shopping: independent Preparing meals: independent Housework: independent Taking medicine: independent Managing money: independent PHQ-9 Over the last 2 weeks, how often have you been bothered by any of the following problems? 1. Little interest or pleasure in doing things: not at all 2. Feeling down, depressed, or hopeless: not at all 3. Trouble falling or staying asleep, or sleeping too much: not at all 4. Feeling tired or having little energy: several days 5. Poor appetite or overeating: not at all 6. Feeling bad about yourself - or that you are a failure or have let yourself or your family down: not at all 7. Trouble concentrating on things, such as reading the newspaper or watching television: not at all 8. Moving or speaking so slowly that other people could have noticed. Or the opposite - being so fidgety or restless that you have been moving around a lot more than usual: not at all 9. Thoughts that you would be better off or of hurting yourself in some way: not at all Total score: 1 Depression Screening Interpretation: Negative Depression Screening Done: Yes 08206 - PHQ-9 Billing: Yes Source: Developed by Drs. Leon Rangel, Ame Guzman, Jose Maria Moore and colleagues, with an educational ravi from [employer]. Review of Systems Const All systems reviewed & are unremarkable except as noted in HPI and below Eyes Reports no additional complaints ENT Reports no additional complaints Card Reports no additional complaints Resp Reports no additional complaints GI Reports no additional complaints Reports no additional complaints Physical Exam Vital Signs: Last Vital Signs Temp 98.5 F 04/09/25 09:50 Pulse 76 04/09/25 09:50 Resp 18 04/09/25 09:50 BP 106/74 04/09/25 09:50 Pulse Ox 96 04/09/25 09:50 Oxygen Delivery Method Room Air 04/09/25 09:50 BMI result Body Mass Index 29.0 Const General: no acute distress HEENT Head: Yes normal to inspection Eyes General: appearance normal, both eyes and all related structures Neck Neck: Yes no lymphadenopathy and Yes supple Resp Effort & Inspection: normal respiratory effort Auscultation: clear to auscultation bilaterally Cardio Rhythm: regular rhythm Heart sounds: S1 normal heart sound present and S2 normal heart sound present GI Inspection: Yes normal to inspection Palpation (GI): Soft to palpation Percussion: Yes normal to percussion Auscultation: normal bowel sounds Back/Spine/Pelvis Other: decreased range of motion lumbar spine, straight leg rising 90 degrees bilaterally, motor strength is 5/5 bilaterally, deep tendon reflexes 1+ bilaterally Extrem General: Yes no clubbing, cyanosis or edema Immunizations pneumoc 20-carol conj-dip cr(PF) 0.5 mL IM syringe Performing Provider: Melvi Napoles MD [place] [facility] [place] [facility] Administered by: Wagner Lemus CMA on 04/09/25 10:54 Dose Route Admin Location Dispensed Lot Number Expiration Date [facility] [employer] 0.5 mL IM Right Deltoid 0.5 mL [id number] 03/01/26 9371-0020-14 [employer]ior[employer]leep VIS Given Date VIS Provided VIS Publication Date 04/09/25 Single Vaccine 22 Eligibility Eligibility Date Funding Source Not [facility] Eligible 04/09/25 Private Assessment & Plan Assessment & Plan (1) Sciatica: Code(s): M54.30 - Sciatica, unspecified side Plan: Chronic sciatica obtain x-ray of lumbar spine and referred to physical therapy (2) Bradycardia: Code(s): R00.1 - Bradycardia, unspecified Plan: EKG showed normal sinus rhythm bradycardia at [address]-T changes. We will obtain 24 hour Holter to evaluate (3) Vitamin D deficiency: Code(s): E55.9 - Vitamin D deficiency, unspecified Plan: Continue vitamin-D supplement (4) Postmenopausal: Code(s): Z78.0 - Asymptomatic menopausal state Plan: Obtain DEXA to follow-up on osteopenia (5) Annual physical exam: Code(s): Z00.00 - Encounter for general adult medical examination without abnormal findings Plan: Well-balanced diet regular physical activity discussed with the patient continue current medications she will have a fasting blood work today. Stress manageme nt discussed with the patient she declined medications Orders: Orders XR lumbar spine 2-3V Today M54.30 - Sciatica, unspecified side Pneumococcal 20 Immunization Today Z23 - Encounter for immunization Complete Blood Count Auto Diff Today E53.8 - Deficiency of other specified B group vitamins, E55.9 - Vitamin D deficiency, unspecified, R73.9 - Hyperglycemia, unspecified ECG holter monitor 24 hour Today E53.8 - Deficiency of other specified B group vitamins, E55.9 - Vitamin D deficiency, unspecified, R00.1 - Bradycardia, unspecified, R73.9 - Hyperglycemia, unspecified Lipid Panel Today Z00.00 - Encounter for general adult medical examination without abnormal findings XR DEXA axial skeleton Today Z78.0 - Asymptomatic menopausal state AMB EKG-In Office Today M54.30 - Sciatica, unspecified side, R00.1 - Bradycardia, unspecified PT Evaluation and Treatment Today M54.30 - Sciatica, unspecified side Comprehensive Flomot. Panel Fast Today E53.8 - Deficiency of other specified B group vitamins, E55.9 - Vitamin D deficiency, unspecified, R73.9 - Hyperglycemia, unspecified TSH reflex Free T4 Today E53.8 - Deficiency of other specified B group vitamins, E55.9 - Vitamin D deficiency, unspecified, R73.9 - Hyperglycemia, unspecified Medications: Changed From omeprazole 40 mg PO DAILY PRN To omeprazole 40 mg PO DAILY 90 caps 3RF Refilled levothyroxine 50 mcg PO DAILY 90 tabs 3RF simvastatin 20 mg PO BEDTIME 90 tabs 3RF Quality Reporting (2019) Depression/Bipolar (159/160/161/177) PHQ-9: Total score: 1 Coding Level of Care Code Medicare Subsequent (G0439) Diagnoses Sciatica M54.30 Bradycardia R00.1 Vitamin D deficiency E55.9 Postmenopausal Z78.0 Annual physical exam Z00.00 CPT Codes Advance Care Planning - Advance Care Planning discussion: On file, no changes ([id number]) Advance Care Planning - Time spent: 1-15 minutes, on File ([id number]) Additional Codes PHQ-9 - 21259 - PHQ-9 Billing: Yes ([id number]) Advance Care Planning Advance Care Planning discussion: On file, no changes Forms completed: Health Care Proxy Time spent: 1-15 minutes, on File Did not discuss due to Cultural/Spiritual beliefs: Yes
--- OUTSIDE RECORDS SUMMARY | 2025-04-09 10:11 | XMS_ITS | Continuity of Care Document ---
Author Organization [facility] [place] Address [address] [place] [address]- Care Team Providers Care Paver Installer Name Role Phone Melvi Napoles MD Primary Care Physician Encounter 03/29/25 - 04/05/25 [facility] [address], [address] [place] [address]- Attending Physician: Terence Brown MD, I Admitting Physician: Terence Brown MD, I Referring Physician: Terence Brown MD, I Encounter Type: OutPatient One Time Allergies, Adverse Reactions, Alerts Substance Criticality Severity Reaction Reaction Severity Status sulfa drugs Hives Active Medications ascorbic acid 1000 mg oral tablet 1 tablet = 1,000 mg, By Mouth, Daily, # 30 tablet, 0 Refills, Maintenance, 03/01/15 9:19:49 AM EDT, Tablet Start Date: 03/01/15 Status: Ordered Quantity: 30.0 Unit: tablet Repeat number: 1 Aspirin Enteric Coated 81 mg oral delayed release tablet 1 tablet = 81 mg, By Mouth, Daily, 0 Refills, Maintenance, 03/01/15 9:17:03 AM EDT Start Date: 03/01/15 Status: Ordered Repeat number: 1 bifidobacterium-lactobacillus oral tablet 1 tablet, By Mouth, Daily, # 30 tablet, 0 Refills, Maintenance, 03/01/15 9:19:06 AM EDT, Tablet Start Date: 03/01/15 Status: Ordered Quantity: 30.0 Unit: tablet Repeat number: 1 Brimonidine Ophthalmic Solution 1 drops, 0 Refills, Maintenance, 03/01/15 9:20:19 AM EDT Start Date: 03/01/15 Status: Ordered Repeat number: 1 cholecalciferol 2000 intl units oral tablet 1 tablet = 2,000 International_Units, By Mouth, Daily, 0 Refills, Maintenance, 03/01/15 9:19:35 AM EDT Start Date: 03/01/15 Status: Ordered Repeat number: 1 Colace sodium 100 mg oral capsule 1 capsule = 100 mg, By Mouth, 2 times a day, PRN for constipation, # 20 capsule, 0 Refills, Maintenance, 03/01/15 9:19:22 AM EDT, Capsule Start Date: 03/01/15 Status: Ordered Quantity: 20.0 Unit: capsule Repeat number: 1 Cranberry oral capsule 0 Refills, Maintenance, 03/15/22 11:38:00 AM EDT, Partial fill upon patient request if the prescription is for a schedule II opioid drug. Start Date: 03/15/22 Status: Ordered Repeat number: 1 Estrace Vaginal Cream 0.1 mg/g See Instructions, 1 gram Vaginally at bedtime twice per week, # 42 Gm, 4 Refills, Maintenance, 03/15/22 11:34:00 AM EDT, [facility], Pt will be using the Sonda41 Rx card. ; Partial fill upon patient request if the prescription is for a schedule II opioid drug., 160, cm, 03/15/22 11:04:00 EDT, Height, 76.5, kg, 03/15/22 11:04:00 EDT, Dry Weight Start Date: 03/15/22 Status: Ordered Quantity: 42.0 Unit: g Repeat number: 5 Fish Oil By Mouth, 0 Refills, Maintenance, 03/15/22 11:09:00 AM EDT, Partial fill upon patient request if theprescription is for a schedule II opioid drug. Start Date: 03/15/22 Status: Ordered Repeat number: 1 levothyroxine 0.05 mg oral tablet 1 tablet = 50 mcg, By Mouth, Daily, # 30 tablet, 0 Refills, Maintenance, 03/01/15 9:17:20 AM EDT, Tablet Start Date: 03/01/15 Status: Ordered Quantity: 30.0 Unit: tablet Repeat number: 1 Multivitamin Daily, 0 Refills, Maintenance, 03/15/22 11:38:00 AM EDT, Partial fill upon patient request if the prescription is for a schedule II opioid drug. Start Date: 03/15/22 Status: Ordered Repeat number: 1 omeprazole 40 mg oral enteric coated capsule 1 capsule = 40 mg, By Mouth, Daily, # 30 capsule, 0 Refills, Maintenance, 03/01/15 9:17:50 AM EDT, EC Capsule Start Date: 03/01/15 Status: Ordered Quantity: 30.0 Unit: capsule Repeat number: 1 simvastatin 20 mg oral tablet 1 tablet = 20 mg, By Mouth, Daily at bedtime, # 30 tablet, 0 Refills, Maintenance, 03/01/15 9:17:31 AM EDT, Tablet Start Date: 03/01/15 Status: Ordered Quantity: 30.0 Unit: tablet Repeat number: 1 Xalatan 0.005% Ophth 1 drops, Eyes, Both, Daily at bedtime, 0 Refills, Maintenance, 03/01/15 9:19:59 AM EDT Start Date: 03/01/15 Status: Ordered Repeat number: 1 Problem List Condition Confirmation Course Effective Dates Status Health St atus Informant Arthritis Confirmed Active Glaucoma Confirmed Active High cholesterol Confirmed Active Hypothyroid Confirmed Active Frequent UTI Confirmed Active Results Radiology Reports * Exam Date Time Procedure Performing Provider Status 03/29/25 1:30 PM US Renal Bladder Brianna Romano odified Notes: (US Renal Bladder) Reason For Exam: acute cystitis without hematuria RESULT: US Renal Bladder US Renal Bladder [facility] [address] [place] [address], [id number]. INDICATION / CLINICAL QUESTION: Acute/recurrent cystitis without hematuria. Patient Age 74 years. COMPARISON: None. FINDINGS: Single bilateral upper pole renal cysts measuring approximately 2 cm maximal dimension. Right kidney: 10 cm in length. No hydronephrosis, stone, scarring or mass. Normal parenchymal thickness and echotexture. Left kidney: 10 cm in length. No hydronephrosis, stone, scarring or mass. Normal parenchymal thickness and echotexture. Bladder: Incompletely distended, but no evidence of stone, mass, wall thickening or debris. Prevoid volume: 250 cc. Postvoid volume: 45 cc. IMPRESSION: Small bilateral renal cysts. Limited bladder evaluation due to underdistention. WSN: [id number] Ordering Physician: Terence Brown I Dictated By: David Boswell MD Dictated Date/Time: 03/29/25 2:06 pm Reviewed By: David Boswell MD Signed By: David Boswell MD Signed Date/Time: 03/29/25 2:06 pm Transcribed By: BONIFACIO Transcribed Date/Time: 03/29/25 2:01 pm Social History Social History Type Response Smoking Status Never (less than 100 in lifetime) entered on: 03/15/22 Sex Sex Representation Female (finding) Patient Care team information Care Team Personnel Name: Melvi Napoles MD Position: [facility] Physician - Primary Care Member Role: PCP [address]: [address] [place] [address] Telecom: Insurance Providers Guarantor name: YUE COOK Health Plan Information #: 1 Payer: MEDICARE PART B OUTPT Member Number: [id number] Policy Number: NA Group Number: NA Health Plan Information #: 2 Payer: MEDEX Member Number: [id number] Policy Number: NA Group Number: NA
--- OUTSIDE RECORDS SUMMARY | 2025-04-09 10:11 | XMS_ITS | Clinical Summary ---
Author Organization [facility] Address [address] [place] [address] Care Team Providers Care Buffet Manager Name Role Phone Unavailable Primary Care Provider Unavailabl e Social History Tobacco Use Types Packs/Day Years Used Date Smoking Tobacco: Never Assessed Sex and Gender Information Value Date Recorded Sex Assigned at Not on file Gender Identity Not on file Sexual Orientation Not on file Plan of Treatment Not on file
--- OUTSIDE RECORDS SUMMARY | 2025-04-09 10:11 | XMS_ITS ---
Author Organization [facility] Address [address] [facility] [place] [address] Care Team Providers Care Culinary Instructor Name Role Phone Melvi Napoles MD Primary Care Provider Lu Falk [phone] REASON FOR VISIT formula 7 Encounters Encounter Location Date Provider Diagnosis [facility] [address] [place] [address] 12/25/2023 Lu Frederick Plan Of Treatment No Information Progress Notes * Laura COOKDOB: 8 (73 yo F)Acc No.[id number]:12/25/2023 Patient:?Laura Cook :1950???Age:73 Y???Sex:Female Address:[address] [place] [address] * true * Date:? Generated for Printi ceci/Hudson/eTransmitting on:?04/09/2025 10:11 AM EDT
--- OUTSIDE RECORDS SUMMARY | 2025-04-09 10:11 | XMS_ITS | Patient Health Record ---
Author Organization [facility] Address [address] [place] [address] Care Team Providers Care Screen Printer Helper Name Role Phone Melvi Napoles MD Primary Care Provider Rick Couch Jr Unavailable [phone] Allergies Allergen (clinical drug ingredient) Drug/Non Drug Allergy documented on EMR Reaction Allergy Type Onset Date Status Sulfa Unknown Drug Allergy Active Timolol Unknown Drug Allergy Active Reason For Referral [...] Active Probiotic 1 1 Orally QD Active Immunizations Vaccine Route Administration Date Status Comme nts Influenza Unknown 10/18/2021 Administered Social History Alcohol Screen Question Answer Notes Did you [...] Never (0 point) Points 1 Interpretation Negative Section Notes: 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 Problems Problem Type SNOMED Code ICD Code Onset Dates Problem Status W/U Status Risk Notes Problem 001180674 Colon cancer screening (Z12.11) Active confirmed Problem 758340284 Diverticulosis (K57.90) Active confirmed Problem 511075541 Family history o f colon cancer (Z80.0) Active confirmed Problem 744449696 Long-term use of aspirin therapy (Z79.82) Active confirmed Problem 098264782 Long-term curren t use of high risk medication other than anticoagulant (Z79.899) Active confirmed Plan Of Treatment Future Test Test Name Order Date COLONOSCOPY 06/19/2012 COLONOSCOPY 02/20/2017 COLONOSCOPY 08/27/2022 Insurance Providers Payer Name Payer Address Payer Phone Subscriber Number Group Number Insured Name Patient Relationship to Insured Coverage Start Date Coverage End Date MED[place]ARE OF [place] [address] [place] [address] [phone] [id number] JOYCE YUE Self - patient is the insured MED[employer] ATT[employer] CLAIMS [address] [place] [address] [id number] JOYCE YUE Self - patient is the insured Medical (General) History Medical History History ICD Code colonoscopy 04/12/17, negativ e for polyps, five-year followup based on family history glaucoma hypothyroidism hypertension Elevated cholesterol Surgical History Surgery Date(Month/Year) tonsillectomy wrist surgery right hip replacement 09/2016 hip surgery 2020
--- OUTSIDE RECORDS SUMMARY | 2025-04-09 10:12 | XMS_ITS | Data Portability ---
Author Organization [place] [facility] [place], [facility] Address [address] [place] [address] Care Team Providers Care Behavior Analyst Name Role Phone AYDIN GAYLE Primary Care [...] with this plan. This visit is a jtxu-pv-qldz visit during the COVID-19 pandemic. Based on [...] all services provided today in accordance with [facility] and CDC Guidelines. There was additional practice expense incurred due to the Public Health Emergency. This additional expense includes but is not limited to: - Additional clinical staff and medical technical solutions director time for pre-screening - Time spent reviewing [...] with this appointment. This visit is a uuis-dn-qsqr visit during the COVID-19 pandemic. Based on [...] all services provided today in accordance with [facility] and CDC Guidelines. There was additional practice expense incurred due to the Public Health Emergency. This additional expense includes but is not limited to: * Additional clinical staff and medical technical solutions director time for pre-screening * Time spent reviewing [...] views minim um Fin al Report EXAM#: [id number] PROCED URE: DXR 0093 XR HUMERU [...] M.D. On: May 26 2021 10:51A [email or web address] [facility] [address] [facility], [place], [address], 05/26/2021 13:29:40 05/26/20 21 05/26/2021 XR, shoul nabil, 2 or more view Fin al Report EXAM#: [id number] PROCED URE: DXR 0145 XR SHOULD [...] M.D. On: May 26 2021 10:51A [email or web address] [facility] [address] [facility], [place], [address], 05/26/2021 13:29:40 09/18/2009/18/2021 XR, teresa ferrer http:/ [email or web address] ntegra tionPr ocesso r.aspx ?CMD=O PENSTU DY&ACC ESSION =[id number] [facility] [address], [address], 09/18/2021 11:46:23 09/18/2009/18/2021 jud TEJADA http:/ [email or web address] ntegra tionPr ocesso r.aspx ?CMD=O PENSTU DY&ACC ESSION =[address] [facility] [address], [address], 09/18/2021 11:46:24 Result Notes None recorded. Problems Name Problem SNOMED Code Status Onset Date Resolution Date Notes Provider Name and Address Organization Details Recorded Time Localized , primary osteoarth ritis of the shoulder region 017412320 Active 2020 [address] GOTTL[address]B [address] [place] [address], [phone] , [facility] 11:57:14 History of operation on musculosk eletal system 317752018 Active 2018 History of musculosk eletal operation Not Available [facility] 2 01:04:36 Localized , primary osteoarth ritis of the pelvic region and thigh 135704993 Active 2015 Localized , primary osteoarth ritis of the pelvic region and thigh Loc alized, primary osteoarth ritis of the pelvic region and thigh Not Available [facility] 2 01:04:36 Patient encounter status 373316407 Active 2015 Not Available [facility] 2 01:04:37 History of artificia l joint 815702682 Active 2018 History of artificia l joint Not Available [facility] 2 01:04:37 Trochante wali bursitis of right hip 81320290433 9100 Active 2018 Not Available [facility] 2 01:04:37 Notes:Problem Name: Total hi p replacement Prosthesis Problem Code: 269353156 Problem Code Type: SNOMED Status: Active Start_Date: 11/02/2016 - Problem Notes None recorded. Procedures Surgical History Date Name Laterality Status Provider Name and Address Organization Details Recorded Time 09/01/20 19 Orthopaedic Surgery completed Ana Laura Fernandez [facility] [place] 05/26/2021 10:59:12 09/16/20 17 Orthopaedic Surgery completed Mally Apodaca [facility] [place] 09/18/2021 10:55:34 12/02/19 06 Orthopaedic Surgery completed Mally Apodaca [facility] [place] 09/18/2021 10:55:59 Imaging Results Imaging Date Name Status LastModified by Organiz [facility] Details LastModified Time 05/26/2021 xr humerus left 2 views minimum completed [address] [facility] [address] [place], [address], 05/26/2021 13:29:40 05/26/2021 XR, shoulder, 2 or more view completed [address] [facility] [address] [place], [address], 05/26/2021 13:29:40 09/18/2021 XR, shoulder completed [email or web address] [facility] [place] [address] [place], [address], 09/18/2021 11:46:23 09/18/2021 XR, humerus completed [email or web address] [facility] [place] [address] [place], [address], 09/18/2021 11:46:24 Procedure Notes None recorded. Medical Equipment None Reported. Allergies Allergen ID Allergen Name Allergen Category Reaction Reaction Severity Criticality Documentation Date Start Date Code Code System Note Provider Name and Address Organization Details Recorded Time 788588 Substance with sulfonami de structure and antibacte rial mechanism of action (substanc e) medicatio n Not available Not available Not available 05/26/2021 49612 8003 SNOMED Ana Laura gloria [facility] [place] 10:56:24 609557 timolol medicatio n Not available Not available Not available 05/26/2021 20042 RxNorm Mally gloria [facility] [place] 10:53:31 993031 hydrocodo ne Not available Not available Not available Not available 05/26/2021 5489 RxNorm Ana Laura gloria [facility] [place] 10:56:48 934830 brimonidi ne medicatio n Not available Not available Not available 09/18/2021 47687 5 RxNorm eye drops Mally gloria [facility] [place] 10:53:22 166148 Sulf-10 medicatio n Not available Not available Not available 08/13/2022 62085 2 RxNorm React ion: Unkno wn, sever ity: Unkno wn Not Available [facility] 01:46:38 Medications Name Sig Start Date [...] Updated DateTime 05/26/2021 162.56 cm 26.6 kg/m2 46109.82 g Ana Laura Fernandez [facility] [place] 05/26/2021 10:56:15 Date Recorded Body height Body mass index (BMI) Body weight Provider Name and Address Organization Details Last Updated DateTime 09/18/2021 162.56 cm 27.8 kg/m2 05405.96 g Mally Apodaca [place] [facility] [place] 09/18/2021 10:55:11 Social History Question Answer Notes LastModified by Organizat ion Details LastModified Time Tobacco Smoking Status Never Smoker Ana Laura gloria [facility] [place] 05/26/2021 10:58:16 What Is Your Level Of [...] Asthma / Shortness of Breath / Sleep Shrimp Trawler Captain ea (please specify) N Pulmonary Embolism N Gynecological HistoryNo gynecological history recorded. Obstetrics History GPAL:G 0 P 0 0 0 0 Immunizations Vaccine Type Date Status Note Provider Nam e and Address Organization Details Recorded Time SARS-COV-2 (COVID-19) vaccine, UNSPECIFIED 01/10/2021 completed Ana Laura Galvanec faizan [facility] [place] 05/26/2021 10:57:54 SARS-COV-2 (COVID-19) vaccine, UNSPECIFIED 02/07/2021 completed Ana Laura gloria DIXIE [facility] [place] 05/26/2021 10:57:58 Past Encounters Encounter ID Performer Location Encounter Start Date Encounter Closed Date Diagnosis/Indication Diagnosis SNOMED-CT Code Diagnosis ICD10 Code Diagnosis Note [id number] IZAIAH GOTTLIEB [facility] Office [address] [address] 05/26/2021 10:04:54 05/29/2021 08:01:09 Localized, primary osteoarthritis of the shoulder region 510187458 M19.012 [id number] RIO MADRIGAL MD [facility] [address] Office [address] [place] [address] 09/18/2021 10:32:52 09/18/2021 11:27:22 Localized, primary osteoarthritis of the shoulder region 611344804 M19.012 Health Concerns Section Related Observation LastModified by Organization Detai ls LastModified Time None Recorded Concern Status LastModified by Organization Details LastModified Time None Recorded Advance Directives Directive None Recorded Payers Insurance Date Sequence Insurance Name Policy Number Policy Harris Covered Member ID Harris Member ID Guarantor Name 09/08/2021 1 [place] [employer] Laura Fuller [id number] Laura Fuller 09/21/2021 2 [place] [id number] Laura Fuller [id number] Laura Fuller Notes Date Note Type Note Provider Name and Address Organization Details Recorded Time 05/26/2021 text/html 70-year-old txdwu-ybkt-qvakxwf t female presents with chief complaint LEFT [...] discuss further treatment options. IZAIAH GOTTLIEB [address] [place], [address], [facility] 05/26/2021 11:58:02 09/18/2021 text/html 71 year old mamta le here for LEFT shoulder pain. She last [...] is {{ 52#}}. RIO MADRIGAL MD [address] [place], [address], [facility] 09/20/2021 10:48:50 OBGyn Episode No OBEpisode recorded.
--- OUTSIDE RECORDS SUMMARY | 2025-04-09 10:12 | XMS_ITS | Patient Health Record ---
Author Organization [facility] Address [address] [place] [address] Care Team Providers Care Provider Engagement Executive Name Role Phone Melvi Napoles MD Primary Care Provider Lu Falk Unavailable [phone] Allergies Allergen (clinical drug ingredient) Drug/Non Drug [...] Are you an other tobacco user? No Plan Of Treatment No Information Insurance Providers Payer Name Payer Address Payer Phone Subscriber Number Group Number Insured Name Patient Relationship to Insured Coverage Start Date Coverage End Date Medicare National Govt Sv[employer] [address] [place] [address] [id number] Laura Fuller Self - patient is the insured Medical (General) History Medical History History ICD Code Anemia Arthritis Back,Hip,and Knee pain Broken bones Glaucoma High blood pressure Kidney disease Psoriasis Warts Measles Mumps Chicken pox Joint implants/screws Headaches/Migraines Surgical History Surgery Date(Month/Year) tonsillectomy 1953 wrist surgery 2017 hip replacement 2019
== END 2025-04-09 11:21 | disposition home or self-care (01) ==
LOC: HO.HMCC 09:48
PROVIDERS: PCP Internal Medicine; Visit Provider Internal Medicine
DX: Z00.00 Encounter for general adult medical examination without abnormal findings (principal); R00.1 Bradycardia, unspecified; E55.9 Vitamin D deficiency, unspecified; M54.30 Sciatica, unspecified side; Z78.0 Asymptomatic menopausal state; Z23 Encounter for immunization

== ENCOUNTER → 2025-04-09 09:47 | Outpatient (BNVA) | payer MEDICARE, SELFPAY | PROVIDERS: PCP Internal Medicine; Visit Provider Internal Medicine | DX: Z00.00 Encounter for general adult medical examination without abnormal findings (principal); Z23 Encounter for immunization; M54.30 Sciatica, unspecified side; R00.1 Bradycardia, unspecified; E55.9 Vitamin D deficiency, unspecified; Z78.0 Asymptomatic menopausal state | CPT/HCPCS: 90471; 90677; 96127 ==

== ENCOUNTER → 2025-04-20 09:37 | Outpatient (REF) | payer MEDICARE, SELFPAY ==
--- OUTSIDE RECORDS SUMMARY | 2025-04-20 10:35 | XMS_ITS | Patient Health Record ---
Author Organization [facility] Address [address] [facility] [place] [address] Care Team Providers Care Sheet Metal Erector Name Role Phone Melvi Napoles MD Primary Care Provider Lu Falk Unavailable [phone] Allergies Allergen (clinical drug ingredient) Drug/Non Drug [...] Medicare National Govt Svcs Inc [address] [place] [address] [id number] Laura Fuller Self - patient is the insured Medical (General) History Medical History History ICD Code Anemia Arthritis Back,Hip,and Knee pain Broken bones Glaucoma High blood pressure Kidney disease Psoriasis Warts Measles Mumps Chicken pox Joint implants/screws Headaches/Migraines Surgical History Surgery Date(Month/Year) tonsillectomy 1953 wrist surgery 2017 hip replacement 2019
--- OUTSIDE RECORDS SUMMARY | 2025-04-20 10:35 | XMS_ITS | Clinical Summary ---
Author Organization [facility] Address [address] [place] [address] Care Team Providers Care Gear Shaper Name Role Phone Unavailable Primary Care Provider Unavailabl e Social History Tobacco Use Types Packs/Day Years Used Date Smoking Tobacco: Never Assessed Sex and Gender Information Value Date Recorded Sex Assigned at Not on file Gender Identity Not on file Sexual Orientation Not on file Plan of Treatment Not on file
--- OUTSIDE RECORDS SUMMARY | 2025-04-20 10:36 | XMS_ITS | Patient Health Record ---
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 Problems Problem Type SNOMED Code ICD Code Onset Dates Problem Status W/U Status Risk Notes Problem 177132966 Colon cancer screening (Z12.11) Active confirmed Problem 202615593 Diverticulosis (K57.90) Active confirmed Problem 218706939 Family history o f colon cancer (Z80.0) Active confirmed Problem 133847944 Long-term use of aspirin therapy (Z79.82) Active confirmed Problem 696307790 Long-term curren t use of high risk medication other than anticoagulant (Z79.899) Active confirmed Plan Of Treatment Future Test Test Name Order Date COLONOSCOPY 06/19/2012 COLONOSCOPY 02/20/2017 COLONOSCOPY 08/27/2022 Insurance Providers Payer Name Payer Address Payer Phone Subscriber Number Group Number Insured Name Patient Relationship to Insured Coverage Start Date Coverage End Date [place]ARE OF [place] [address] [place] [address] [id number] JOYCE YUE Self - patient is the insured MEDEX ATTN CLAIMS [address] [place] [address] [id number] JOYCE YUE Self - patient is the insured Medical (General) History Medical History History ICD Code colonoscopy 04/12/17, negativ e for polyps, five-year followup based on family history glaucoma hypothyroidism hypertension Elevated cholesterol Surgical History Surgery Date(Month/Year) tonsillectomy wrist surgery right hip replacement 09/2016 hip surgery 2020
--- OUTSIDE RECORDS SUMMARY | 2025-04-20 10:36 | XMS_ITS ---
[facility] Address [address] [place] [address] Care Team Providers Care Collaborative Physician Name Role Phone Melvi Napoles MD Primary Care Provider Lu Falk [phone] REASON FOR VISIT formula 7 Encounters Encounter Location Date Provider Diagnosis [facility] [address] [place] [address] 12/25/2023 Lu Frederick Plan Of Treatment No Information Progress Notes * Laura COOKDOB: 8 (73 yo F)Acc No.[id number]:12/25/2023 Patient:?Laura Cook :1950???Age:73 Y???Sex:Female Address:[address] [place] [address] * true * Date:? Generated for Printi ceci/Facoralg/eTransmitting on:?04/20/2025 10:35 AM EDT
--- OUTSIDE RECORDS SUMMARY | 2025-04-20 10:36 | XMS_ITS | Data Portability ---
Author Organization [place] - [facility] [place], [facility] - [facility] Address [address] [place] [address] Care Team Providers Care Anodizing Line Operator Name Role Phone AYDIN GAYLE Primary Care [...] with this plan. This visit is a wyvt-qk-yadr visit during the COVID-19 pandemic. Based on [...] provided today in accordance with [facility] and CDC Guidelines. There was additional practice expense incurred due to the Public Health Emergency. This additional expense includes but is not limited to: - Additional clinical staff and medical technical business analyst time for pre-screening - Time spent reviewing [...] with this appointment. This visit is a zyoy-te-cfhj visit during the COVID-19 pandemic. Based on [...] provided today in accordance with [facility] and CDC Guidelines. There was additional practice expense incurred due to the Public Health Emergency. This additional expense includes but is not limited to: * Additional clinical staff and medical technical business analyst time for pre-screening * Time spent reviewing [...] views minim um Fin al Report EXAM#: [id number] PROCED URE: DXR 0093 XR HUMERU [...] M.D. On: May 26 2021 10:51A [email or web address] [facility] [address], [place], [address], 05/26/2021 13:29:40 05/26/20 21 05/26/2021 XR, shoul nabil, 2 or more view Fin al Report EXAM#: [id number] PROCED URE: DXR 0145 XR SHOULD [...] M.D. On: May 26 2021 10:51A [email or web address] [facility] Rad[facility] [address], [place], [address], 05/26/2021 13:29:40 09/18/2009/18/2021 XR, teresa ferrer http:/ [email or web address] ntegra tionPr ocesso r.aspx ?CMD=O PENSTU DY&ACC ESSION =[id number] [facility] [address], [address], 09/18/2021 11:46:23 09/18/2009/18/2021 jud TEJADA http:/ [email or web address] ntegra tionPr ocesso r.aspx ?CMD=O PENSTU DY&ACC ESSION =[id number] [id number] [facility] [address], [address], 09/18/2021 11:46:24 Result Notes None recorded. Problems Name Problem SNOMED Code Status Onset Date Resolution Date Notes Provider Name and Address Organization Details Recorded Time Localized , primary osteoarth ritis of the shoulder region 310028230 Active 2020 IZAIAH GOTTLIEB [address] [place] [address], [phone] , [facility] - [facility] 11:57:14 History of operation on musculosk eletal system 658796918 Active 2018 History of musculosk eletal operation Not Available [facility] 2 01:04:36 Localized , primary osteoarth ritis of the pelvic region and thigh 248070474 Active 2015 Localized , primary osteoarth ritis of the pelvic region and thigh Loc alized, primary osteoarth ritis of the pelvic region and thigh Not Available [facility] 2 01:04:36 Patient encounter status 868213249 Active 2015 Not Available [facility] 2 01:04:37 History of artificia l joint 849962119 Active 2018 History of artificia l joint Not Available [facility] 2 01:04:37 Trochante wali bursitis of right hip 32503203356 9100 Active 2018 Not Available [facility] 2 01:04:37 Notes:Problem Name: Total hi p replacement Prosthesis Problem Code: 811321317 Problem Code Type: SNOMED Status: Active Start_Date: 11/02/2016 - Problem Notes None recorded. Procedures Surgical History Date Name Laterality Status Provider Name and Address Organization Details Recorded Time 09/01/20 19 Orthopaedic Surgery completed Ana Laura Fernandez [facility] 05/26/2021 10:59:12 09/16/20 17 Orthopaedic Surgery completed Mally Apodaca [facility] 09/18/2021 10:55:34 12/02/19 06 Orthopaedic Surgery completed Mally Apodaca [facility] [place] 09/18/2021 10:55:59 Imaging Results Imaging Date Name Status LastModified by [facility] Details LastModified Time 05/26/2021 xr humerus left 2 views minimum completed [address] Radiology [address] [place], [address], 05/26/2021 13:29:40 05/26/2021 XR, shoulder, 2 or more view completed [address] Radiology [address] [place], [address], 05/26/2021 13:29:40 09/18/2021 XR, shoulder completed [email or web address] [facility] [address] [place], [address], 09/18/2021 11:46:23 09/18/2021 XR, humerus completed [email or web address] [facility] [address] [place], [address], 09/18/2021 11:46:24 Procedure Notes None recorded. Medical Equipment None Reported. Allergies Allergen ID Allergen Name Allergen Category Reaction Reaction Severity Criticality Documentation Date Start Date Code Code System Note Provider Name and Address Organization Details Recorded Time 907932 Substance with sulfonami de structure and antibacte rial mechanism of action (substanc e) medicatio n Not available Not available Not available 05/26/2021 92768 8003 SNOMED Ana Laura gloria [facility] 10:56:24 025598 timolol medicatio n Not available Not available Not available 05/26/2021 14482 RxNorm Mally gloria [facility] 10:53:31 570229 hydrocodo ne Not available Not available Not available Not available 05/26/2021 5489 RxNorm Ana Laura gloria [facility] [place] 10:56:48 920962 brimonidi ne medicatio n Not available Not available Not available 09/18/2021 53355 5 RxNorm eye drops Mally gloria [facility] 10:53:22 471054 Sulf-10 medicatio n Not available Not available Not available 08/13/2022 22707 2 RxNorm React ion: Unkno wn, sever ity: Unkno wn Not Available [facility] 01:46:38 Medications Name Sig Start Date [...] Updated DateTime 05/26/2021 162.56 cm 26.6 kg/m2 45441.82 g Ana Laura Fernandez [place] [facility] 05/26/2021 10:56:15 Date Recorded Body height Body mass index (BMI) Body weight Provider Name and Address Organization Details Last Updated DateTime 09/18/2021 162.56 cm 27.8 kg/m2 84144.96 g Mally Apodaca MA [facility] 09/18/2021 10:55:11 Social History Question Answer Notes LastModified by Organizat ion Details LastModified Time Tobacco Smoking Status Never Smoker Ana Laura gloria [place] [facility] 05/26/2021 10:58:16 Auto Related Injury? No chi Information not available 09/18/2021 What Is Your Level Of Caffeine Consumption? Occasional Information not available 09/18/2021 Have You Had Cortisone? No Information not available 05/26/2021 How Much Tobacco Do You Smoke? No Information not available 09/18/2021 What Types Of Sporting Activities Do You Participate In? Walking Information not available 05/26/2021 Work Related Injury? No Information not available 09/18/2021 Sex: Unknown Functional Status Question Answer Note LastModified by Organizat ion Details LastModified Time What is your level of alcohol consumption? Occasional 1-2/week Information not available 05/26/2021 Do you or have you ever used smokeless tobacco? Never used smokeless tobacco Information not available 05/26/2021 What is your occupation? retired Information not available 05/26/2021 Do you or have you ever used e-cigarettes or vape? Never used electronic cigarettes Information not available 05/26/2021 What is your exercise level? Moderate Information [...] Asthma / Shortness of Breath / Sleep Farm Agent ea (please specify) N Pulmonary Embolism N Gynecological HistoryNo gynecological history recorded. Obstetrics History GPAL:G 0 P 0 0 0 0 Immunizations Vaccine Type Date Status Note Provider Nam e and Address Organization Details Recorded Time SARS-COV-2 (COVID-19) vaccine, UNSPECIFIED 01/10/2021 completed Ana Laura Rebecca faizan [facility] 05/26/2021 10:57:54 SARS-COV-2 (COVID-19) vaccine, UNSPECIFIED 02/07/2021 completed Ana Laura Galvanec faizan DIXIE [facility] 05/26/2021 10:57:58 Past Encounters Encounter ID Performer Location Encounter Start Date Encounter Closed Date Diagnosis/Indication Diagnosis SNOMED-CT Code Diagnosis ICD10 Code Diagnosis Note [id number] IZAIAH GOTTLIEB [facility] Office [address] [address] 05/26/2021 10:04:54 05/29/2021 08:01:09 Localized, primary osteoarthritis of the shoulder region 958450571 M19.012 [id number] RIO MADRIGAL MD [facility] Office [address] [place] [id number] 09/18/2021 10:32:52 09/18/2021 11:27:22 Localized, primary osteoarthritis of the shoulder region 394896137 M19.012 Health Concerns Section Related Observation LastModified by Organization Detai ls LastModified Time None Recorded Concern Status LastModified by Organization Details LastModified Time None Recorded Advance Directives Directive None Recorded Payers Insurance Date Sequence Insurance Name Policy Number Policy Harris Covered Member ID Harris Member ID Guarantor Name 09/08/2021 1 [place] [employer] Laura Fuller [id number] Laura Fuller 09/21/2021 2 [place] [id number] Laura Fuller [id number] Laura Fuller Notes Date Note Type Note Provider Name and Address Organization Details Recorded Time 05/26/2021 text/html 70-year-old kjbyd-izha-iffesim t female presents with chief complaint LEFT [...] discuss further treatment options. IZAIAH GOTTLIEB [address] [place], [address], [facility] 05/26/2021 11:58:02 09/18/2021 text/html 71 year old [...] is {{ 52#}}. RIO MADRIGAL MD [address] [place], [address], [facility] 09/20/2021 10:48:50 OBGyn Episode No OBEpisode recorded.
--- OUTSIDE RECORDS SUMMARY | 2025-04-20 10:36 | XMS_ITS | Clinical Summary ---
Author Organization [facility] Address [address] [place] [address] Phone Care Team Providers Care Clinical Data Management Director Name Role Phone Melvi Napoles MD Primary Care Provider [phone] Social History Tobacco Use Types Packs/Day Years Used Date Smoking Tobacco: Never Assessed Comments Unknown Sex and Gender Information Value Date Recorded Sex Assigned at Not on file Legal Sex Female 2:20 PM EST Gender Identity Not on file Sexual Orientation Not on file Plan of Treatment Health Maintenance Due Date Last Done Comments DTaP,Tdap,and Td Vaccines (1 - Tdap) 1967 Pneumococcal Vaccine: 50+ Ye ars (1 of 1 - PCV) 1998 Zoster Vaccines (1 of 2) 1998 RSV Immunization Adult Patie nts (1 - 1-dose 75+ series) 2023 COVID-19 Vaccine ( - 2023-2 5 season) 2024 Depression Screening 12/25/2024 Falls Risk Assessment 12/25/2024 Hepatitis C Screening 12/25/2024 Medicare Annual Wellness Visit 12/25/2024 Osteoporosis Screening (Bone Density Screening) 12/25/2024 Social Influencers of Health Screening 12/25/2024 Influenza Vaccine (Season Ended) 2025 HIB Vaccines Aged Out No longer eligi ble based on patient's age to complete this topic HPV Vaccines Aged Out No longer eligi ble based on patient's age to complete this topic Hepatitis A Vaccines Aged Out No long er eligible based on patient's age to complete this topic Hepatitis B Vaccines Aged Out No long er eligible based on patient's age to complete this topic IPV Vaccines Aged Out No longer eligi ble based on patient's age to complete this topic MMR Vaccines Aged Out No longer eligi ble based on patient's age to complete this topic Meningococcal ACWY Vaccine Aged Out N o longer eligible based on patient's age to complete this topic Meningococcal B Vaccine Aged Out No l onger eligible based on patient's age to complete this topic RSV Immunization Patients Un nabil 20 months Aged Out No longer eligible b ased on patient's age to complete this topic Varicella Vaccines Aged Out No longer eligible based on patient's age to complete this topic Insurance MEDICARE [facility] Care Teams Clinical Data Management Director Relationship Specialty Start Date End Date Melvi Napoles MD [address] [place] [address] PCP - General Internal Medicine 12/24/24
--- OUTSIDE RECORDS SUMMARY | 2025-04-20 10:36 | XMS_ITS | Encounter Summary ---
Author Organization [employer] [facility] Address [address] [place] [address] Care Team Providers Care Websphere Consultant Name Role Phone Melvi Napoles MD Primary Care Provider [phone] Encounter Details Date Type Department Care Team (Late st Contact Info) Description 12/24/2024 Lab Requisition [facility] - Main Lab [address] [facility] [email or web address] [address] Physician, Pcp Unknown Urinary tract infection, site not specified Social History Tobacco Use Types Packs/Day Years Used Date Smoking Tobacco: Never Assessed Comments Unknown Sex and Gender Information Value Date Recorded Sex Assigned at Not on file Legal Sex Female 2:20 PM EST Gender Identity Not on file Sexual Orientation Not on file documented as of this encounter Plan of Treatment Not on file documented as of this encounter Procedures Procedure Name Priority Date/Time Associated Diagnosis Comments CULTURE URINE Routine 12/24/2024 12:00 AM EST Urinary tract infection, site not specified documented in this encounter Results * (ABNORMAL) Culture urine (12/24/2024 12:00 AM EST) Culture, Urine >100,000 CFU/mL Citrobacter sedlakii(A) DEBBIE 12/26/2024 10:[address] [facility] Comment: This is an edited result. Previous organism was Gram negative bacilli on 12/25/2024 at 0834 EST. Urine Urine specimen obtained by clean catch procedure / Unknown 12/24/2024 12/24/2024 2:41 PM EST Narrative Organism Antibiotic Method Susceptibility Citrobacter sedlakii Amoxicillin/Clavulanate DEBBIE 8 ug/ml: Resistant Citrobacter sedlakii Cefoxitin DEBBIE <=4 ug/ml: Resistant Citrobacter sedlakii Ceftazidime DEBBIE <=0.5 ug/ml: Susceptible Citrobacter sedlakii Ceftriaxone DEBBIE <=0.25 ug/ml: Susceptible Citrobacter sedlakii Cefepime DEBBIE <=0.12 ug/ml: Susceptible Citrobacter sedlakii Meropenem DEBBIE <=0.25 ug/ml: Susceptible Citrobacter sedlakii Amikacin DEBBIE <=1 ug/ml: Susceptible Citrobacter sedlakii Gentamicin DEBBIE <=1 ug/ml: Susceptible Citrobacter sedlakii Ciprofloxacin DEBBIE <=0.06 ug/ml: Susceptible Citrobacter sedlakii Levofloxacin DEBBIE <=0.12 ug/ml: Susceptible Citrobacter sedlakii Nitrofurantoin DEBBIE 32 ug/ml: Susceptible Citrobacter sedlakii Trimethoprim/Sulfamethoxazole DEBBIE <=20 ug/ml: Susceptible us Pcp Unknown Physician LAB MICROBIOLOGY - GENERAL ORDERABLES Final Result [facility] [address] [place] [address], documented in this encounter Visit Diagnoses Diagnosis Urinary tract infection, site not specified documented in this encounter Care Teams Websphere Consultant Relationship Specialty Start Date End Date Melvi Napoles MD [address] [facility] [place] [address] PCP - General Internal Medicine 12/24/24 documented as of this encounter
--- OUTSIDE RECORDS SUMMARY | 2025-04-20 10:36 | XMS_ITS | Encounter Summary ---
Author Organization [employer] Address [address] [place] [address] Care Team Providers Care Sharepoint Developer Name Role Phone Melvi Napoles MD Primary Care Provider [phone] Encounter Details Date Type Department Care Team (Latest Contact Info) Description 12/29/2024 Lab Requisition [facility] - Main Lab [address] [facility] [place] [address] Terence Brown MD [address] [address] Polyglandular hyperfunction (CMS/HCC V24, CMS/HCC V28) Social History Tobacco Use Types Packs/Day Years [...] Procedure Name Priority Date/Time Associated Diagnosis Comments AP OUTSIDE CONSULT Routine 12/23/2024 12 :00 AM EST Polyglandular hyperfunction (CMS/HCC) documented in this encounter Results * Anatomic pathology outside consult (12/23/2024 12:00 AM EST) Final Diagnosis A. Urine, Voided, ([id number]): Negative for high grade urothelial carcinoma. Results of [employer]ion fluorescence in situ hybridization (FISH) testing: CEP3: Normal CEP7: Normal CEP17: Normal LSI 9p21: Normal Interpretation: Normal profile Controls stained appropriately. Note: The results are intended as a screening device and should be interpreted in association with other clinical and pathological findings. 01/08/2025 3:45 PM EST [facility] Clinical Information Benign essential microscopic hematuria R31.1 Urine Cytology/FISH (now) 01/08/2025 3:45 PM [facility] Gross Description A. Urine, Voided, ([id number]): Received one ThinPrep slide for cytology screen and one ThinPrep slide for UroVysion FISH 01/08/2025 3:45 PM [facility] Disclaimer Unless otherwise specified, all tissue is 10% NB formalin fixed and paraffin embedded. Technical pathology services provided by [facility] at [address] [facility] [address], [place] [address] (CLIA #[id number]/Denae Schaffer MD, Tuft Machine Operator) 01/08/2025 3:45 PM [facility] Tissue Urine specimen from urethra / Unknown 12/23/2024 12/29/2024 10:00 AM EST us Terence Brown MD LAB PATHOLOGY ORDERABLES Final R esult [facility] [address] [place] [address], documented in this encounter Visit Diagnoses Diagnosis Polyglandular hyperfunction (CMS/HCC V24, CMS/HCC V28) documented in this encounter Care Teams Sharepoint Developer Relationship Specialty Start Date End Date Melvi Napoles MD [address] [place] [address] PCP - General Internal Medicine 12/24/24 documented as of this encounter
== END ==
LOC: HO.CARD 09:37
PROVIDERS: PCP Internal Medicine; Visit Provider Internal Medicine
DX: R00.1 Bradycardia, unspecified (principal); E53.8 Deficiency of other specified B group vitamins; E55.9 Vitamin D deficiency, unspecified; R73.9 Hyperglycemia, unspecified
CPT/HCPCS: 93225

== ENCOUNTER 2025-05-12 08:45 | Outpatient (REF) | payer MEDICARE, SELFPAY ==
--- NOTE | ~2025-05-12 | MM_ITS ---
EXAMINATION: DXA BONE DENSITY EXTREMITY HISTORY: Z78.0 - Asymptomatic menopausal state TECHNIQUE: [employer]erv Dual energy absorptiometry (DEXA) of the lumbar spine and distal radius was performed. The hips were not evaluated due to a history of bilateral total hip arthroplasty. COMPARISON: Comparison is made with the prior examination dated 07/21/2021. FINDINGS: The bone mineral density of the lumbar spine is 1.266, corresponding to a T-score of 0.7, and a Z-score of 2.2. This is indicative of normal bone mineral density.- This represents a BMD change of 5.7% compared to the prior exam. This is statistically significant. The bone mineral density of the distal radius is 0.652, corresponding to a T-score of -2.6, and a Z-score of -0.1. This is indicative of osteoporosis. This represents a BMD change of -5.9% compared to the prior exam. This is not statistically significant. MM/XR DEXA appendicular skeleton IMPRESSION: Based on bone mineral density, and according to World Health Organization (WHO) criteria, the diagnosis is consistent with osteoporosis. All bone density values are in grams per centimeter squared (g/cm2). Statistically, 68% of repeat scans fall within 1 SD (+/- 0.010 g/cm2 for AP spine L1-L4) and 1 SD (+/- 0.012 g/cm2 for femur total) FRAX is a trademark of the [employer] [place] [facility] Metabolic Bone Disease, a World Health Organization (WHO) Collaborating Center. Electronically signed by: Leon Ford MD 05/12/2025 10:02 AM EDT
--- OUTSIDE RECORDS SUMMARY | 2025-05-12 09:04 | XMS_ITS | Patient Health Record ---
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 Problems Problem Type SNOMED Code ICD Code Onset Dates Problem Status W/U Status Risk Notes Problem 454207455 Colon cancer screening (Z12.11) Active confirmed Problem 226133789 Diverticulosis (K57.90) Active confirmed Problem 911276505 Family history o f colon cancer (Z80.0) Active confirmed Problem 358189053 Long-term use of aspirin therapy (Z79.82) Active confirmed Problem 495472304 Long-term curren t use of high risk medication other than anticoagulant (Z79.899) Active confirmed Plan Of Treatment Future Test Test Name Order Date COLONOSCOPY 06/19/2012 COLONOSCOPY 02/20/2017 COLONOSCOPY 08/27/2022 Insurance Providers Payer Name Payer Address Payer Phone Subscriber Number Group Number Insured Name Patient Relationship to Insured Coverage Start Date Coverage End Date MEDICARE OF [place] [address] [place] [id number] JOYCE YUE Self - patient is the insured MEDEX ATTN CLAIMS [address] [place] [address] [id number] JOYCE YUE Self - patient is the insured Medical (General) History Medical History History ICD Code colonoscopy 04/12/17, negativ e for polyps, five-year followup based on family history glaucoma hypothyroidism hypertension Elevated cholesterol Surgical History Surgery Date(Month/Year) tonsillectomy wrist surgery right hip replacement 09/2016 hip surgery 2020
== END 2025-05-12 08:46 | disposition home or self-care (01) ==
LOC: HO.MAMMO 08:45
PROVIDERS: PCP Internal Medicine; Visit Provider Internal Medicine
DX: Z13.820 Encounter for screening for osteoporosis (principal); Z78.0 Asymptomatic menopausal state
CPT/HCPCS: 77081

== ENCOUNTER → 2025-05-12 08:45 | Outpatient (BNV) | payer MEDICARE, SELFPAY | PROVIDERS: PCP Internal Medicine; Visit Provider Radiology Diagnostic Radiology | DX: E28.39 Other primary ovarian failure (principal) | CPT/HCPCS: 77081 ==

== ENCOUNTER 2025-05-31 09:00 | Outpatient (RCR) | payer MEDICARE, SELFPAY | END 2025-06-29 09:25 | disposition home or self-care (01) | LOC: HO.PTCHIC 09:00 | PROVIDERS: PCP Internal Medicine; Visit Provider Physician Assistant | DX: M75.41 Impingement syndrome of right shoulder (principal); M75.42 Impingement syndrome of left shoulder; Z96.612 Presence of left artificial shoulder joint | CPT/HCPCS: 97110; 97162 ==

== ENCOUNTER 2025-09-03 09:00 | Outpatient (RCR) | payer MEDICARE, SELFPAY ==
--- NOTE | 2025-07-27 12:58 | MHC.PT.EP ---
[facility] [place] Office [place] Office [place] [facility] [address] Analilia Smith [address] [phone] F: [phone] F: [phone] F: [phone] F: [phone] Physical Therapy Plan of Care Date of Evaluation: 07/27/25 Date of Surgery: Diagnosis: This is a 75 yo female presenting to skilled PT with a script for sciatica. Assessment: Pain has been ongoing for over a year now, no noted injury but reports that she has a bad back. She has had no treatment for this yet via any other specialty. Pain is located R side low back, buttock, lateral thigh and runs anterior lower leg. Pain is sharp and dull. She has good days and bad days. Occasional foot symptoms B are noted as well (stiffness at ball of foot). Pain improves with walking. Pain increases with sitting, laying down or standing >30 mins. Denies numbness and tingling in the limb or bowel and bladder changes. Assessment reveals pain that ranges from up to a 8/10 at the worst. Patient demos decreased lumbar and thoracic ROM, strength of B gluts, core and back, TTP at R side PSIS, lumbar soft tissues, decreased gait pattern with impaired sacral/hip movement and impaired posture with forward head, decreased lumbar lordosis, scoliosis, and rounded shoulders. Based on functional limitations, impaired QOL and pain tolerance patient is a good candidate for skilled PT 2x/wk for 4wks. Frequency and Duration: The patient will be seen 2x/wk for 4 wks Short Term Goals: Pt will demonstrate improved postural awareness and understanding of core engagement with supine and standing tasks without cues throughout session to improve overall back safety in 2 weeks. Pt will demonstrate centralization of sx in 2 weeks. Pt will continue to reinforce precautions, sitting, standing and ADL modifications with proper body mechanics in 2 wks. Commercial Pilot Goals: Pt will demonstrate improved outcome measure by 5 points in 4 weeks for improved functional mobility. Pt will demonstrate ability to bend and lift WNL min to no pain for household tasks in 4 wks. Pt will be I in HEP and compliant in 4wks Pt will return to hobbies without increase in pain in 4wks Treatment Plan: Modalities to reduce pain, spasms and effusion. Manual therapy to restore motion and function. Therapeutic exercise to improve strength and flexibility. Neuromuscular re-education for posture and balance. Therapeutic activities to return to functional activities of daily living. Electronically signed by: Constance Rogers PT Please sign and return to therapist. Thank you for your referral.
--- NOTE | 2025-09-03 12:16 | MHC.PT.DC ---
[facility] [place] Office [place] Office [place] Office [address] Analilia Smith 140 [facility] [phone] F: [phone] F: [phone] F: [phone] F: [phone] Physical Therapy Discharge Report Diagnosis: This is a 75 yo female presenting to skilled PT with a script for sciatica. Date of Surgery: Date of Evaluation: 07/27/25 Date of Discharge: 09/03/25 Treatments to Date: 9 Cancellations to Date: 0 No Shows to Date: 0 Discharge Status: Achieved Goals Improved Function Independent with HEP Patient Elected to Stop Discharge Summary: Patient has come to 9 sessions of PT. She has improved her ROM, strength, gait and pain overall. She has learned an HEP that is helpful for when she does get symptoms. The patient was also educated on a heel lift that she uses daily and assists with her pain. She is leaving for a month but has plans for another total shoulder in the Spring. DC to HEP. Electronically signed by: Constance Rogers PT Please sign and return to therapist. Thank you for your referral.
== END 2025-09-03 12:16 | disposition home or self-care (01) ==
LOC: HO.PTCHIC 09:00
PROVIDERS: PCP Internal Medicine; Visit Provider Internal Medicine
DX: M54.30 Sciatica, unspecified side (principal)
CPT/HCPCS: 97110; 97140; 97162

== ENCOUNTER 2025-11-04 09:42 | Outpatient (REF) | payer MEDICARE, SELFPAY ==
--- NOTE | ~2025-11-04 | XR_ITS ---
EXAMINATION: XR CHEST CLINICAL INFORMATION: R05.3 - Chronic cough COMPARISON: X-ray 09/01/2021 TECHNIQUE: 2 views of the chest were obtained. FINDINGS: The cardiomediastinal silhouette is within normal limits. The lungs are well expanded. There is no focal consolidation, edema, or effusion. Mild bronchial wall thickening. No pneumothorax. Right shoulder arthroplasty. Thoracolumbar spondylosis.. XR/XR chest 2V IMPRESSION: Mild bronchial wall thickening can be seen with small airway disease. Electronically signed by: Armani Sin MD 11/04/2025 03:36 PM EST
[2025-11-04 13:02] LABS: MANUAL DIFF FLAG NO
[2025-11-04 13:07] LABS: Hematocrit 38.2 % (37.0-47.0); Hemoglobin 12.8 g/dl (12.0-16.0); Imm Gran Abs Auto 0.01 X10*3/uL (0.00-0.03); Imm Gran Pct Auto 0.2 % (0.0-0.4); Lymphocytes Absolute Auto 1.8 X10*3/uL (1.2-4.9); Mean Corpuscular HGB Conc 33.5 g/dl (31.0-35.0); Mean Corpuscular Hemoglobin 31.7 pg (27.0-33.0); Mean Corpuscular Volume 94.6 fL (80.0-98.0); NRBC Abs Auto 0.000 X10*3/uL (0.0-0.012); NRBC Pct Auto 0.0 /100WBC (0.0-0.2); Platelet Count 227 X10*3/uL (160-400); Red Blood Count 4.04 X10*6/uL (4.20-5.50); White Blood Count 4.6 X10*3/uL (4.8-10.8)
[2025-11-04 13:22] LABS: Alanine Aminotransferase 16 U/L (0-31); Albumin Level 4.3 g/dL (3.5-5.0); Alkaline Phosphatase 85 U/L (39-117); Anion Gap 12 (12-20); Aspartate Amino Transferase 30 U/L (5-31); Blood Urea Nitrogen 20 mg/dL (9-16); Calcium 9.5 mg/dL (8.4-10.2); Carbon Dioxide 25 mmol/L (22-29); Chloride 105 mmol/L (96-108); Cholesterol 184 mg/dL (<200); Estimated Glomerular Filt Rate > 60; HDL Cholesterol 63 mg/dL (>40); Potassium 4.2 mmol/L (3.3-5.1); Sodium 138 mmol/L (135-145); Total Protein 8.0 g/dL (6.5-8.0); Triglycerides 35 mg/dL (<150)
== END 2025-11-04 09:43 | disposition home or self-care (01) ==
LOC: HO.HMGCX 09:42
PROVIDERS: PCP Internal Medicine; Visit Provider Internal Medicine
DX: R05.3 Chronic cough (principal); E55.9 Vitamin D deficiency, unspecified; E78.5 Hyperlipidemia, unspecified; E03.9 Hypothyroidism, unspecified; K21.9 Gastro-esophageal reflux disease without esophagitis; Z79.899 Other long term (current) drug therapy; Z13.39 Encounter for screening examination for other mental health and behavioral disorders; E53.8 Deficiency of other specified B group vitamins; R73.9 Hyperglycemia, unspecified; Z00.00 Encounter for general adult medical examination without abnormal findings
CPT/HCPCS: 36415; 71046; 80053; 80061; 82306; 84443; 85025; 99212

== ENCOUNTER 2025-11-04 09:42 | Outpatient (AMB) | payer MEDICARE, SELFPAY ==
[2025-11-04 09:46] VITALS: BP 100/66; PULSE 67; RESP 17; TEMP 36.7; O2SAT 95; BMI 28.2
--- NOTE | 2025-11-04 09:46 | A.OFFPC_ITS ---
Vital Signs 11/04/25 09:46 Height 5 ft 3 in Weight 159 lb BMI 28.2 BP 100/66 Blood Pressure Location Lt brachial Position Sitting Respiration 17 Pulse 67 Pulse Source Pulse Oximeter Temp 98.0 F Temp Source Oral Pulse Oximetry (%) 95 Oxygen Delivery Method Room Air Intake Visit Reasons: cough x 1 year Intake Note: Pt is here today for a sick visit. Pt c/o dry cough for a year now. Allergies brimonidine Allergy (Unknown, Verified 11/04/25 09:49) excessive sleepiness oxycodone Allergy (Unknown, Verified 11/04/25 09:49) nausea, hallucinations Sulfa (Sulfonamide Antibiotics) (SULFA (SULFONAMIDE ANTIBIOTICS)) Allergy (Unknown, Verified 11/04/25 09:49) HIVES timolol Allergy (Unknown, Verified 11/04/25 09:49) lowers blood pressure to dangeous levels Medication List - Last Reconciled 11/04/25 by Melvi Napoles MD cholecalciferol (vitamin D3) 10 mcg PO DAILY cyclosporine 0.05% (Restasis) 1 drp ophthalmic (eye) Q12H levothyroxine 50 mcg PO DAILY omega-3 fatty acids 1,000 mg PO DAILY omeprazole 40 mg PO DAILY simvastatin 20 mg PO BEDTIME Tobacco use date assessed: 11/04/25 Fall risk assessment: No Falls in past year Last assessed Fall Risk: 11/04/25 Dental Screening Dental Screen Date: 11/04/25 Did you have a dental visit in the last 12 months?: Yes Did you have a dental problem in the last 6 months where you did not have access to dental care?: No Was dental information given to patient?: Patient has dentist HPI cough x 1 year HPI Details Pt c/o persistent cough for 1 year when exposed to cold air, eating cold foods or drinking cold water. Patient denies sputum production shortness or breath PND orthopnea wheezing fever chills pleurisy postnasal drip chronic GERD. PFSH Medical History (Updated 11/04/25 @ 15:33 by Mlevi Napoles MD) Vitamin D deficiency HTN (hypertension) Glaucoma Recurrent UTI Subcutaneous cyst Postmenopausal Hyperlipidemia Osteopenia Normal colonoscopy Mammogram normal OA (osteoarthritis) of shoulder Annual physical exam Hypothyroidism Surgical History (Updated 11/04/25 @ 09:52 by BECKI Guillermo) Hx of shoulder surgery H/O colonoscopy S/P wrist surgery S/P bilateral hip replacements Family History Mother Mental health disorder Sister Mental health disorder Sister Mental health disorder Sister Mental health disorder Sister Mental health disorder Social History Housing: House Patient Tobacco Use Status: Never used Tobacco e-Cigarette/Vaping Use: Never Used Second Hand Smoke Exposure: No service: No Current occupational status: retired Cognitive needs: No Hearing needs: No Vision needs: Yes Questionnaire Thrive Questionnaire Date Thrive assessed: 11/01/25 I am a: Patient What is your living situation today?: I have a steady place to live Within the past 12 months, did the food you bought not last and you didn't have the money to get more?: Never true Within the past 12 months, did you worry whether your food would run out before you got money to buy more?: Never true Do you have trouble paying for medicines?: No Do you have trouble getting transportation to medical appointments?: No Do you have trouble paying your heating and electricity bill?: No Do you have trouble taking care of your child, family member or friend?: No Do you have trouble with day-to-day activities such as bathing, preparing meals, shopping, managing finances, etc.?: No Are you currently unemployed and looking for a job?: No Are you interested in more education?: No Please select the resources that you would like help with: None Currently or been in a relationship where the following occur: No concerns reported THRIVE Score: 0 AUDIT C Alcohol Use Questionnaire (AUDIT-C) 1. How often do you have a drink containing alcohol?: Monthly or less 2. How many drinks containing alcohol do you have on a typical day when you are drinking?: 5 or 6 3. How often do you have six or more drinks on one occasion?: Never Total Score: 3 NIKA-7 AMB Questionnaire NIKA-7 Date NIKA - 7 assessed: 09/17/24 Feeling nervous, anxious, or on edge: 0 = Not at all Not being able to stop or control worryin = Not at all Worrying too much about different things: 0 = Not at all Trouble relaxin = Not at all Being so restless that it is hard to sit still: 0 = Not at all Becoming easily annoyed or irritable: 0 = Not at all Feeling afraid as if something awful might happen: 0 = Not at all Total NIKA-7 score (0-4 normal; 5-9 mild; 10-14 moderate; 15-21 severe): 0 Source: Developed by Drs. Leon Rangel, Ame Guzman, Jose Maria Moore and colleagues, with an educational ravi from [employer]. Review of Systems Const All systems reviewed & are unremarkable except as noted in HPI and below Eyes Reports no additional complaints ENT Reports no additional complaints Card Reports no additional complaints Resp Reports no additional complaints GI Reports no additional complaints Reports no additional complaints Physical exam (Primary Care) Vital Signs: Last Vital Signs Temp 98.0 F 11/04/25 09:46 Pulse 67 11/04/25 09:46 Resp 17 11/04/25 09:46 BP 100/66 11/04/25 09:46 Pulse Ox 95 11/04/25 09:46 Oxygen Delivery Method Room Air 11/04/25 09:46 BMI result Body Mass Index 28.2 Tobacco/Smoking Status: Tobacco use Status Tobacco use date assessed 11/04/25 11/04/25 09:53 Patient Tobacco Use Status Never used Tobacco 11/04/25 09:53 e-Cigarette/Vaping Use Never Used 11/04/25 09:53 Thrive Assessment: Date of Thrive Assessment Date Thrive assessed 11/01/25 11/04/25 09:53 Currently or been in a relationship where the following occur: No concerns reported Const General: no acute distress HENMT Head: Yes normal to inspection Ears: TM's normal bilaterally Mouth: oropharynx normal Throat: Yes posterior oropharynx normal Eyes General: appearance normal, both eyes and all related structures Neck Neck: Yes no lymphadenopathy and Yes supple Resp Effort & Inspection: normal respiratory effort Auscultation: clear to auscultation bilaterally Cardio Rhythm: regular rhythm Heart sounds: S1 normal heart sound present and S2 normal heart sound present GI Inspection: Yes normal to inspection Palpation (GI): Soft to palpation Percussion: Yes normal to percussion Auscultation: normal bowel sounds Coding Level of Care Code Est Pt Level 4 (24029) Diagnoses Chronic cough R05.3 Vitamin D deficiency E55.9 Hyperlipidemia E78.5 Hypothyroidism E03.9 GERD (gastroesophageal reflux disease) K21.9 Assessment & Plan Assessment & Plan (1) Chronic cough: Code(s): R05.3 - Chronic cough Category: Medical Plan: For chronic cough obtain chest x-ray and PFTs to rule out asthma COPD. Trial of Wixela 100/50 mcg twice a day for 2 weeks we will be started patient was advised to take antihistamine for intermittent postnasal drip and seasonal allergies. (2) Vitamin D deficiency: Code(s): E55.9 - Vitamin D deficiency, unspecified Category: Medical Plan: Continue vitamin-D (3) Hyperlipidemia: Code(s): E78.5 - Hyperlipidemia, unspecified Category: Medical Plan: Continue statin (4) Hypothyroidism: Code(s): E03.9 - Hypothyroidism, unspecified Category: Medical Plan: Continue Levothyroxine (5) GERD (gastroesophageal reflux disease): Code(s): K21.9 - Gastro-esophageal reflux disease without esophagitis Category: Medical Plan: Continue anti GERD diet and PPI Orders: Orders Vitamin D 25-OH Total Today E55.9 - Vitamin D deficiency, unspecified XR chest 2V Today R05.3 - Chronic cough PFT pulmonary function test Today R05.3 - Chronic cough Medications: New fluticasone propion-salmeterol 100-50 mcg/dose (Wixela Inhub) 1 inh inhalation BID 60 ea 2RF
--- OUTSIDE RECORDS SUMMARY | 2025-11-04 11:13 | XMS_ITS | Encounter Summary ---
Author Organization [facility] Address [address] [place] [id number] Phone Care Team Providers Care Oxygen Therapy Technician Name Role Phone Melvi Napoles MD Primary Care Provider [phone] Reason for Visit * Reason Comments Med Change Request Encounter Details Date Type Department Care Team (Late st Contact Info) Description 10/18/2023 Refill [facility] [place] [address] [place] [address] Rivka Frazier MD, PhD [address] [place] [address] [email or web address] Med Change Request Social History Tobacco Use Types Packs/Day Years Used Date Smoking Tobacco: Never Smokeless Tobacco: Never Alcohol Use Standard Drinks/Week Comments Yes 0 (1 standard drink = 0.6 oz pur e alcohol) social Education Answer Date Recorded Are you interested in more education? Not on jyoti e 03/29/2023 Are you concerned about learning? Not on file 03/29/2023 No 03/29/2023 No 03/29/2023 Digital Access Answer Date Recorded No 04/27/2023 No 04/27/2023 No 04/27/2023 Reliable internet access at home? Not on file 04/27/2023 Device with a working camera? Not on file Comments Unknown Sex and Gender Information Value Date Recorded Sex Assigned at Not on file Legal Sex Female 10:05 PM EDT Gender Identity Not on file Sexual Orientation Not on file documented as of this encounter Plan of Treatment Upcoming Encounters Date Type Department Care Team (Late st Contact Info) Description 03/24/2026 1:45 PM EDT Office Visit [facility] [place] [address] [place] [address] Rivka Frazier MD, PhD [address] [place] [address] [email or web address] documented as of this encounter Visit Diagnoses Not on filedocumented in this encounter Care Teams Oxygen Therapy Technician Relationship Specialty Start Date End Date Melvi Napoles MD [address] [place] [id number] PCP - General Internal Medicine 04/04/22 documented as of this encounter Additional Source Comments The information contained in this document represents components of the legal health record. It is not the complete legal health record.[facility]
--- OUTSIDE RECORDS SUMMARY | 2025-11-04 11:13 | XMS_ITS | Patient Health Record ---
Author Organization [facility] Address [address] [place] [id number] Care Team Providers Care Health Advocate Name Role Phone Melvi Napoles MD Primary Care Provider Rick Couch Jr Unavailable Allergies Allergen (clinical drug ingredient) Drug/Non Drug Allergy documented on EMR Reaction Allergy Type Onset Date Status Timolol Unknown Drug Allergy Active Sulfa Unknown Drug Allergy Active Reason For Referral No Information Medications Medication SIG (Take, Route, Frequency, Duration) Notes Start Date End Date Status MiraLax (colon prep) 17 GM/SCOOP Powder mixed with Gatorade or Crystal Light Orally begin at 5:00 p.m. the day before the procedure; Duration: 1 day 08/27/2022 Active Simvastatin 20 MG Tablet 1 tablet in the evening Orally Once a day Active Levothyroxine Sodium 50 MCG Capsule 1 capsule Orally Once a day Active Latanoprost 0.005 % Solution 1 drop into affected eye in the evening Ophthalmic Once a day Active Omeprazole 40 MG Capsule Delayed Release 1 capsule Orally Once a day Active Multi Vitamin/Minerals 1 Tablet 1 Orally QD Active Brimonidine Tartrate 0.2 % Solution 1 drop into affected eye Ophthalmic Three times a day Active Probiotic 1 Tablet Delayed Release 1 Orally QD Active Immunizations Vaccine Route Administration Date Status Comme nts Influenza Unknown 10/18/2021 Administered Social History Social History Drugs/Alcohol: Social Info Question Answer Notes Alcohol Screen Did you have a drink containing alcohol in the past year? Yes How often did you have a drink containing alcohol in the past year? Monthly or less (1 point) How many drinks did you have on a typical day when you were drinking in the past year? 1 or 2 drinks (0 point) How often did you have 6 or more drinks on one occasion in the past year? 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 Problems Problem Type SNOMED Code ICD Code Onset Dates Problem Status W/U Status Risk Notes Problem Colon cancer screening (181115168) Colon cancer screening (Z12.11) Active confirmed Problem Diverticular disease of colon (428868101) Diverticulosis (K57.90) Active confirmed Problem Family History of Cancer of Colon (Situation) (233952518) Family history of colon cancer (Z80.0) Active confirmed Problem Long-term current use of antiplatelet drug (855142700489248 ) Long-term use of aspirin therapy (Z79.82) Active confirmed Problem Long-term current use of drug therapy (980924683) Long-term current use of high risk medication other than anticoagulant (Z79.899) Active confirmed Plan Of Treatment Future Test Test Name Order Date COLONOSCOPY 06/19/2012 COLONOSCOPY 02/20/2017 COLONOSCOPY 08/27/2022 Insurance Providers Payer Name Payer Address Payer Phone Subscriber Number Group Number Insured Name Patient Relationship to Insured Coverage Start Date Coverage End Date MEDICARE OF [place] [address] [place] [address] [id number] YUE COOK Self - patient is the insured [employer] ATTN CLAIMS [address] [place] [address] [id number] YUE COOK Self - patient is the insured Medical (General) History Medical History History ICD Code colonoscopy 04/12/17, negativ e for polyps, five-year followup based on family history glaucoma hypothyroidism hypertension Elevated cholesterol Surgical History Surgery Date(Month/Year) tonsillectomy wrist surgery right hip replacement 09/2016 hip surgery 2020
--- OUTSIDE RECORDS SUMMARY | 2025-11-04 11:13 | XMS_ITS | Encounter Summary ---
Author Organization [facility] Address [address] [place] [address] Care Team Providers Care Travel Trailer Components Assembler Name Role Phone Melvi Napoles MD Primary Care Provider [phone] Encounter Details Date Type Department Care Team (Late st Contact Info) Description 12/24/2024 Lab Requisition [facility] [address] [place] [address] Physician, Pcp Unknown Urinary tract [...] Citrobacter sedlakii(A) DEBBIE 12/26/2024 10:09 AM EST [facility] Comment: This is an edited [...] LAB MICROBIOLOGY - GENERAL ORDERABLES Final Result [facility] [address] [place] [address], documented in this encounter Visit Diagnoses Diagnosis Urinary tract infection, site not specified documented in this encounter Care Teams Travel Trailer Components Assembler Relationship Specialty Start Date End Date Melvi Napoles MD [address] [facility] [place] [address] PCP - General Internal Medicine 12/24/24 documented as of this encounter
--- OUTSIDE RECORDS SUMMARY | 2025-11-04 11:13 | XMS_ITS | Clinical Summary ---
Author Organization [facility] Address [address] [place] [address] Phone Care Team Providers Care Book Binder Name Role Phone Melvi Napoles MD Primary Care Provider [phone] Allergies Active Allergy Reactions Criticality Noted Date Comments Brimonidine 05/13/2019 Oxycodone 12/17/2019 Sulfa (Sulfonamide Antibiotics) 04/02 Timolol Hypotension 05/13/2019 Medications simvastatin (ZOCOR) 20 MG tablet Take 20 mg by mouth nightly at bedtime. Active levothyroxine (SYNTHROID, LEVOTHROID) 50 MCG tablet Take 50 mcg by mouth every morning. Active omeprazole (PRILOSEC) 40 MG capsule Take 40 mg by mouth 2 (two) times a day as needed. Active lactobacillus rhamnosus GG-inulin (CULTURELLE PROBIOTIC) 10 billion cell -200 mg CpSP Take 200 mg by mouth daily. Active multivitamin Liqd Take 5 mL by mouth daily. Active ascorbic acid, vitamin C, (VITAMIN C) 250 mg Chew Take by mouth daily. Active cholecalciferol (VITAMIN D3) 50,000 unit tablet Take by mouth once a week. Active Medication-Free TextIndications :roclatan Qhs OU Indications: roclatan Qhs OU Active netarsudiL-pham noprost (ROCKLATAN) 0.02-0.005 % Drop Place 1 drop into each eye nightly at bedtime. 5 bottles to last 90 days 12.5 mL 3 12/14/2024 Active brimonidine (ALPHAGAN P) 0.1 % Drop Place 1 drop into each eye 2 (two) times a day. 90 day supply 30 mL 3 05/06/2025 Active Active Problems No known active problems Encounters Date Type Department Care Team Description 10/21/2025 10:15 AM EST Office Visit [facility] [place] [address] [place] [address] Rivka Frazier MD, PhD Normal tension glaucoma of both eyes, severe stage (Primary Dx) from Last 3 Months Family History Medical History Relation Comments Glaucoma Brother Cataracts Father Glaucoma Father Cataracts Mother Glaucoma Mother Diabetes Paternal Grandmother Diabetes Sister Glaucoma Sister Retinal degeneration Sister Relation Status Comments Brother Father Mother Paternal Grandmother Sister Social History Tobacco Use Types Packs/Day Years [...] on file Sexual Orientation Not on file Last Filed Vital Signs Vital Sign Reading Time Taken Comments Blood Pressure 108/65 05/20/2019 12:41 PM EDT Pulse 50 05/20/2019 12:41 PM EDT Temperature 36.3 C (97.3 F) 04/24/2019 11:29 AM EDT Respiratory Rate 18 04/24/2019 11:29 AM EDT Oxygen Saturation 97% 04/24/2019 11:29 AM EDT Inhaled Oxygen Concentration - - Weight 72.6 kg (160 lb) 04/24/2019 11:29 AM EDT Height 160 cm (5' 3 ) 04/24/2019 11:29 AM EDT Body Mass Index 28.34 04/24/2019 11:29 AM EDT Plan of Treatment Upcoming Encounters Date Type Department Care Team (Late st Contact Info) Description 03/24/2026 1:45 PM EDT Office Visit [facility] [place] [address] [place] [address] Rivka Frazier MD, PhD [address] [place] [address] [email or web address] Health Maintenance Due Date Last Done Comments Adult Td,Tdap Booster 1948 LIPID PANEL 1948 TSH LEVEL 1948 DEPRESSION SCREENING 1960 HEPATITIS C SCREENING 1966 PNEUMOCOCCAL VACCINES (50+ years) (1 of 1 - PCV) 1998 ZOSTER VACCINES (1 of 2) 1998 OSTEOPOROSIS SCREENING INITIAL (ONE-TIME) 2013 RSV VACCINE (1 - 1-dose 75+ series) 2023 INFLUENZA VACCINE (#1) 2025 11/09/2020 COVID-19 VACCINE ( season) 2025 02/07/2021, 02/07/2021, 01/10/2021, Additional history exists SMOKING STATUS SCREENING (Once After 26 Yrs) Completed 12/08/2020 HEPATITIS A VACCINES Aged Out No long er eligible based on patient's age to complete this topic HIB VACCINES Aged Out No longer eligi ble based on patient's age to complete this topic MENINGOCOCCAL VACCINES (ACWY) Aged Out No longer eligible based on patient's age to complete this topic MENINGOCOCCAL VACCINES (B) Aged Out N o longer eligible based on patient's age to complete this topic Medical Devices Not on file Procedures Procedure Name Priority Date/Time Associated Diagnosis Comments PRIDE VISUAL FIELD - OS - LEFT EYE Routine 10/21/2025 11:10 AM EST Normal tension glaucoma of both eyes, severe stage PRIDE VISUAL FIELD - OD - RIGHT EYE Routine 10/21/2025 11:10 AM EST Normal tension glaucoma of both eyes, severe stage from Last 3 Months Results * Pride Visual Field - OS - Left Eye (10/21/2025 11:10 AM EST) Anatomical Region Laterality Modality Head Visual Field Narrative 10/21/2025 12:31 PM EST Findings: Superior paracentral defect, Inferior paracentral defect. Testing performed by: [email or web address] Rivka Frazier MD, PhD OPHTHALMOLOGY IMAGING Fin al Result * Pride Visual Field - OD - Right Eye (10/21/2025 11:10 AM EST) Anatomical Region Laterality Modality Head Visual Field Narrative 10/21/2025 12:31 PM EST Findings: Inferior arcuate defect. Testing performed by: [facility] Rivka Frazier MD, PhD OPHTHALMOLOGY IMAGING Fin al Result from Last 3 Months Insurance [employer] MEDEX SUPPLEMENT MEDICARE PART A & B [employer] MEDEX SUPPLEMENT MEDICARE PART A & B [employer] MEDEX SUPPLEMENT MEDICARE PART A & B [employer] MEDEX SUPPLEMENT MEDICARE PART A & B [employer] MEDEX SUPPLEMENT MEDICARE PART A & B [employer] MEDEX SUPPLEMENT MEDICARE PART A & B [employer] MEDEX SUPPLEMENT MEDICARE PART A & B [employer] MEDEX SUPPLEMENT MEDICARE PART A & B [employer] MEDEX SUPPLEMENT MEDICARE PART A & B Care Teams Book Binder Relationship Specialty Start Date End Date Melvi Napoles MD [address] [place] [id number] PCP - General Internal Medicine 04/04/22 Additional Source Comments The information contained in this document represents components of the legal health record. It is not the complete legal health record.[facility]
--- OUTSIDE RECORDS SUMMARY | 2025-11-04 11:13 | XMS_ITS | Patient Health Record ---
Author Organization [facility] amy [facility] Address [address] [facility] [place] [address] Care Team Providers Care Exchange Architect Name Role Phone Melvi Naploes MD Primary Care Provider Lu Falk Unavailable [phone] Allergies Allergen (clinical drug ingredient) Drug/Non Drug Allergy documented on EMR Reaction Allergy Type Onset Date Status sulfamethoxazole / trimethoprim Bactrim Unknown Drug Allergy Active codeine Codeine Unknown Drug Allergy Active Reason For Referral No Information Medications Medication SIG (Take, Route, Frequency, Duration) Notes Start Date End Date Status Levothyroxine Sodium 50 MCG Oral; Duration: 90 Days Active Rocklatan 0.02-0.005 % Ophthalmic; Durat ion: 90 Days Active Alphagan P 0.1 % Ophthalmic; Duration : 90 Days Active Omeprazole 40 MG Oral; Duration: 90 Days Active Simvastatin 20 MG Oral; Duration: 90 Days Active Multivitamin 06/28/2023 Active Social [...] Medicare National [employer] [address] [place] [address] [phone] [id number] Laura Fuller Self - patient is the insured Medical (General) History Medical History History ICD Code Anemia Arthritis Back,Hip,and Knee pain Broken bones Glaucoma High blood pressure Kidney disease Psoriasis Warts Measles Mumps Chicken pox Joint implants/screws Headaches/Migraines Surgical History Surgery Date(Month/Year) tonsillectomy 1953 wrist surgery 2017 hip replacement 2019
--- OUTSIDE RECORDS SUMMARY | 2025-11-04 11:13 | XMS_ITS | Encounter Summary ---
Author Organization [facility] Address [address] [place] [address] Phone Care Team Providers Care Glaucoma Specialist Name Role Phone Melvi Napoles MD Primary Care Provider [phone] Encounter Details Date Type Department Care Team (Late Contact Info) Description 07/29/2024 Procedure Pass [facility] DEPT [address] [place] [address] Social History Tobacco Use Types Packs/Day Years [...] Encounters Date Type Department Care Team (Late Contact Info) Description 03/24/2026 1:45 PM EDT Office Visit [facility] [place] [address] Rivka Frazier MD, PhD [address] [place] [address] [email or web address] documented as of this encounter Visit Diagnoses Not on filedocumented in this encounter Care Teams Glaucoma Specialist Relationship Specialty Start Date End Date Melvi Napoles MD [address] [place] [address] PCP - General Internal Medicine 04/04/22 documented as of this encounter Additional Source Comments The information contained in this document represents components of the legal health record. It is not the complete legal health record.[facility]
--- OUTSIDE RECORDS SUMMARY | 2025-11-04 11:13 | XMS_ITS | Clinical Summary ---
Author Organization [facility] Address [address] [place] [address] Phone Care Team Providers Care Punch Hand Name Role Phone Melvi Napoles MD Primary Care Provider [phone] Social History Tobacco Use Types Packs/Day Years [...] nts (1 - 1-dose 75+ series) 2023 Depression Screening 12/02/2024 Falls Risk Assessment 12/25/2024 Hepatitis C Screening 12/25/2024 Medicare Annual Wellness Visit 12/25/2024 Osteoporosis Screening (Bone Density Screening) 12/25/2024 Social Influencers of Health Screening 12/25/2024 COVID-19 Vaccine (1 - 2024-2 6 season) 2025 Influenza Vaccine (#1) 2025 HIB Vaccines Aged Out No longer [...] age to complete this topic Insurance MEDICARE Member Subscriber Plan / Payer (Ef fective 2024-Present) Name:Laura Fuller Member ID:[id number] Relation to Subscriber:Self Name:Laura Fuller Subscriber ID:[id number] Payer ID:Not on file Group ID:Not on file Type:Medicare Address: [id number] MEDICARE Member Subscriber Plan / Payer (Ef fective 2025-Present) Name:Laura Fuller Member ID:Not on file Relation to Subscriber:Self Name:Laura Fuller Subscriber ID:[id number] Payer ID:Not on file Group ID:Not on file Type:Medicare Address: [address] Care Teams Punch Hand Relationship Specialty Start Date End Date Melvi Napoles MD [address] [place] [address] PCP - General Internal Medicine 12/24/24
--- OUTSIDE RECORDS SUMMARY | 2025-11-04 11:13 | XMS_ITS | Encounter Summary ---
Author Organization [facility] Address [address] [place] [address] Phone Care Team Providers Care Roustabout Supervisor Name Role Phone Melvi Napoles MD Primary Care Provider [phone] Melvi Napoles MD Primary Care Provider [phone] Encounter Details Date Type Department Care Team (Late st Contact Info) Description 04/24/2019 Ophth Exam [facility] [address] [place] [address] Nimo Smith MD [address] [place] [address], [address] [address] [email or web address] Social History Tobacco Use Types Packs/Day Years Used Date Smoking Tobacco: Never Smokeless Tobacco: Never Alcohol Use Standard Drinks/Week Comments Yes 0 (1 standard drink = 0.6 oz pur e alcohol) social Comments Unknown Sex and Gender Information Value Date Recorded Sex Assigned at Not on file Legal Sex Female 10:05 PM EDT Gender Identity Not on file Sexual Orientation Not on file documented as of this encounter Plan of Treatment Upcoming Encounters Date Type Department Care Team (Late st Contact Info) Description 03/24/2026 1:45 PM EDT Office Visit [facility] [place] [address] [place] [address] Rivka Frazier MD, PhD [address] [place] [address] [email or web address] documented as of this encounter Visit Diagnoses Not on filedocumented in this encounter Care Teams Roustabout Supervisor Relationship Specialty Start Date End Date Melvi Napoles MD [address] [place] [address] PCP - General Internal Medicine 04/08/19 04/03/22 Melvi Napoles MD [address] [place] [address] PCP - General Internal Medicine 04/04/22 documented as of this encounter Additional Source Comments The information contained in this document represents components of the legal health record. It is not the complete legal health record.[facility]
--- OUTSIDE RECORDS SUMMARY | 2025-11-04 11:13 | XMS_ITS | Clinical Summary ---
Author Organization [facility] Prior to 05/01/[address] [place] [address] Care Team Providers Care Classifier Operator Name Role Phone Unavailable Primary Care Provider Unavailabl e Social History Tobacco Use Types Packs/Day Years Used Date Smoking Tobacco: Never Assessed Sex and Gender Information Value Date Recorded Sex Assigned at Not on file Gender Identity Not on file Sexual Orientation Not on file Plan of Treatment Not on file
--- OUTSIDE RECORDS SUMMARY | 2025-11-04 11:13 | XMS_ITS | Encounter Summary ---
Author Organization [facility] Address [address] [place] [address] Care Team Providers Care Vendor Management Consultant Name Role Phone Melvi Napoles MD Primary Care Provider [phone] Encounter Details Date Type Department Care Team (Latest Contact Info) Description 12/29/2024 Lab Requisition [facility] - Main Lab [address] [facility] [place] [address] Terence Brown MD [address] [address] Polyglandular hyperfunction (CMS/HCC V24, CMS/HCC V28) Social [...] AM EST) Final Diagnosis A. Urine, Voided, ([id number]): Negative for high grade urothelial carcinoma. Results of Uro[employer]ion fluorescence in situ hybridization (FISH) testing: CEP3: Normal CEP7: Normal CEP17: Normal LSI 9p21: Normal Interpretation: Normal profile Controls stained appropriately. Note: The results are intended as a screening device and should be interpreted in association with other clinical and pathological findings. 01/08/2025 3:45 PM EST [facility] ([facility] at 1545 EST Clinical Information Benign essential microscopic hematuria R31.1 Urine Cytology/FISH (now) 01/08/2025 3:45 PM [facility] Gross Description A. Urine, Voided, ([id number]): Received one ThinPrep slide for cytology screen and one ThinPrep slide for UroVysion FISH 01/08/2025 3:45 PM [facility] Disclaimer Unless otherwise specified, all tissue is 10% NB formalin fixed and paraffin embedded. Technical pathology services provided by [facility] [address] [facility] [address] [place] [address] (CLIA #[id number]/Denae Schaffer MD, Credit Collections Clerk) 01/08/2025 3:45 PM [facility] Tissue Urine specimen from urethra / Unknown 12/23/2024 12/29/2024 10:00 AM EST us Terence Brown MD LAB PATHOLOGY ORDERABLES Final R esult [facility] [address] [place] [address], documented in this encounter Visit Diagnoses Diagnosis Polyglandular hyperfunction (CMS/HCC V24, CMS/HCC V28) documented in this encounter Care Teams Vendor Management Consultant Relationship Specialty Start Date End Date Melvi Napoles MD [address] [place] [address] PCP - General Internal Medicine 12/24/24 documented as of this encounter
== END 2025-11-04 10:30 | disposition home or self-care (01) ==
LOC: HO.HMCC 09:44
PROVIDERS: PCP Internal Medicine; Visit Provider Internal Medicine
DX: R05.3 Chronic cough (principal); E55.9 Vitamin D deficiency, unspecified; E78.5 Hyperlipidemia, unspecified; E03.9 Hypothyroidism, unspecified; K21.9 Gastro-esophageal reflux disease without esophagitis

== ENCOUNTER → 2025-11-04 10:35 | Outpatient (BNV) | payer MEDICARE, SELFPAY | PROVIDERS: PCP Internal Medicine; Visit Provider Radiology Diagnostic Ultrasound | DX: J98.09 Other diseases of bronchus, not elsewhere classified (principal) | CPT/HCPCS: 71046 ==